=== PATIENT | male | born 1935 ===

== ENCOUNTER 2025-05-15 18:32 | Outpatient (CLI) | payer MEDICARE, BC, SELFPAY ==
--- OUTSIDE RECORDS SUMMARY | 2013-03-10 07:01 | XMS_ITS | Continuity of Care Document ---
Author Organization [facility] Kamilla Conradt h PA Address [address] [address] [place] [address] Phone Care Team Providers Care Coupon And Bond Collection Clerk Name Role Phone Alonzo Ramirez MD Unavailable Unavailable Procedures Procedure Date Colonoscopy Flex; W/bx 1/mx Colonoscopy Flex; W/remov Les- 13 Ugi Endo; Dx W/wo Collec Specm 07 Advance Directives Directive Yes / No Effective Date File Name No Information Encounters Encounter Description Practice Location Reason(s) For Visit Diagnoses Date Provider Providers Copied on Encounter [facility], [address] [address], [place], [place], [address], tel:[phone] [facility] [place] No Information James Rosado. [address] [place] [address], [address], [id number], [place]. tel:[phone] [facility], [address] [address], [place], [place], [address], [place] tel:[phone] [facility] No Information James Rosado. [address] [facility], [facility] [address], [place], [place], [address], [place]. tel:[phone] Referring Provider: Juve Lewis, [facility] [address] [place], [address]. tel:[phone] [facility], [address] [address], [place], [place], [address], tel:[phone] [facility] No Information James Rosado. [address] [facility], [address], [place], [place], [address], [place]. tel:[phone] Referring Provider: Juve Lewis, [address] [facility], [place], [address]. tel:[phone] Family History Family Member Type Diagnosis Age At Onset No Information Payers Payer name Insurance type Covered green party ID Authoriza tion(s) Medicare NGS MB [id number] [facility] [id number] Social History Type Description Quantity Date Captured [...]
--- OUTSIDE RECORDS SUMMARY | 2013-03-10 07:01 | XMS_ITS | Continuity of Care Document ---
Author Organization [facility] Kamilla Conradt h PA Address [address] [address] [place] [address] Phone Care Team Providers Care Certified Nurses' Aide Name Role Phone Alonzo Ramirez MD Unavailable Unavailable Procedures Procedure Date Colonoscopy Flex; W/bx 1/mx Colonoscopy Flex; W/remov Les- 13 Ugi Endo; Dx W/wo Collec Specm 07 Advance Directives Directive Yes / No Effective Date File Name No Information Encounters Encounter Description Practice Location Reason(s) For Visit Diagnoses Date Provider Providers Copied on Encounter [facility], [address] [address], [place], [place], [id number], tel:[phone] [place] No Information James Rosado. [address] [place] [address], [address], [id number], [place]. tel:[phone] [facility], [address] [address], [place], [place], [address], [place] tel:[phone] [facility] No Information James Rosado. [address] [facility], [facility] [address], [place], [place], [address], [place]. tel:[phone] Referring Provider: Juve Lewis, [facility] [address] [place], [address]. tel:[phone] [facility], [address] [address], [place], [place], [address], tel:[phone] [facility] No Information James Rosado. [address] [facility], [address], [place], [place], [address], [place]. tel:[phone] Referring Provider: Juve Lewis, [address] [facility], [place], [address]. tel:[phone] Family History Family Member Type Diagnosis Age At Onset No Information Payers Payer name Insurance type Covered alliance party ID Authoriza tion(s) Medicare NGS MB [id number] [facility] [id number] Social History Type Description Quantity Date Captured [...]
--- OUTSIDE RECORDS SUMMARY | 2025-05-09 14:02 | XMS_ITS | Encounter Summary ---
Author Organization [facility] Address [address] [place] [address] Care Team Providers Care Superintendent Container Terminal Name Role Phone Brionna Thapa APRN, C.N.P. Primary Care Provide r Encounter Details Date Type Department Care Team (Latest Contact Info) Description 05/09/2025 2:02 PM CDT - 05/09/2025 11:59 PM CDT Hospital Encounter Department of Laboratory Medicine in [place], [place] [address] [place] [phone] [address] M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 No 05/09/2025 Humiliation, Afraid, Rape, and Kick questionnair e Answer Date Recorded Within the last year, have y ou been afraid of your partner or ex-partner? No 06/30/2023 Within the last year, have y ou been humiliated or emotionally abused in other ways by your partner or ex-partner? No Within the last year, have y ou been kicked, hit, slapped, or otherwise physically hurt by your partner or ex-partner? No 06/30/2023 Within the last year, have y ou been raped or forced to have any kind of sexual activity by your partner or ex-partner? No 06/30/2023 Overall Financial Resource Strain (CARDIA) Answe r Date Recorded How hard is it for you to pa y for the very basics like food, housing, medical care, and heating? Not hard at all 06/30/2023 PHQ-2 Answer Date Recorded PHQ-2 Score 0 05/09/2025 Exercise Vital Sign Answer Date Recorde d On average, how many days pe r week do you engage in moderate to strenuous exercise (like a brisk walk)? 0 days 05/09/2025 On average, how many minutes do you engage in exercise at this level? 0 min 05/09/2025 Hunger Vital Sign Answer Date Recorded Within the past 12 months, y ou worried that your food would run out before you got the money to buy more. Never true 05/09/20 25 Within the past 12 months, t he food you bought just didn't last and you didn't have money to get more. Never true 05/09/2025 PRAPARE - Transportation Answer Date Re corded In the past 12 months, has l ack of transportation kept you from medical appointments or from getting medications? No 04/30 In the past 12 months, has l ack of transportation kept you from meetings, work, or from getting things needed for daily living? No 05/09/2025 Nutrition Answer Date Recorded On average, how many serving s of fruits and vegetables do you eat per day (serving size is equal to 1 cup or approximately the size of a tennis ball)? 3-5 05/09/2025 Dental Answer Date Recorded Dental: Regular Dentist Yes 06/30/20 Employment Answer Date Recorded Employment status Retired 05/09/2025 Housing Stability Answer Date Recorded What is your living situation today? 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 90 tablet 3 05/09/2025 apixaban (Eliquis) 2.5 mg tabletIndications: Atrial Fibrillation Paroxysmal (HCC) Take 1 tablet (2.5 mg total) by mouth 2 (two) times a day. 180 tablet 3 05/09/2025 blood sugar diagnostic strips (Contour Next Test Strips) TEST ONCE DAILY.(E11.22, KX) 100 each 3 02/05/2024 glipiZIDE (GlucotroL) 10 mg tabletIndications: Diabetes Mellitus Type 2 With Diabetic Chronic Kidney Disease (HCC) Take 1 tablet (10 mg total) by mouth 2 (two) times a day. 180 tablet 3 05/09/2025 insulin glargine (Lantus Solostar U-100 Insulin) 100 unit/mL (3 mL) penIndications:Estefany betes Mellitus Type 2 With Diabetic Chronic Kidney Disease (HCC) Inject 10 Units under the skin at bedtime. Pharmacy select brand per patient insurance/pref erence. 15 mL 11 05/09/2025 losartan (Cozaar) 25 mg tabletIndications: Chronic Kidney Disease (CKD), Stage 3a Glomerular Filtration Rate (GFR) 45 To 59 (HCC) Take 1 tablet (25 mg total) by mouth daily. 90 tablet 3 05/09/2025 metFORMIN (Glucophage) 1,000 mg tabletIndications: Diabetes Mellitus Type 2 With Diabetic Chronic Kidney Disease (HCC) Take 1 tablet (1,000 mg total) by mouth 2 (two) times a day with meals. 180 tablet 3 05/09/2025 pen needle, diabetic (Comfort EZ Pen [place]) 31 gauge x 1/4 needle 10 Units daily. 100 each 1 09/22/2022 rosuvastatin (Crestor) 20 mg tabletIndications: Hyperlipidemia Take 1 tablet (20 mg total) by mouth daily. 90 tablet 3 05/09/2025 Unifine Pentips 31 gauge x 3/16 needle USE WITH PENS 100 each 3 05/26/2024 documented as of this encounter Plan of Treatment Upcoming Encounters Date Type Department Care Team (Latest Contact Info) Description 05/23/2025 8:00 AM CDT Hospital Encounter Department of Radiology in [place], [place] [address] [facility] [place] [address] Brionna Thapa APRN, C.N.P. [address] [facility] [place] [phone] 05/23/2025 9:30 AM CDT Appointment Department of Cardiovascular Diseases in [place], [place] [address] [facility] [place] [address] Brionna Thapa APRN, C.N.P. [address] [place] [phone] 05/23/2025 10:00 AM CDT Appointment Department of Radiology in [place], [place] [address] [facility] [place] [address] Brionna Thapa APRN, C.N.P. 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 Or Unspecified Chronic Kidney Disease documented in this encounter Results * (ABNORMAL) CBC with Differential, Blood (05/09/2025 2:28 PM CDT) Hemoglobin 10.8(L) 13.2 - 16.6 g/dL 05/09/2025 7:30 PM CDT [facility] Hematocrit 33.0(L) 38.3 - 48.6 % 05/09/2025 7:30 PM CDT [facility] Erythrocytes 3.59(L) 4.35 - 5.65 x10(12)/L 05/09/2025 7:30 PM CDT [facility] MCV 91.9 78.2 - 97.9 fL 05/09/2025 7:30 PM CDT [facility] RBC Distrib Width 15.2(H) 11.8 - 14.5 % 05/09/2025 7:30 PM CDT [facility] Platelet Count 194 135 - 317 x10(9)/L 05/09/2025 7:30 PM CDT [facility] Leukocytes 4.9 3.4 - 9.6 x10(9)/L 05/09/2025 7:30 PM CDT [facility] Neutrophils 3.64 1.56 - 6.45 x10(9)/L 05/09/2025 7:30 PM CDT [facility] Lymphocytes 0.78(L) 0.95 - 3.07 x10(9)/L 05/09/2025 7:30 PM CDT [facility] Monocytes 0.32 0.26 - 0.81 x10(9)/L 05/09/2025 7:30 PM CDT [facility] Eosinophils 0.11 0.03 - 0.48 x10(9)/L 05/09/2025 7:30 PM CDT [facility] Basophils <0.04 0.01 - 0.08 x10(9)/L 05/09/2025 7:30 PM CDT [facility] Blood (Blood, Venous) 05/09/2025 2:28 PM CDT 05/09/2025 7:21 PM CDT us Juve Wade M.D. LAB BLOOD ADD-ON Final Re sult [facility] [address] [place] [address], [place] [facility] [place] [address] [place] [address] * (ABNORMAL) Basic Metabolic Panel (05/09/2025 2:28 PM CDT) Potassium, P 5.0 3.6 - 5.2 mmol/L 05/09/2025 7:39 PM CDT [facility] Sodium, P 141 135 - 145 mmol/L 05/09/2025 7:39 PM CDT [facility] Chloride, P 108(H) 98 - 107 mmol/L 05/09/2025 7:39 PM CDT [facility] Bicarbonate, P 22 22 - 29 mmol/L 05/09/2025 7:39 PM CDT [facility] Anion Gap, P 11 7 - 15 05/09/2025 7:39 PM CDT [facility] BUN (Blood Urea Nitrogen), P 20 8 - 24 mg/dL 05/09/2025 7:39 PM CDT [facility] Creatinine 1.27 0.74 - 1.35 mg/dL 05/09/2025 7:39 PM CDT [facility] Estimated GFR (eGFR) 55(L) >=60 mL/min/BSA 05/09/2025 7:39 PM CDT [facility] Comment: Estimated GFR calculated using the 2020 CKD_EPI creatinine equation. Calcium, Total, P 9.3 8.8 - 10.2 mg/dL 05/09/2025 7:39 PM CDT [facility] Glucose, P 147(H) 70 - 140 mg/dL 05/09/2025 7:39 PM CDT [facility] Blood (Blood, Venous) 05/09/2025 2:28 PM CDT 05/09/2025 7:21 PM CDT us Juve Wade M.D. LAB BLOOD ADD-ON Final Zora leiva [facility] [address] [place] [address], [place] [facility] [place] [address] [place] [address] * (ABNORMAL) Hemoglobin A1c (05/09/2025 2:28 PM CDT) Hemoglobin A1c, B 7.6(H) 4.2 - 5.6 % 05/09/2025 7:48 PM CDT [facility] Comment: Hemoglobin A1c values greater than or equal to 6.5 percent are diagnostic for diabetes mellitus. Diagnosis should be confirmed by repeat testing. In diabetic patients, HbA1c goals should be discussed with healthcare provider. Blood (Blood, Venous) 05/09/2025 2:28 PM CDT 05/09/2025 7:21 PM CDT Juve Wade M.D. 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 [address] [place] [address] PCP - General 04/28/25 documented as of this encounter
--- OUTSIDE RECORDS SUMMARY | 2025-05-09 14:02 | XMS_ITS | Encounter Summary ---
Author Organization [facility] Address [address] [place] [address] Care Team Providers Care Paste Worker Name Role Phone Brionna Thapa APRN, C.N.P. Primary Care Provide r Encounter Details Date Type Department Care Team (Latest Contact Info) Description 05/09/2025 2:02 PM CDT - 05/09/2025 11:59 PM CDT Hospital Encounter Department of Laboratory Medicine in [place], [place] [address] [place] [phone] [address] M[address] [place] [phone] Diabetes Mellitus Type 2 With Diabetic Chronic [...] drink = 0.6 oz pur e alcohol) [facility] Utilities Answer Date Recorded In the [...] your living situation today? 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 [address] [place] [phone] 05/23/2025 9:30 AM CDT Appointment Department of Cardiovascular Diseases in [place], [place] [address] [place] [address] Brionna Thapa APRN, C.N.P. [address] [place] [phone] 05/23/2025 10:00 AM CDT Appointment Department of Radiology in [place], [place] [address] [place] [address] Brionna Thapa APRN, C.N.P. [address] [place] [phone] documented as of this encounter Procedures Procedure [...] M.D. LAB BLOOD ADD-ON Final Re sult [facility] [address] [place] [address], [place] [facility] [address] [place] [address] * (ABNORMAL) Basic Metabolic Panel (05/09/2025 2:28 [...] M.D. LAB BLOOD ADD-ON Final Zora leiva [facility] [address] [place] [address], [place] [facility] [address] [place] [address] * (ABNORMAL) Hemoglobin A1c (05/09/2025 2:28 PM [...] M.D. 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 [address] [place] [address] PCP - General 04/28/25 documented as of this encounter
--- OUTSIDE RECORDS SUMMARY | 2025-05-09 14:30 | XMS_ITS | Encounter Summary ---
Author Organization [facility] Address [address] [place] [address] Care Team Providers Care Title Insurance Agent Name Role Phone Brionna Thapa APRN, C.N.P. Primary Care Provide r Reason for Referral * Occupational Therapy (Routine) - Authorized Specialty Diagnoses / Procedures Referred By Isaac t Referred To Contact Diagnoses Loss Memory Procedures OT Evaluate and treat Brionna Thapa APRN, C.N.P. [address] [place] [address] Phone: tel: fax: [facility] Region Referral ID Status Reason Start Date Expiration Date V isits Requested Visits Authorized [id number] Authorized 05/09/2025 08/09/2026 99 99 * Outpatient (Routine) - Authorized Specialty Diagnoses / Procedures Referred By Contac t Referred To Contact Diagnoses Inadequate Housing Utilities Procedures Community health worker (CHW) education program Brionna Thapa APRN, C.N.P. [address] [place] [address] Phone: tel: fax: [facility] Region Referral ID Status Reason Start Date Expiration Date V isits Requested Visits Authorized [id number] Authorized 05/09/2025 08/09/2026 20 20 * Outpatient (Routine) - Authorized Specialty Diagnoses / Procedures Referred By Contac t Referred To Contact Diagnoses Pain Chest Procedures NM Cardiac Perfusion Rest and Stress SPECT Brionna Thapa APRN, C.N.P. [address] [place] [address] Phone: tel: fax: [facility] Region Referral ID Status Reason Start Date Expiration Date V isits Requested Visits Authorized [id number] Authorized 05/09/2025 08/09/2026 4 4 * Outpatient (Routine) - Closed Specialty Diagnoses / Procedures Referred By Contac t Referred To Contact Diagnoses Pain Chest Procedures ECG 12 Lead [place] EKG 12 LEAD W I&R Brionna Thapa APRN, C.N.P. [address] [place] [address] Phone: tel: fax: [facility] Region Referral ID Status Reason Start Date Expiration Date Visits Re quested Visits Authorized [id number] Closed 05/09/2025 08/09/2026 1 1 Reason for Visit * Reason Comments Diabetes * Outpatient (Routine) - Closed Specialty Diagnoses / Procedures Referred By Contac t Referred To Contact Family Medicine Juve Wade M.D. [address] [place] [address] Phone: tel: fax: [facility] Region Referral ID Status Reason Start Date Expiration Date Visits Re quested Visits Authorized [id number] Closed 11/22/2024 05/24/2026 1 1 Encounter Details Date Type Department Care Team (Late st Contact Info) Description 05/09/2025 2:30 PM CDT Office Visit Department of Family Medicine in [place] [address] [place] [address] Brionna Thapa, JAKOB, C.N.P. [address] [place] [phone] Advanced Care Planning (Primary Dx); Pain Chest; [...] drink = 0.6 oz pur e alcohol) [facility] Utilities Answer Date Recorded In the past 12 months has [employer], [employer], or water [employer] threatened to shut off services in your [...] your living situation today? 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 - 05/09/2025 2:30 PM CDT SUBJECTIVE CHIEF COMPLAINT / REASON FOR VISIT Diabetes HISTORY OF PRESENT ILLNESS Jean Claude Zamora is a 89 y.o. male who presents [...] Glomerular Filtration Rate (GFR) 45 To 59 ([facility]) Blood pressure is mildly elevated today which [...] point we will arrange for a driving evaluation.If memory is worsening patient will need further evaluation. - OT Evaluate and treat; Future All of patient's questions were answered. Patient is agreeable with plan outlined above. Patient will return to clinic if symptoms do not improve as expected or become worse. documented in this encounter Plan of Treatment Upcoming Encounters Date Type Department Care Team (Latest Contact Info) Description 05/23/2025 8:00 AM CDT Hospital Encounter Department of Radiology in [place], [place] [address] [facility] [place] [phone] Brionna Thapa APRN, C.N.P. [address] [place] [facility] [place] [phone] 05/23/2025 9:30 AM CDT Appointment Department of Cardiovascular Diseases in [place], [place] [address] [facility] [place] [phone] Brionna Thapa APRN, C.N.P. [address] [place] [phone] 05/23/2025 10:00 AM CDT Appointment Department of Radiology in [place], [place] [address] [place] [phone] Brionna Thapa APRN, C.N.P. [address] [place] [phone] Scheduled Orders Name Type Priority Associated Diagnoses [...] MUSE QTC Interval 521 ms MUSE R [place] -85 degrees MUSE T Wave [place] 93 degrees MUSE 05/10/2025 10:2 7 AM [...] replaced Atrial tachycardia Reviewed by DALIA Chase us Brionna Thapa APRN, C.N.P. ECG ORDERABLES Edite [...] Memory Pain Chest documented in this encounter Care Teams Title Insurance Agent Relationship Specialty Start Date End Date Brionna Thapa APRN, [place] [phone] PCP - General 04/28/25 documented as of this encounter
--- OUTSIDE RECORDS SUMMARY | 2025-05-09 14:30 | XMS_ITS | Encounter Summary ---
Author Organization [facility] Address [address] [place] [address] Care Team Providers Care Dry Press Operator Name Role Phone Brionna Thapa APRN, C.N.P. Primary Care Provide r Reason for Referral * Occupational Therapy (Routine) - Authorized Specialty Diagnoses / Procedures Referred By Isaac t Referred To Contact Diagnoses Loss Memory Procedures OT Evaluate and treat Brionna Thapa APRN, C.N.P. [address] [place] [address] Phone: tel: fax: [facility] Region Referral ID Status Reason Start Date Expiration Date V isits Requested Visits Authorized [id number] Authorized 05/09/2025 08/09/2026 99 99 * Outpatient (Routine) - Authorized Specialty Diagnoses / Procedures Referred By Contac t Referred To Contact Diagnoses Inadequate Housing Utilities Procedures Community health worker (CHW) education program Brionna Thapa APRN, C.N.P. [address] [place] [address] Phone: tel: fax: [facility] Region Referral ID Status Reason Start Date Expiration Date V isits Requested Visits Authorized [id number] Authorized 05/09/2025 08/09/2026 20 20 * Outpatient (Routine) - Authorized Specialty Diagnoses / Procedures Referred By Contac t Referred To Contact Diagnoses Pain Chest Procedures NM Cardiac Perfusion Rest and Stress SPECT Brionna Thapa APRN, C.N.P. [address] [place] [address] Phone: tel: fax: [facility] Region Referral ID Status Reason Start Date Expiration Date V isits Requested Visits Authorized [id number] Authorized 05/09/2025 08/09/2026 4 4 * Outpatient (Routine) - Closed Specialty Diagnoses / Procedures Referred By Contac t Referred To Contact Diagnoses Pain Chest Procedures ECG [address] EKG 12 LEAD W I&R Brionna Thapa APRN, C.N.P. [address] [place] [address] Phone: tel: fax: [facility] Region Referral ID Status Reason Start Date Expiration Date Visits Re quested Visits Authorized [id number] Closed 05/09/2025 08/09/2026 1 1 Reason for Visit * Reason Comments Diabetes * Outpatient (Routine) - Closed Specialty Diagnoses / Procedures Referred By Contac t Referred To Contact Family Medicine Juve Wade M.D. [address] [place] [address] Phone: tel: fax: [facility] Region Referral ID Status Reason Start Date Expiration Date Visits Re quested Visits Authorized [id number] Closed 11/22/2024 05/24/2026 1 1 Encounter Details Date Type Department Care Team (Late st Contact Info) Description 05/09/2025 2:30 PM CDT Office Visit Department of Family Medicine in [place] [address] [place] [address] Brionna Thapa, JAKOB, C.N.P. [address] [place] [phone] Advanced Care Planning (Primary Dx); Pain Chest; [...] drink = 0.6 oz pur e alcohol) [facility] Utilities Answer Date Recorded In the past 12 months has [employer], [employer], or water [employer] threatened to shut off services in your [...] your living situation today? 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 - 05/09/2025 2:30 PM CDT SUBJECTIVE [...] Glomerular Filtration Rate (GFR) 45 To 59 ([facility]) Blood pressure is mildly elevated today which [...] CDT Hospital Encounter Department of Radiology in [place], [place] [address] [place] [phone] Brionna Thapa APRN, C.N.P. [address] [place] [facility] [place] [phone] 05/23/2025 9:30 AM CDT Appointment Department of Cardiovascular Diseases in [place], [place] [address] [place] [phone] Brionna Thapa APRN, C.N.P. [address] [place] [phone] 05/23/2025 10:00 AM CDT Appointment Department of Radiology in [place], [place] [address] [place] [phone] Brionna Thapa APRN, C.N.P. [address] [place] [phone] Scheduled Orders Name Type Priority Associated Diagnoses [...] MUSE QTC Interval 521 ms MUSE R [place] -85 degrees MUSE T Wave [place] 93 degrees MUSE 05/10/2025 10:2 7 AM [...] Chest documented in this encounter Care Teams Dry Press Operator Relationship Specialty Start Date End Date Brionna Thapa APRN[place] [phone] PCP - General 04/28/25 documented as of this encounter
--- OUTSIDE RECORDS SUMMARY | 2025-05-09 15:00 | XMS_ITS | Encounter Summary ---
Author Organization [facility] Address [address] [place] [address] Care Team Providers Care Sports Therapist Name Role Phone Brionna Thapa APRN, C.N.P. Primary Care Provide r Reason for Referral * Outpatient (Routine) - Authorized Specialty Diagnoses / Procedures Referred By Isaac murray Referred To Contact Family Medicine Brionna Thapa APRN, C.N.P. [address] [place] [address] Phone: tel: fax: [facility] Region Referral ID Status Reason Start Date Expiration Date V isits Requested Visits Authorized [id number] Authorized 05/09/2025 11/08/2026 1 1 Scheduling Instructions 12-Month Medicare Visit Reason for Visit * Reason Comments Medicare Annual Wellness Visit Subsequen t Encounter Details Date Type Department Care Team (Late st Contact Info) Description 05/09/2025 3:00 PM CDT Office Visit Department of Family Medicine in [place], [place] [address] [place] [phone] Zita Rooney, R.N. Annual Medicare Examination Return (Primary Dx) Social History Tobacco Use Types Packs/Day Years Used Date Smoking Tobacco: Never Smokeless Tobacco: Never Alcohol Use Standard Drinks/Week Comments Not Currently 0 (1 standard drink = 0.6 oz pur e alcohol) [facility] Utilities Answer Date Recorded In the past 12 months has th e electric, gas, oil, or water company [...] your living situation today? 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 - 05/09/2025 3:00 PM CDT HEALTH ASSESSMENT Reason For Visit Patient presents with Medicare Annual Wellness Visit Subsequent Face to Face The following portions of the patient's history were reviewed and updated as appropriate: allergies, medications, family history, social history, surgical history and care team/suppliers. VITALS Blood Pressure: 146/73 (05/09/2025 2:06 PM) Temperature: 36.6 ??C (05/09/2025 2:01 PM) Temp Source: Temporal (05/09/2025 2:01 PM) Pulse Rate: 81 (05/09/2025 2:01 PM) BMI (Calculated): 31 kg/m?? (05/09/2025 2:01 PM) SpO2: 94 % (05/09/2025 2:01 PM) Height: 172.4 cm (05/09/2025 2:01 PM) Weight: 92.1 kg (05/09/2025 2:01 PM) Health Risk Assessment and Social Drivers of Health Health Risk Assessment (HRA) completed and reviewed: Yes Social Drivers of Health (SDOH) questionnaires were reviewed during this visit. The following concerns were prioritized to be addressed: No concerns identified. Depression Screening PHQ-2 Score: 0 Cognitive Assessment Score is 2 or less, provider notified to complete more detailed cognitive evaluation. Education provided. Current Opioid Use None Education regarding non-opioid options for pain management not applicable at this time. FUNCTIONAL/HOME ENVIRONMENT History of falls: Have you fallen within the last year or do you fear you might fall?: No (05/09/2025 2:04 PM) Do you use an assisted device to walk? (Walker, cane, wheelchair, crutch): No (05/09/2025 2:04 PM) Today, do you feel any of the following? Weak, dizzy, shaky, or unsteady?: No (05/09/2025 2:04 PM) Have you taken any medication within the last 6 hours which may make you feel drowsy? Such as sleep, pain, or anxiety medication: No (05/09/2025 2:04 PM) Home Safety Patient's home contains the following: Throw Rugs No. Adequate lighting: Yes. Slippery bathtub and/or shower surfaces: No. Grab bars installed in the bathroom: No. Discussed that these may help to reduce the risk of falls and patient will consider installing them as appropriate. Handrails on steps/stairs: Yes. Functional smoke/carbon monoxide alarms: Yes. Patient is reminded to change the batteries every 6 months if device is not A/C powered or hard-wired into the home. Advance Directive Advance Directives: Not Received Advance directive information given. Preventive Services Schedule Health Maintenance Topic Date Due Zoster Vaccines (1 of 2) Never done Hepatitis B Vaccines (1 of 3 - Risk 3-dose series) Never done DTaP,Tdap,and Td Vaccines (2 - Td or Tdap) 10/11/2023 Diabetic Office Visit with Foot Exam 03/17/2024 Visit: Medicare Annual Wellness 2024 Creatinine Level (Kidney Function Test) 02/04/2025 Potassium Level 02/04/2025 Sodium Level 02/04/2025 Hemoglobin A1C 02/16/2025 Urine Albumin 08/08/2025 Visit: Chronic Disease, age 18+ 08/09/2025 COVID-19 Vaccine (2023- season) 2025 (Originally 03/11/2025) RSV vaccine - (32-36 weeks) or 60+ years (1 - 1-dose 75+ series) 05/10/2025 (Originally 2012) Influenza Vaccine (1) 05/10/2025 (Originally 08/30/2024) Dilated Eye Exam 01/11/2026 Depression Screening (Annual PHQ-2) Completed Fall Risk Screen (Annual) Completed Pneumococcal vaccine (50+ years) Completed IPV Vaccines Aged Out After Visit Summary (AVS) reviewed and patient provided with printed copy documented in this encounter Plan of Treatment Upcoming Encounters Date Type Department Care Team (Latest Contact Info) Description 05/23/2025 8:00 AM CDT Hospital Encounter Department of Radiology in [place] [address] [place] [address] Brionna Thapa APRN, C.N.P. [address] [place] [address] 05/23/2025 9:30 AM CDT Appointment Department of Cardiovascular Diseases in [place] [address] [place] [address] Brionna Thapa APRN, C.N.P. [address] [place] [address] 05/23/2025 10:00 AM CDT Appointment Department of Radiology in [place] [address] [place] [address] Brionna Thapa APRN, C.N.P. [address] [place] [address] Scheduled Referrals Name Type Priority Associated Diagnoses Orde r Schedule Family Medicine nurse visit (clinic) Outpatient Referral Routine Expected: 05/09/2026 (Approximate), Expires: 08/09/2026 documented as of this encounter Visit Diagnoses Diagnosis Annual Medicare Examination Return- Primary documented in this encounter Care Teams Sports Therapist Relationship Specialty Start Date End Date Brionna Thapa APRN, C.N.P. [address] [place] [address] PCP - General 04/28/25 documented as of this encounter
--- OUTSIDE RECORDS SUMMARY | 2025-05-09 15:00 | XMS_ITS | Encounter Summary ---
Author Organization [facility] Address [address] [place] [address] Care Team Providers Care [facility] Name Role Phone Brionna Thapa APRN, C.N.P. Primary Care Provide r Reason for Referral * Outpatient (Routine) - Authorized Specialty Diagnoses / Procedures Referred By Isaac murray Referred To Contact Family Medicine Brionna Thapa APRN, C.N.P. [address] [place] [address] Phone: tel: fax: [facility] Region Referral ID Status Reason Start Date Expiration Date V isits Requested Visits Authorized [id number] Authorized 05/09/2025 11/08/2026 1 1 Scheduling Instructions 12-Month Medicare Visit Reason for Visit * Reason Comments Medicare Annual Wellness Visit Subsequen t Encounter Details Date Type Department Care Team (Late st Contact Info) Description 05/09/2025 3:00 PM CDT Office Visit Department of Family Medicine in [place], [place] [address] [place] [phone] Zita Rooney, R.N. Annual Medicare Examination Return (Primary Dx) Social History Tobacco Use Types Packs/Day Years Used Date Smoking Tobacco: Never Smokeless Tobacco: Never Alcohol Use Standard Drinks/Week Comments Not Currently 0 (1 standard drink = 0.6 oz pur e alcohol) [facility] Utilities Answer Date Recorded In the past [...] your living situation today? 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 [address] [place] [address] 05/23/2025 9:30 AM CDT Appointment Department of Cardiovascular Diseases in [place] [address] [place] [address] Brionna Thapa APRN, C.N.P. [address] [place] [address] 05/23/2025 10:00 AM CDT Appointment Department of Radiology in [place] [address] [place] [address] Brionna Thapa APRN, C.N.P. [address] [place] [address] Scheduled Referrals Name Type Priority Associated Diagnoses Orde r Schedule Family Medicine nurse visit (clinic) Outpatient Referral Routine Expected: 05/09/2026 (Approximate), Expires: 08/09/2026 documented as of this encounter Visit Diagnoses Diagnosis Annual Medicare Examination Return- Primary documented in this encounter Care Teams [facility] Relationship Specialty Start Date End Date Brionna Thapa APRN, C.N.P. [address] [place] [address] PCP - General 04/28/25 documented as of this encounter
--- OUTSIDE RECORDS SUMMARY | 2025-05-10 10:14 | XMS_ITS | Encounter Summary ---
Author Organization [facility] Address [address] [place] [address] Care Team Providers Care Jet Mechanic Name Role Phone Brionna Thapa APRN, C.N.P. Primary Care Provide r Reason for Referral * Outpatient (Routine) - Closed Specialty Diagnoses / Procedures Referred By Contac t Referred To Contact Diagnoses Pain Chest Procedures ECG 12 Lead [place] EKG 12 LEAD W I&R Brionna Thapa APRN, C.N.P. [address] [place] [address] Phone: tel: fax: [facility] Region Referral ID Status Reason Start Date Expiration Date Visits Re quested Visits Authorized [id number] Closed 05/09/2025 08/09/2026 1 1 Reason for Visit * Outpatient (Routine) - Closed Specialty Diagnoses / Procedures Referred By Contac t Referred To Contact Diagnoses Pain Chest Procedures ECG 12 Lead UT EKG 12 LEAD W I&R Brionna Thapa APRN, C.N.P. [address] [place] [address] Phone: tel: fax: [facility] Region Referral ID Status Reason Start Date Expiration Date Visits Re quested Visits Authorized [id number] Closed 05/09/2025 08/09/2026 1 1 Encounter Details Date Type Department Care Team (Latest Contact Info) Description 05/10/2025 10:14 AM CDT - 05/10/2025 11:59 PM CDT Hospital Encounter Department of Laboratory Medicine in [place], [place] [address] [place] [address] Brionna Thapa, JAKOB, C.N.P. [address] [place] [address] Pain Chest Discharge Disposition: Home or Self Care Social History Tobacco Use Types Packs/Day Years Used Date Smoking Tobacco: Never Smokeless Tobacco: Never Alcohol Use Standard Drinks/Week Comments Not Currently 0 (1 standard drink = 0.6 oz pur e alcohol) [facility] Utilities Answer Date Recorded In the past 12 months has e [employer], gas, oil, or water [employer] threatened to shut off services in your [...] your living situation today? 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 [address] [place] [address] 05/23/2025 9:30 AM CDT Appointment Department of Cardiovascular Diseases in [place], [place] [address] [place] [address] Brionna Thapa APRN, C.N.P. [address] [place] [address] 05/23/2025 10:00 AM CDT Appointment Department of Radiology in [place], [place] [address] [facility] [place] [phone] Brionna Thapa APRN, C.N.P. [address] [place] [phone] documented as of this encounter Procedures Procedure Name Priority Date/Time Associated Diagnosis Comments ECG Routine 05/10/2025 10:27 AM CDT Pain Chest documented in this encounter Results * ECG 12 Lead (05/10/2025 10:27 AM CDT) Ventricular Rate ECG/Min 61 BPM MUSE QRSD Interval 194 ms MUSE QT Interval 518 ms MUSE QTC Interval 521 ms MUSE R [place] -85 degrees MUSE T Wave [place] 93 degrees MUSE 05/10/2025 10:2 7 AM [...] documented in this encounter Visit Diagnoses Diagnosis Pain Chest documented in this encounter Care Teams Jet Mechanic Relationship Specialty Start Date End Date Brionna Thapa APRN, C.N.P. [address] [place] [address] PCP - General 04/28/25 documented as of this encounter
--- OUTSIDE RECORDS SUMMARY | 2025-05-10 10:14 | XMS_ITS | Encounter Summary ---
Author Organization [facility] Address [address] [place] [address] Care Team Providers Care Check Writing Machine Operator Name Role Phone Brionna Thapa APRN, C.N.P. Primary Care Provide r Reason for Referral * Outpatient (Routine) - Closed Specialty Diagnoses / Procedures Referred By Contac t Referred To Contact Diagnoses Pain Chest Procedures ECG 12 Lead GA EKG 12 LEAD W I&R Brionna Thapa APRN, C.N.P. [address] [place] [address] Phone: tel: fax: [facility] Region Referral ID Status Reason Start Date Expiration Date Visits Re quested Visits Authorized [id number] Closed 05/09/2025 08/09/2026 1 1 Reason for Visit * Outpatient (Routine) - Closed Specialty Diagnoses / Procedures Referred By Contac t Referred To Contact Diagnoses Pain Chest Procedures ECG 12 Lead GA EKG 12 LEAD W I&R Brionna Thapa APRN, C.N.P. [address] [place] [address] Phone: tel: fax: [facility] Region Referral ID Status Reason Start Date Expiration Date Visits Re quested Visits Authorized [id number] Closed 05/09/2025 08/09/2026 1 1 Encounter Details Date Type Department Care Team (Latest Contact Info) Description 05/10/2025 10:14 AM CDT - 05/10/2025 11:59 PM CDT Hospital Encounter Department of Laboratory Medicine in [place], [place] [address] [place] [address] Brionna Thapa, JAKOB, C.N.P. [address] [place] [address] Pain Chest Discharge Disposition: Home or Self Care Social History Tobacco Use Types Packs/Day Years Used Date Smoking Tobacco: Never Smokeless Tobacco: Never Alcohol Use Standard Drinks/Week Comments Not Currently 0 (1 standard drink = 0.6 oz pur e alcohol) [facility] Utilities Answer Date Recorded In the past 12 months has e [employer], gas, oil, or water [employer] threatened to shut off services in your [...] your living situation today? I have a [facility] place to live 05/09/2025 Sex and Gender Information Value Date Recorded Sex Assigned at Male 08/20/2021 10:13 AM CDT Legal Sex Male 4:47 PM METAL MIN[employer] Gender Identity Not on file Sexual Orientation [...] 05/09/2025 pen needle, diabetic (Comfort EZ Pen Calmar) 31 gauge x 1/4 needle 10 Units [...] CDT Hospital Encounter Department of Radiology in [place], [place] [address] [place] [address] Brionna Thapa APRN, C.N.P. [address] [place] [address] 05/23/2025 9:30 AM CDT Appointment Department of Cardiovascular Diseases in [place], [place] [address] [place] [facility] [place] [address] Brionna Thapa APRN, C.N.P. [address] [place] [address] 05/23/2025 10:00 AM CDT Appointment Department of Radiology in [place], [place] [address] [facility] [place] [place] [phone] Brionna Thapa APRN, C.N.P. [address] [place] [phone] documented as of this encounter Procedures Procedure Name Priority Date/Time Associated Diagnosis Comments ECG Routine 05/10/2025 10:27 AM CDT Pain Chest documented in this encounter Results * ECG 12 Lead (05/10/2025 10:27 AM CDT) Ventricular Rate ECG/Min 61 BPM MUSE QRSD Interval 194 ms MUSE QT Interval 518 ms MUSE QTC Interval 521 ms MUSE R [place] -85 degrees MUSE T Wave [place] 93 degrees MUSE 05/10/2025 10:2 7 AM [...] Chest documented in this encounter Care Teams Check Writing Machine Operator Relationship Specialty Start Date End Date Brionna Thapa APRN, C.N.P. [address] [place] [address] PCP - General 04/28/25 documented as of this encounter
--- OUTSIDE RECORDS SUMMARY | 2025-05-18 18:10 | XMS_ITS | Encounter Summary ---
Author Organization [facility] Address [address] [place] [address] Care Team Providers Care Plant Tender Name Role Phone Brionna Thapa APRN, C.N.P. Primary Care Provide r Encounter Details Date Type Department Care Team (Late st Contact Info) Description 05/11/2025 Results Follow-Up Department of Family Medicine in [place], [place] [address] [place] [phone] Brionna Thapa APRN, C.N.P. [address] [place] [address] ECG 12 Lead Social History Tobacco Use Types Packs/Day Years Used Date Smoking Tobacco: Never Smokeless Tobacco: Never Alcohol Use Standard Drinks/Week Comments Not Currently 0 (1 standard drink = 0.6 oz pur e alcohol) [facility] Utilities Answer Date Recorded In the past 12 months has [facility] [employer], gas, oil, or water [employer] threatened to shut off services in your [...] your living situation today? 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 - 05/11/2025 7:31 AM CDT Please let Mr. Zamora know labs look OK. Plan to follow up with DM check in 6 months. His EKG is stable. Follow up with stress test as ordered. If symptoms worsen or do not go away with rest, he should go to the ER. Thanks, SF documented in this encounter Plan of Treatment Upcoming Encounters Date Type Department Care Team (Latest Contact Info) Description 05/23/2025 8:00 AM CDT Hospital Encounter Department of Radiology in [place] [address] [place] [address] Brionna Thapa APRN, C.N.P. [address] [place] [phone] 05/23/2025 9:30 AM CDT Appointment Department of Cardiovascular Diseases in [place] [address] [place] [address] Brionna Thapa APRN, C.N.P. [address] [place] [phone] 05/23/2025 10:00 AM CDT Appointment Department of Radiology in [place] [address] [place] [address] Brionna Thapa APRN, C.N.P. [address] [place] [phone] documented as of this encounter Visit Diagnoses Not on filedocumented in this encounter Care Teams Plant Tender Relationship Specialty Start Date End Date Brionna Thapa APRN, C.N.P. [address] [place] [phone] PCP - General 04/28/25 documented as of this encounter
--- OUTSIDE RECORDS SUMMARY | 2025-05-18 18:10 | XMS_ITS | Clinical Summary ---
Author Organization [facility] Address [address] [place] [address] Care Team Providers Care Supervisor Drying Name Role Phone Brionna Thapa APRN, C.N.P. Primary Care Provide r Source Comments Patient records contain information from all sites at [facility]. For routine questions regarding patient records, call [phone] during business hours, M-F 8:00 AM - 5:00 PM Central Time. Record requests for emergency care only can be directed to [phone] at any time.[facility] Allergies Active Allergy Reactions Criticality Noted Date Comments Daniel Inhibitors Edema (Reselect Reaction) 09/07/2018 Colchicine Other (see comments) Low 12/01/2018 Balance problems Sulfa (Sulfonamide Antibiotics) Rash 02/07/2013 Medications pen needle, diabetic (Comfort EZ Pen [place]) 31 gauge x 1/4 needle 10 Units daily. 100 each 1 09/22/20 22 Active blood sugar diagnostic strips (Contour Next Test Strips) TEST ONCE DAILY.(E11.22, KX) 100 each 3 02/05/20 24 Active Unifine Pentips 31 gauge x 3/16 needle USE WITH PENS 100 each 3 05/26/20 24 Active amLODIPine (Norvasc) 10 mg tabletIndicatio ns:Hypertensive Heart And Chronic Kidney Disease Without Heart Failure With Stage 1 To 4 Chronic Kidney Disease Or Unspecified Chronic Kidney Disease Take 1 tablet (10 mg total) by mouth daily. 90 tablet 3 05/09/20 25 Active apixaban (Eliquis) 2.5 mg tabletIndicatio ns:Atrial Fibrillation Paroxysmal (HCC) Take 1 tablet (2.5 mg total) by mouth 2 (two) times a day. 180 tablet 3 05/09/20 25 Active glipiZIDE (GlucotroL) 10 mg tabletIndicatio ns:Diabetes Mellitus Type 2 With Diabetic Chronic Kidney Disease (HCC) Take 1 tablet (10 mg total) by mouth 2 (two) times a day. 180 tablet 3 05/09/20 25 Active insulin glargine (Lantus Solostar U-100 Insulin) 100 unit/mL (3 mL) penIndications: Diabetes Mellitus Type 2 With Diabetic Chronic Kidney Disease (HCC) Inject 10 Units under the skin at bedtime. Pharmacy select brand per patient insurance/preferen ce. 15 mL 05/09/20 25 Active losartan (Cozaar) 25 mg tabletIndicatio ns:Chronic Kidney Disease (CKD), Stage 3a Glomerular Filtration Rate (GFR) 45 To 59 (HCC) Take 1 tablet (25 mg total) by mouth daily. 90 tablet 3 05/09/20 25 Active metFORMIN (Glucophage) 1,000 mg tabletIndicatio ns:Diabetes Mellitus Type 2 With Diabetic Chronic Kidney Disease (HCC) Take 1 tablet (1,000 mg total) by mouth 2 (two) times a day with meals. 180 tablet 3 05/09/20 25 Active rosuvastatin (Crestor) 20 mg tabletIndicatio ns:Hyperlipidem ia Take 1 tablet (20 mg total) by mouth daily. 90 tablet 3 05/09/20 25 Active Eliquis 2.5 mg tablet TAKE 1 TABLET BY MOUTH 2 TIMES A DAY. ANTICOAGULATION FOR AFIB 180 tablet 3 01/06/20 24 025 Discontin ued(Reord er) insulin glargine (Lantus Solostar U-100 Insulin) 100 unit/mL (3 mL) injection Inject 10 Units under the skin at bedtime. Pharmacy select brand per patient insurance/preferen ce. 15 mL 04/01/20 24 025 Discontin ued(Reord er) amLODIPine (Norvasc) 10 mg tablet take 1 tablet by mouth daily. 90 tablet 3 06/08/20 24 025 Discontin ued(Reord er) glipiZIDE (GlucotroL) 10 mg tablet take 1 tablet by mouth 2 times a day. 180 tablet 3 06/29/20 24 025 Discontin ued(Reord er) metFORMIN (Glucophage) 1,000 mg tablet TAKE 1 TABLET BY MOUTH 2 TIMES A DAY WITH MEALS. 180 tablet 2 01/26/20 25 025 Discontin ued(Reord er) losartan (Cozaar) 25 mg tablet Take 1 tablet (25 mg total) by mouth daily. Patient needs Labs for further refills. 90 tablet 03/24/20 25 025 Discontin ued(Reord er) rosuvastatin (Crestor) 20 mg tablet TAKE 1 TABLET BY MOUTH DAILY. 90 tablet 3 04/03/20 25 025 Discontin ued(Reord er) Active Problems Problem Noted Date Diagnosed Date Leukocytosis 03/19/2021 Herniorrhaphy Inguinal Status Post 03/18/2021 Diabetes Mellitus Type 2 Wit h Diabetic Chronic Kidney Disease 02/27/2021 Presence Cardioverter- Defibrillator (ICD And AI CD) 11/28/2019 Assessment & Plan (07/04/2020 8:54 AM CDT): status post ICD placement for secondary prevention of sudden cardiac after two episodes of fast ventricular tachycardia that resulted in syncope Following with Cardiology at [facility] Chronic Kidney Disease (CKD) , Stage 3a Glomerular Filtration Rate (GFR) 45 To 59 11/01/2019 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 Metoprolol was discontinued 1 week prior to his elective cardioversion. First attempt converted his atrial fibrillation is slow flutter with second attempt synchronized 150 J which put him back into sinus rhythm with significant first-degree AV block. Recommended results continued Xarelto for at least another month but does not need beta blockade due to his sinus node and AV node disease. [id number] score at least 3 (HTN, age-2) On Xarelto Overview: -12/30/2016 atrial fibrillation noted on Holter monitor revealed slow ventricular response ranging from 38-94 bpm with average ventricular response of 52. Metoprolol was discontinued 1 week prior to his elective cardioversion. First attempt converted his atrial fibrillation is slow flutter with second attempt synchronized 150 J which put him back into sinus rhythm with significant first-degree AV block. Recommended results continued Xarelto for at least another month but does not need beta blockade due to his sinus node and AV node disease. -03/01/2019 ECHO Normal left and right ventricular size and systolic performance, ejection fraction 65%. Moderate concentric left ventricular hypertrophy with probable moderate diastolic dysfunction. Moderate left and mild right atrial enlargement. Mild aortic, mitral, and tricuspid regurgitation. Moderately severe elevation in right ventricular systolic pressure estimate. Probable underlying sinus rhythm with first degree AV block, with initial ECG indicating probable atrial fibrillation with rapid ventricular response, heart rate 110-130 bpm, resolving during the remaining echo images. 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 Normal left ventricular size with moderate concentric left ventricular hypertrophy. Normal left ventricular systolic function, estimated ejection fraction 55-60%. Mitral annular calcification with mild mitral regurgitation. Aortic valve sclerosis. No significant stenosis. Mild aortic insufficiency. Moderate tricuspid regurgitation. RVSP 51 mmHg plus right atrial pressure. Probable trivial PFO. Resolved Problems Problem Noted Date Diagnosed Date Resolved Date Do Not Resuscitate Status 06/30/2023 Overview (06/30/2023): Discussed and patient confirms DNR/DNI desire at clinic visit 06/30/23. 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 ECG 12 Lead 05/10/2025 10:14 AM CDT - 05/10/2025 11:59 PM CDT Hospital Encounter Department of Laboratory Medicine in [place] [address] [place] [address] Brionna Thapa APRN, C.N.P. Pain Chest Discharge Disposition: Home or Self Care 05/09/2025 3:00 PM CDT Office Visit Department of Family Medicine in [address] [address] Zita Rooney R.N. Annual Medicare Examination Return (Primary Dx) 05/09/2025 2:30 PM CDT Office Visit Department of Family Medicine in [address] [address] Brionna Thapa APRN, C.N.P. 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 Diabetes Mellitus Type 2 With Diabetic Chronic Kidney Disease (HCC); Hypertensive Heart And Chronic Kidney Disease Without Heart Failure With Stage 1 To 4 Chronic Kidney Disease Or Unspecified Chronic Kidney Disease Discharge Disposition: Home or Self Care 03/31/2025 Refill Department of Family Medicine in [place], [place] [address] [place] [address] Juve Wade M.D. Med Refill 03/21/2025 Refill Department of Family Medicine in [place] [address] [place] [address] Juve Wade M.D. Med Refill from Last 3 Months Immunizations Immunization Administration Dates Next Due HepB Adult 02/03/2022(Deferred: Patient Ref used) HepB, Unspecified 02/03/2022(Deferred: Other) Influenza TIV (IM) 08/31/2019 Influenza high dose QV(65 ye ars or older) (PF) 08/25/2023,08/26/2022,08/26/2021,2019 Influenza, Seasonal, Injectable 10/11/2010 Influenza, Unspecified 09/07/2017,10/11/2013,11/2011 PCV13 07/11/2015 PPSV23 02/16/2007 RZV (SHINGRIX) 02/03/2022(Deferred: Patient Ref used) SARS-COV-2 (COVID-19) - MODE RNA (12 YEARS AND OLDER) Fall Seasonal 10/07/2023 SARS-COV-2 (COVID-19) - PFIZ ER (Discontinued)(12 years or older) 02/28/2021,02/07/2021 SARS-COV-2 (COVID-19) - PFIZ ER BIVALENT TS(Discontinued)(12 YEARS OR OLDER) 10/06/2022 SARS-COV-2 (COVID-19) - PFIZ ER Fall Seasonal (12 YEARS OR OLDER) 09/10/2024 SARS-COV-2 (COVID-19),NON-US,Unspecified(HISTORI STEFFANIE) 10/07/2023 Tdap 10/11/2013 Tetanus Toxoid, Adsorbed (discontinued) 08/15/2003 Zoster, Unspecified 02/03/2022(Deferred: Other) influenza trivalent high dos e (HD)(PF) 08/18/2018 Family History Medical History Relation Name Comments Stroke Brother Neal Stroke Father Maldonado Heart failure Mother Sunshine Relation Name Status Comments Brother Neal Father Maldonado Mother Sunshine Social History Tobacco Use Types Packs/Day Years Used Date Smoking Tobacco: Never Smokeless Tobacco: Never Tobacco Cessation:Counseling Given: No Alcohol Use Standard Drinks/Week Comments Not Currently 0 (1 standard drink = 0.6 oz pur e alcohol) [facility] Utilities Answer Date Recorded In the past 12 months has e [employer], gas, oil, or water [employer] threatened to shut off services in your [...] AM CDT 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 Gender Identity Not on file Sexual Orientation Not on file Last Filed Vital Signs Vital Sign Reading Time Taken Comments Blood Pressure 146/73 05/09/2025 2:06 PM CDT Pulse 81 05/09/2025 2:01 PM CDT Temperature 36.6 C (97.9 F) 05/09/2025 2:01 PM CDT Respiratory Rate 20 09/16/2024 10:13 AM CDT Oxygen Saturation 94% 05/09/2025 2:01 PM CDT Inhaled Oxygen Concentration - - Weight 92.1 kg (203 lb) 05/09/2025 2:01 PM CDT Height 172.4 cm (5' 7.87) 05/09/2025 2:01 PM CD T Body Mass Index 30.98 05/09/2025 2:01 PM CDT Plan of Treatment Upcoming Encounters Date Type Department Care Team (Latest Contact Info) Description 05/23/2025 8:00 AM CDT Hospital Encounter Department of Radiology in [place], [place] [address] [place] [address] Brionna Thapa APRN, C.N.P. [address] [place] [address] 05/23/2025 9:30 AM CDT Appointment Department of Cardiovascular Diseases in [place], [place] [address] [place] [address] Brionna Thapa, JAKOB, C.N.P. [address] [place] [address] 05/23/2025 10:00 AM CDT Appointment Department of Radiology in [place], [place] [address] [place] [address] Brionna Thapa, JAKOB, C.N.P. [address] [place] [address] Health Maintenance Due Date Last Done Comments Zoster Vaccines (1 of 2) 1987 Hepatitis B Vaccines (1 of 3 - Risk 3-dose series) 1997 RSV vaccine - (32-36 weeks) or 60+ years (1 - 1-dose 75+ series) 2012 DTaP,Tdap,and Td Vaccines (2 - Td or Tdap) 10/11/2023 10/11/2013 Diabetic Office Visit with Foot Exam 03/17/2024 03/17/2023, 06/17/2021, 05/10/2020, Additional history exists Influenza Vaccine (#1) 2024 , 08/26/2022, 08/26/2021, Additional history exists COVID-19 Vaccine ( season) 2025 09/10/2024, 10/07/2023, 10/07/2023, Additional history exists Urine Albumin 08/08/2025 08/08/2024, 08/30, 11/18/2021, Additional history exists Hemoglobin A1C 11/15/2025 05/16/2025, 04/30, 11/18/2024, Additional history exists Dilated Eye Exam 01/11/2026 01/11/2025 (Per formed elsewhere), 08/20/2022 (Performed elsewhere), 08/21/2020 (Performed elsewhere), Additional history exists Visit: Chronic Disease, age 18+ 05/09/2026 05/09/2025, 05/09/2025 Visit: Medicare Annual Wellness 05/10/2026 05/09/2025 Creatinine Level (Kidney Function Test) 05/17/2026 05/17/2025, 05/16/2025, 05/09/2025, Additional history exists Potassium Level 05/17/2026 05/17/2025, 04/30, 05/09/2025, Additional history exists Sodium Level 05/17/2026 05/17/2025, 04/30, 05/09/2025, Additional history exists Pneumococcal vaccine (50+ years) Completed 07/11/2015, 02/16/2007 Depression Screening (Annual PHQ-2) Completed 05/09/2025, 05/09/2025 Fall Risk Screen (Annual) Completed 05/09/2025 IPV Vaccines Aged Out No longer eligi ble based on patient's age to complete this topic Medical Devices Implanted Type Area Phd Internship Device Identifier Shelf Expiration Date Model / Serial / Lot Hip Implant Hip Implant Hip Description:left hip Mesh Or Patch Mesh or Patch Groin Msh Prt Una Lt 12x8 - [id number] Implanted:Qty : 1 on 03/18/2021 by Solis Mike M.D. at [facility] Mesh or Patch Left: Abdomen Medtronic 02/28/2024 [id number] / / [id number] Msh Prt Una Rt 12x8 - [id number] Implanted:Qty : 1 on 03/18/2021 by Solis Mike M.D. 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 To 4 Chronic Kidney Disease Or Unspecified Chronic Kidney Disease BASIC METABOLIC PANEL, S/P Routine 05/09/2025 2:28 PM CDT Diabetes Mellitus Type 2 With Diabetic Chronic Kidney Disease (HCC) Hypertensive Heart And Chronic Kidney Disease Without Heart Failure With Stage 1 To 4 Chronic Kidney Disease Or Unspecified Chronic Kidney Disease HEMOGLOBIN A1C, B Routine 05/09/2025 2:2 8 PM CDT Diabetes Mellitus Type 2 With Diabetic Chronic Kidney Disease (HCC) ALBUMIN, RANDOM, U Routine 08/08/2024 9: 14 AM CDT Diabetes Mellitus Type 2 With Other Circulatory Complication (HCC) from Last 3 Months or Most Recently Relevant to Health Maintenance Results * ECG 12 Lead (05/10/2025 10:27 AM CDT) Ventricular Rate ECG/Min 61 BPM MUSE QRSD Interval 194 ms MUSE QT Interval 518 ms MUSE QTC Interval 521 ms MUSE R [place] -85 degrees MUSE T Wave [place] 93 degrees MUSE 05/10/2025 10:2 7 AM [...] Edite d Result - Final MUSE NA * (ABNORMAL) CBC with Differential, Blood (05/09/2025 [...] M.D. LAB BLOOD ADD-ON Final Re sult Performing Organization Address [facility] Co de Phone Number [facility] [address] [place] [address], [facility] NPRG [place] [address] [place] [address] * (ABNORMAL) Hemoglobin A1c (05/09/2025 2:28 PM [...] M.D. LAB BLOOD ADD-ON Final Re sult Performing Organization Address [facility] Co de Phone Number [facility] [address] [place] [address], [facility] NPRG [place] [address] [place] [address] * (ABNORMAL) Basic Metabolic Panel (05/09/2025 2:28 [...] M.D. LAB BLOOD ADD-ON Final Re sult [facility] [address] [place] [address], [place] NPRG [facility] [address] [place] [address] * (ABNORMAL) Albumin, Random, Urine (08/08/2024 9:14 AM CDT) Microalbumin 45.0 mg/L 08/08/2024 12:26 PM CDT NPRG Creatinine 119 mg/dL 08/08/2024 12:26 PM CDT NPRG Albumin/Creatinin e Ratio 38(H) <17 mg/g 08/08/2024 12:26 PM CDT NPRG Urine (Urine, Midstream) 08/08/2024 9:14 AM CDT 08/08/2024 11:39 AM CDT us Juve Wade M.D. LAB URINE ORDERABLES Kailey l Result [facility] [address] [place] [address], [place] NPR[facility] [address] [place] [address] from Last 3 Months or Most Recently Relevant to Health Maintenance Insurance MEDICARE [facility] [place] [address] Advance Directives For more information, please contact: [phone] * Full Code (Latest Code Status on File) Date Activated Date Inactivated Comments 03/18/2021 10:54 AM 03/19/2021 3:48 PM Question Answer Comments Full Code: Discussed * Full Code Date Activated Date Inactivated Comments 10/26/2019 12:10 AM 10/26/2019 4:06 PM Question Answer Comments Full Code: Discussed Care Teams Supervisor Drying Relationship Specialty Start Date End Date Brionna Thapa APRN, C.N.P. [address] [place] [phone] PCP - General 04/28/25
--- OUTSIDE RECORDS SUMMARY | 2025-05-18 18:10 | XMS_ITS | Encounter Summary ---
Author Organization [facility] Address [address] [place] [address] Care Team Providers Care Skull Grinder Name Role Phone Juve Wade M.D. Primary Care Provider [phone] Reason for Visit * Reason Comments Med Refill Encounter Details Date Type Department Care Team (Late st Contact Info) Description 03/31/2025 Refill Department of Family Medicine in [place], [place] [address] [place] [address] Juve Wade M.D. [address] [place] [address] Med Refill Social History Tobacco Use Types Packs/Day Years Used Date Smoking Tobacco: Never Smokeless Tobacco: Never Alcohol Use Standard Drinks/Week Comments No 0 (1 standard drink = 0.6 oz pur e alcohol) Humiliation, Afraid, Rape, and Kick questionnair e [...] PHQ-2 Answer Date Recorded PHQ-2 Score 0 02/05/2024 Exercise Vital Sign Answer Date Recorde d On average, how many days pe r week do you engage in moderate to strenuous exercise (like a brisk walk)? 0 days 06/30/2023 On average, how many minutes do you engage in exercise at this level? 10 min 06/30/2023 Hunger Vital Sign Answer Date Recorded Within the past 12 months, y ou worried that your food would run out before you got the money to buy more. Never true 06/30/20 Within the past 12 months, t he food you bought just didn't last and you didn't have money to get more. Never true 06/30/2023 PRAPARE - Transportation Answer Date Re corded In the past 12 months, has l ack of transportation kept you from medical appointments or from getting medications? No 11/2022 In the past 12 months, has l ack of transportation kept you from meetings, work, or from getting things needed for daily living? No 06/30/2023 Nutrition Answer Date Recorded On average, how many serving s of fruits and vegetables do you eat per day (serving size is equal to 1 cup or approximately the size of a tennis ball)? 3-5 06/30/2023 Dental Answer Date Recorded Dental: Regular Dentist Yes 06/30/20 Employment Answer Date Recorded Employment status Retired 06/30/2023 Housing Stability Answer Date Recorded What is your living situation today? 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 [address] [place] [address], [place] [address] 05/23/2025 9:30 AM CDT Appointment Department of Cardiovascular Diseases in [place], [place] [address] [place] [address] Brionna Thapa APRN, C.N.P. [address] [place] [address], [place] [address] 05/23/2025 10:00 AM CDT Appointment Department of Radiology in [place] [address] [place] [address] Brionna Thapa APRN, C.N.P. [address] [place] [phone] documented as of this encounter Visit Diagnoses Not on filedocumented in this encounter Care Teams Skull Grinder Relationship Specialty Start Date End Date Juve Wade M.D. [address] [place] [phone] PCP - General 05/29/17 04/27/25 documented as of this encounter
--- OUTSIDE RECORDS SUMMARY | 2025-05-19 00:31 | XMS_ITS | Encounter Summary ---
Author Organization [facility] Address [address] [place] [address] Care Team Providers Care Professor Of Rhetoric Name Role Phone Brionna Thapa APRN, C.N.P. Primary Care Provide r Encounter Details Date Type Department Care Team (Late st Contact Info) Description 05/11/2025 Results Follow-Up Department of Family Medicine in [place], [place] [address] [place] [phone] Brionna Thapa APRN, C.N.P. [address] [place] [address] ECG 12 Lead Social History Tobacco Use Types Packs/Day Years Used Date Smoking Tobacco: Never Smokeless Tobacco: Never Alcohol Use Standard Drinks/Week Comments Not Currently 0 (1 standard drink = 0.6 oz pur e alcohol) [facility] Utilities Answer Date Recorded In the past 12 months has [facility] [employer], gas, oil, or water [employer] threatened to shut off services in your [...] your living situation today? 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 [address] [place] [phone] 05/23/2025 9:30 AM CDT Appointment Department of Cardiovascular Diseases in [place] [address] [place] [address] Brionna Thapa APRN, C.N.P. [address] [place] [phone] 05/23/2025 10:00 AM CDT Appointment Department of Radiology in [place] [address] [place] [address] Brionna Thapa APRN, C.N.P. [address] [place] [phone] documented as of this encounter Visit Diagnoses Not on filedocumented in this encounter Care Teams Professor Of Rhetoric Relationship Specialty Start Date End Date Brionna Thapa APRN, C.N.P. [address] [place] [phone] PCP - General 04/28/25 documented as of this encounter
--- OUTSIDE RECORDS SUMMARY | 2025-05-19 00:31 | XMS_ITS | Clinical Summary ---
Author Organization [facility] Address [address] [place] [address] Care Team Providers Care [employer] Consultant Name Role Phone Brionna Thapa APRN, C.N.P. Primary Care Provide r Source Comments Patient records contain information from all sites at [facility]. For routine questions regarding patient records, call [phone] during business hours, M-F 8:00 AM - 5:00 PM Central Time. 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 [id number] score at least 3 (HTN, age-2) On [...] bpm, resolving during the remaining echo images. [id number] score at least 3 (HTN, age-2) On [...] resulted in syncope Following with Cardiology at [facility] Gout 12/01/2018 02/27/2021 Age Related Nuclear Cataract Bilateral 07/29/2016 02/27/2021 Encounters Date Type Department Care Team Description 05/11/2025 Results Follow-Up Department of Family Medicine in [address] [phone] Brionna Thapa APRN, C.N.P. ECG 12 Lead 05/10/2025 10:14 AM CDT - 05/10/2025 11:59 PM CDT Hospital Encounter Department of Laboratory Medicine in [place] [address] [place] [address] Brionna Thapa APRN, C.N.P. Pain Chest Discharge Disposition: Home or Self Care 05/09/2025 3:00 PM CDT Office Visit Department of Family Medicine in [address] [phone] Zita Rooney R.N. Annual Medicare Examination Return (Primary Dx) 05/09/2025 2:30 PM CDT Office Visit Department of Family Medicine in [address] [phone] Brionna Thapa APRN, C.N.P. Advanced Care Planning [...] Hospital Encounter Department of Laboratory Medicine in [place] [address] [place] [address] Juve Wade M.D. 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 Med Refill 03/21/2025 Refill Department of Family Medicine in [place] [address] [place] [address] Juve Wade M.D. Med Refill from Last [...] drink = 0.6 oz pur e alcohol) [facility] Utilities Answer Date Recorded In the past 12 months has [employer], gas, oil, or water [employer] threatened to shut off services in your [...] your living situation today? 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 [address] [facility] [place] [address] 05/23/2025 9:30 AM CDT Appointment Department of Cardiovascular Diseases in [place], [place] [address] [place] [address] Brionna Thapa, JAKOB, C.N.P. [address] [facility] [place] [address] 05/23/2025 10:00 AM CDT Appointment Department of Radiology in [place], [place] [address] [place] [address] Brionna Thapa, JAKOB, C.N.P. 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 at [facility] Mesh or Patch Left: Abdomen Medtronic 02/28/2024 [id number] / / [id number] Msh Prt Una Rt 12x8 - [id number] Implanted:Qty : 1 on 03/18/2021 by Solis Mike M.D. at [facility] Mesh or Patch Left: Abdomen Medtronic 02/27/2025 [id number] / / [id number] Pacemaker Pacemaker Chest Wall Procedures Procedure Name [...] MUSE QTC Interval 521 ms MUSE R [place] -85 degrees MUSE T Wave [place] 93 degrees MUSE 05/10/2025 10:2 7 AM [...] ADD-ON Final Re sult Performing Organization Address [facility] Co de Phone Number [facility] [address] [place] [address], [facility] NPRG [place] [address] [place] [address] * (ABNORMAL) Hemoglobin A1c (05/09/2025 2:28 PM [...] ADD-ON Final Re sult Performing Organization Address [facility] Co de Phone Number [facility] [address] [place] [address], [facility] NPRG [place] [address] [place] [address] * (ABNORMAL) Basic Metabolic Panel (05/09/2025 2:28 [...] M.D. LAB BLOOD ADD-ON Final Re sult [facility] [address] [place] [address], [place] NPRG [facility] [address] [place] [address] * (ABNORMAL) Albumin, Random, Urine (08/08/2024 9:14 AM CDT) Microalbumin 45.0 mg/L 08/08/2024 12:26 PM CDT NPRG Creatinine 119 mg/dL 08/08/2024 12:26 PM CDT NPRG Albumin/Creatinin e Ratio 38(H) <17 mg/g 08/08/2024 12:26 PM CDT NPRG Urine (Urine, Midstream) 08/08/2024 9:14 AM CDT 08/08/2024 11:39 AM CDT us Juve Wade M.D. LAB URINE ORDERABLES Kailey l Result [facility] [address] [place] [address], [place] NPR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 [address] [place] [phone] PCP - General 04/28/25
--- OUTSIDE RECORDS SUMMARY | 2025-05-19 00:32 | XMS_ITS | Clinical Summary ---
Author Organization [facility] Address [facility] [place] [address] Care Team Providers Care Object Oriented Programmer Name Role Phone Juve Wade MD Primary Care Provider [phone] Allergies Active Allergy Reactions Criticality Noted Date Comments Daniel Inhibitors Edema 09/07/2018 Colchicine Dizziness Low 12/01/2018 Balance problems Sulfa (Sulfonamide Antibiotics) Rash 11/30 Medications glipiZIDE (GLUCOTROL) 10 mg tablet Take 1 tablet by mouth 2 times daily before meals. 0 12/16/19 17 Suspended sitaGLIPtin (JANUVIA) 50 mg tablet Take 1 tablet by mouth once daily. 0 12/16/19 17 025 Discontinued (Medication therapy change per hospital protocol (E-cancel not sent)) metFORMIN 1,000 mg tablet Take 1,000 mg by mouth two times daily with meals. Suspended rosuvastatin (CRESTOR) 20 mg tabletIndicatio ns:Diabetes mellitus type II, non insulin dependent (HC) Take 1 tablet by mouth at bedtime. 30 Each 9 10:57 AM SWEATBAND SEPARATOR 11/21/20 19 Suspended losartan (COZAAR) 25 mg tabletIndicatio ns:Essential hypertension Take 1 tablet by mouth once daily. 90 Each 9 10:57 AM SWEATBAND SEPARATOR 11/22/20 19 Suspended ELIQUIS 2.5 mg tabletIndicatio ns:Symptomatic bradycardia TAKE 1 TABLET TWICE A DAY FOR TREATMENT TO PREVENT BLOOD CLOTS IN CHRONIC ATRIAL FIBRILLATION 180 tablet 10/10/20 20 025 Discontinued (Medication therapy change per hospital protocol (E-cancel not sent)) dulaglutide (TRULICITY) 0.75 mg/0.5 mL injection Inject 0.75 mg subcutaneous. 08/13/20 20 025 Discontinued (Medication therapy change per hospital protocol (E-cancel not sent)) amLODIPine (NORVASC) 10 mg tabletIndicatio ns:Essential hypertension Take 1 Tablet (10 mg) by mouth once daily. 90 Tablet 3 03/05/20 21 Suspended furosemide (LASIX) 40 mg tabletIndicatio ns:Essential hypertension TAKE 1 TABLET EVERY MORNING 90 Tablet 2 05/29/20 21 Suspended apixaban 2.5 mg tablet Take 2.5 mg by mouth two times daily. 025 Discontinued (*Patient states no longer taking) Lantus Solostar U-100 Insulin 100 unit/mL (3 mL) pen Inject 10 units subcutaneous before bedtime. Suspended Active Problems Patient Care Coordination No te Formatting of this note migh t be different from the original. HF/Structural Research Eligibility Review Date: 12/28/19 The patient did not qualify for any currently enrolling studies at the time of this review. No recent hosp/BNP Problem Noted Date Diagnosed Date Cerebrovascular accident (CVA) 05/16/2025 Acute ischemic left MCA stroke 05/15/2025 Syncope 11/15/2019 Ventricular tachycardia 11/15/2019 CKD (chronic kidney disease) stage 3, GFR 30-59 ml/min 11/15/2019 Intermittent complete heart block 06/03/2019 Chronic bilateral leg edema 06/03/2019 VLAD on CKD3 06/03/2019 PAF/flutter 06/03/2019 Diabetes mellitus type II, non insulin dependent 02/17/2019 Chest discomfort 02/11/2019 Overview (02/16/2019): -07/24/2015 Stress ECHO Baseline ECG shows sinus rhythm with significant first degree AV block with AK interval of approximately 440 ms with right bundle branch block and left axis deviation. I have no previous ECG to compare. Resting heart rate was 55, so would be bradycardic. Resting blood pressure 160/70. Patient was started in Stage 1 of the Oswaldo protocol and exercised a total duration of 2 minutes and 55 seconds, reaching a maximum heart rate of 107 with it being 75% of maximum predicted heart rate of 142 and a maximum systolic blood pressure of 210 with a heart rate blood pressure product of 18,900. Exercise was stopped secondary to dyspnea. He did not have chest discomfort during exercise or recovery phase. The baseline echocardiography study demonstrates normal left ventricular size and systolic function. Visually estimated ejection fraction is 60%. Additional findings include moderate to severe concentric left ventricular hypertrophy, trace aortic regurgitation, trace mitral regurgitation and mitral annular calcification. This stress echocardiogram is negative for inducible ischemia. However, this is a suboptimal examination given that the patient did not achieve 85% of the target heart rate. Comment: Consider an alternative modality for assessment of ischemia if felt to be clinically indicated. Atrial fibrillation with slow ventricular respon se 02/11/2019 Overview (03/07/2019): -12/30/2016 atrial fibrillation noted on Holter monitor [...] bpm, resolving during the remaining echo images. [id number] score at least 3 (HTN, age-2) On Xarelto Essential hypertension 02/11/2019 Overview (02/11/2019): -01/18/2018 ECHO Sinus bradycardia; heart rate 50-55 bpm. Normal left ventricular size with moderate concentric left ventricular hypertrophy. Normal left ventricular systolic function, estimated ejection fraction 55-60%. Mitral annular calcification with mild mitral regurgitation. Aortic valve sclerosis. No significant stenosis. Mild aortic insufficiency. Moderate tricuspid regurgitation. RVSP 51 mmHg plus right atrial pressure. Probable trivial PFO. VLAD (acute kidney injury) Resolved Problems Problem Noted Date Diagnosed Date Resolved Date PAF (paroxysmal atrial fibrillation) 06/03/2019 06/03/2019 Leg swelling 02/17/2019 06/03/2019 Encounters Date Type Department Care Team Description 05/19/2025 Hospital Encounter [facility] [address] [place] [address] 05/16/2025 Telephone [employer] [facility] [address] [place] [phone] Carline Cardenas RN Device Check (MRI Checklist ) 05/15/2025 9:14 PM CDT - Present Hospital Encounter [facility] [address] [place] [address] Mello Casanova MD [facility], [facility] 05/15/2025 Office Visit [address] [address] Zoie Faye MD from Last 3 Months Family History Medical History Relation Name Comments Heart attack Father age 72 Relation Name Status Comments Father Social History Tobacco Use Types Packs/Day Years Used Date Smoking Tobacco: Former Smokeless Tobacco: Former Quit: 1960 Alcohol Use Standard Drinks/Week Comments Not Currently 0 (1 standard drink = 0.6 oz pur e alcohol) PHQ-2 Answer Date Recorded PHQ-2 Score 0 11/15/2019 Social Connections Answer Date Recorded Frequency of Communication with Friends and Fami ly Not on file 11/30/2021 Financial Resource Strain Answer Date R ecorded Difficulty of Paying Living Expenses Not on file 11/30/2021 Difficulty of Paying Living Expenses Not on file 11/30/2021 Sex and Gender Information Value Date Recorded Sex Assigned at Not on file Legal Sex Male 7:53 AM SWEATBAND SEPARATOR Gender Identity Not on file Sexual Orientation Not on file Obstetrics History Last Filed Vital Signs Vital Sign Reading Time Taken Comments Blood Pressure 165/66 05/19/2025 12:03 AM CDT Pulse 60 05/19/2025 12:03 AM CDT Temperature 36.8 C (98.3 F) 05/19/2025 12:03 AM CDT Respiratory Rate 16 05/19/2025 12:03 AM CDT Oxygen Saturation 95% 05/19/2025 12:03 AM CDT Inhaled Oxygen Concentration - - Weight 90.3 kg (199 lb 1.2 oz) 05/17/2025 12:00 AM CDT Height 177.8 cm (5' 10) 05/16/2025 1:00 AM CDT Body Mass Index 28.56 05/16/2025 1:00 AM CDT Plan of Treatment Upcoming Encounters Date Type Department Care Team (Late st Contact Info) Description 10/11/2025 11:30 AM SWEATBAND SEPARATOR Cardiac Device Check [facility] at [address] [address] Health Maintenance Due Date Last Done Comments Tdap 1948 Pneumococcal series for age 50+ (1 of 2 - PCV) 1956 Tetanus booster 1957 Zoster (shingles) series for age 50+ (1 of 2) 1987 Medicare Wellness for age 65+ 2002 RSV vaccine for adults or (1 - 1-dose 75+ series) 2012 Depression screening for age 12+ 11/19/2020 11/19/2019, 11/17/2019, 11/16/2019, Additional history exists BMI (ht and wt on same day) for age 18+ 10/10/2021 10/10/2020, 12/29/2019, 11/24/2019, Additional history exists COVID-19 vaccine series ( season) 2025 09/10/2024, 10/07/2023, 10/06/2022, Additional history exists Influenza Vaccine (Season Ended) 2025 Hepatitis B series for 19+ Aged Out N o longer eligible based on patient's age to complete this topic Medical Devices Implanted Type Area [place] Device Identifier Shelf Expiration Date Model / Serial / Lot Dual Chamber Mri 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 by Ming Hammond MD (Quantity not on file) Standard Pacemaker [employer] PERFECTO XT DR MCCULLOUGH [id number] / [id number] / Procedures * The patient is currently admitted. The information in this section might not be complete until the patient is discharged. Procedure Name Priority Date/Time Associated Diagnosis Comments GLUCOSE METER Timed 05/18/2025 9:51 PM CDT GLUCOSE METER Timed 05/18/2025 5:20 PM CDT GLUCOSE METER Timed 05/18/2025 12:00 PM CDT SCAN CORRESP-EKG RESULTS 05/18/2025 11:59 AM CDT PRO-BNP Today 05/18/2025 8:39 AM CDT BASIC METABOLIC PANEL Timed 05/18/2025 8:39 AM CDT WHITE BLOOD COUNT Today 05/18/2025 8:3 9 AM CDT MAGNESIUM Early AM 05/18/2025 8:39 AM CDT XR CHEST 1 VIEW PORTABLE Routine 05/18/2025 8:38 AM CDT GLUCOSE METER Timed 05/18/2025 7:23 AM CDT GLUCOSE METER Timed 05/18/2025 2:06 AM CDT SCAN-CARDIAC STRIP 05/18/2025 1: 26 AM CDT GLUCOSE METER Timed 05/17/2025 9:40 PM CDT GLUCOSE METER Timed 05/17/2025 9:36 PM CDT GLUCOSE METER Timed 05/17/2025 4:55 PM CDT SCAN-CARDIAC STRIP 05/17/2025 2: 13 PM CDT GLUCOSE METER Timed 05/17/2025 1:10 PM CDT GLUCOSE METER Timed 05/17/2025 7:58 AM CDT GLUCOSE METER Timed 05/17/2025 4:09 AM CDT HEMOGLOBIN Early AM 05/17/2025 3:42 AM CDT BASIC METABOLIC PANEL Early AM 05/17/2025 3:42 AM CDT MAGNESIUM Timed 05/17/2025 3:42 AM CDT SCAN-CARDIAC STRIP 05/17/2025 3: 35 AM CDT SCAN-CARDIAC STRIP 05/17/2025 12 :00 AM CDT GLUCOSE METER Timed 05/16/2025 10:30 PM CDT GLUCOSE METER Timed 05/16/2025 6:12 PM CDT MR HEAD BRAIN STROKE WWO MR ANGIO HEAD WO NECK WWO Routine 05/16/2025 4:32 PM CDT ECHO TTE COMPLETE W CONTRAST STAT 05/16/2025 3:08 PM CDT XR SHOULDER 2 VIEWS RIGHT PORTABLE Routine 05/16/2025 11:01 AM CDT XR HUMERUS MIN 2 VIEWS RIGHT PORTABLE Routine 05/16/2025 11:01 AM CDT GLUCOSE METER Timed 05/16/2025 10:06 AM CDT CBC WITH AUTO DIFFERENTIAL Early AM 05/16/2025 7:42 AM CDT BASIC METABOLIC PANEL Early AM 05/16/2025 7:42 AM CDT MAGNESIUM Early AM 05/16/2025 7:42 AM CDT HEMOGLOBIN A1C Early AM 05/16/2025 7:42 AM CDT CBC WITH AUTO DIFFERENTIAL Early AM 05/16/2025 7:42 AM CDT LIPID PANEL Early AM 05/16/2025 7:42 AM CDT PROTIME-INR Early AM 05/16/2025 7:42 AM CDT APTT Early AM 05/16/2025 7:42 AM CDT GLUCOSE METER Timed 05/15/2025 11:11 PM CDT IR ANGIO NEURO-INTERVENTIONAL STAT 05/15/2025 9:55 PM CDT from Last 3 Months Results * (ABNORMAL) GLUCOSE METER (05/18/2025 9:51 PM CDT) Only the most recent of15 resultswithin the time period is included. GLUCOSE METER 293(H) 65 - 100 mg/dL 05/18/2025 9:53 PM CDT [facility] Blood BLOOD SPECIMEN / Unknown 05/18/2025 9:51 PM CDT 05/18/2025 9:53 PM CDT Mello Casanova MD CHEMISTRY Final Result [facility] [address] [place] [address], * SCAN CORRESP-EKG RESULTS (05/18/2025 11:59 AM CDT) Narrative 05/18/2025 11:59 AM CDT Ordered by an unspecified provider. Other Clinical Staff OTHER Final Resul t * (ABNORMAL) WBC TODAY (05/18/2025 8:39 AM CDT) WHITE BLOOD COUNT 12.1(H) 4.5 - 11.0 thou/cu mm 05/18/2025 9:12 AM CDT [facility] NRBC 0.0 % 05/18/2025 9:12 AM CDT [facility] ABS NRBC 0.0 thou /cu mm 05/18/2025 9:12 AM CDT [facility] Blood BLOOD SPECIMEN / Unknown Butterfly / Unknown 05/18/2025 8:39 AM CDT 05/18/2025 8:56 AM CDT us Mello Casanova MD HEMATOLOGY Final Result Performing Organization Address [facility]/ZIP Co de Phone Number [facility] [address] [place] [address], [place] * (ABNORMAL) PRO-BNP (05/18/2025 8:39 AM CDT) [facility] PRO-BNP 7,429(H) <450 pg/mL 05/18/2025 9:39 AM CDT [facility] Blood BLOOD SPECIMEN / Unknown Butterfly / Unknown 05/18/2025 8:39 AM CDT 05/18/2025 8:56 AM CDT Narrative [facility] - 05/18/2025 9:39 AM CDT The following cut-points have been suggested for the use of proBNP for the diagnostic evaluation of heart failure (HF) in patient with acute dyspnea. Patients with eGFR >= 60 Diagnosis (rule in CHF) <50 Years Old 450 pg/mL 50 - 75 Years Old 900 pg/mL >75 Years Old 1800 pg/mL Exclusion (rule out CHF) Age Independent 300 pg/mL A cutoff of 1200 pg/mL for patients with an eGFR <60 yields a diagnostic sensitivity of 89% and specificity of 72% for acute congestive heart failure. us Mello Casanova MD SEND OUTS Final Result Performing Organization Address [facility] Co de Phone Number [facility] [address] [place] [address], [place] * MAGNESIUM (05/18/2025 8:39 AM CDT) Only the most recent of3 resultswithin the time period is included. MAGNESIUM 2.1 1.6 - 2.4 mg/dL 05/18/2025 9:39 AM CDT [facility] Blood BLOOD SPECIMEN / Unknown Butterfly / Unknown 05/18/2025 8:39 AM CDT 05/18/2025 8:56 AM CDT us Clarita Pino MD CHEMISTRY F inal Result [facility] [address] [place] [address], * (ABNORMAL) Basic metabolic panel TODAY (05/18/2025 8:39 AM CDT) Only the most recent of3 resultswithin the time period is included. SODIUM 137 136 - 145 mmol/L 05/18/2025 9:33 AM CDT [facility] POTASSIUM 4.8 3.5 - 5.1 mmol/L 05/18/2025 9:33 AM T [facility] CHLORIDE 104 98 - 107 mmol/L 05/18/2025 9:33 AM T [facility] CO2,TOTAL 19(L) 22 - 29 mmol/L 05/18/2025 9:33 AM T [facility] ANION GAP 14 5 - 18 05/18/2025 9:33 AM T [facility] GLUCOSE 296(H) 70 - 99 mg/dL 05/18/2025 9:33 AM T [facility] CALCIUM 8.6(L) 8.8 - 10.4 mg/dL 05/18/2025 9:33 AM T [facility] Comment: Reference ranges for this test were updated on 10/04/2024 to reflect our healthy population more accurately. Reference range changes are not retroactively applied to results, but previous results using the same methodology can be interpreted in the context of the new reference range. BUN 32(H) 8 - 23 mg/dL 05/18/2025 9:33 AM CDT [facility] CREATININE 1.27(H) 0.70 - 1.20 mg/dL 05/18/2025 9:33 AM CDT [facility] BUN/CREAT RATIO 25(H) 10 - 20 9:33 AM CDT [facility] eGFR 55(L) >90 mL/min/1. 73m2 05/18/2025 9:33 AM CDT [facility] Comment:As of 2022, eG FR is calculated by the CKD-EPI creatinine equation without race adjustment. eGFR can be influenced by muscle mass, exercise, and diet. The reported eGFR is an estimation only and is only applicable if the renal function is stable. Blood BLOOD SPECIMEN / Unknown Butterfly / Unknown 05/18/2025 8:39 AM CDT 05/18/2025 8:56 AM CDT us Mello Casanova MD CHEMISTRY Final Result [facility] [address] [place] [address], [place] * XR Chest 1 view portable (05/18/2025 8:38 AM CDT) Anatomical Region Laterality Modality HEART, THORAX, CHEST Digital Rad iography 05/18/2025 9:11 AM CDT Impressions 05/18/2025 9:11 AM CDT 1. Low lung volumes. 2. Dense left retrocardiac opacity is nonspecific. Infection and atelectasis can both be considered. 3. Likely volume overload/edema. Dictated by Samantha Greenberg MD @ Richard 2024 9:11AM (Electronically Signed) [email or web address] Narrative 05/18/2025 9:11 AM CDT For Patients: As a result of the Century Cures Act, medical imaging exams and procedure reports are released immediately into your electronic medical record. You may view this report before your referring provider. If you have questions, please contact your health care provider. INDICATION: Short of breath COMPARISON: 11/20/2019 TECHNIQUE: 1 view chest radiograph. FINDINGS: Devices: Left subclavian transvenous pacer/AICD with right atrial and right ventricular leads. Lung volumes are low. Dense left retrocardiac opacity. Central predominant bronchial wall thickening and interstitial markings. Indistinct vascular markings. Small left pleural effusion. No pneumothorax. No pneumomediastinum. Heart size is very large, probably accentuated by lung volumes and techniques. Bones: No acute findings. Procedure Note Samantha Greenberg MD - 05/18/2025 For Patients: As a result of the Cures Act, medical imagingexams and procedure reports are released immediately into your electronicmedical record. You may view this report before your referring provider.If you have questions, please contact your health care provider. INDICATION: Short of breath COMPARISON: 11/20/2019 TECHNIQUE: 1 view chest radiograph. FINDINGS: Devices: Left subclavian transvenous pacer/AICD with right atrial andright ventricular leads. Lung volumes are low. Dense left retrocardiac opacity. Central predominantbronchial wall thickening and interstitial markings. Indistinct vascularmarkings. Small left pleural effusion. No pneumothorax. Nopneumomediastinum. Heart size is very large, probably accentuated by lung volumes andtechniques. Bones: No acute findings. IMPRESSION: 1. Low lung volumes. 2. Dense left retrocardiac opacity is nonspecific. Infection andatelectasis can both be considered. 3. Likely volume overload/edema. Dictated by Samantha Greenberg MD @ May 18 2025 9:11AM (Electronically Signed) [email or web address] us Mello Casanova MD GENERAL IMAGING Final Result * SCAN-CARDIAC STRIP (05/18/2025 1:26 AM CDT) us Scanner OTHER Final Result * SCAN-CARDIAC STRIP (05/17/2025 2:13 PM CDT) us Scanner OTHER Final Result * (ABNORMAL) HEMOGLOBIN (05/17/2025 3:42 AM CDT) HEMOGLOBIN 9.4(L) 13.5 - 17.5 g/dL 05/17/2025 3:56 AM CDT [facility] MCV 92 80 - 100 fL 05/17/2025 3:56 AM CDT [facility] Blood BLOOD SPECIMEN / Unknown Venipuncture / Unknown 05/17/2025 3:42 AM CDT 05/17/2025 3:51 AM CDT us Roseanne Parson RACK WORKER HEMATOLOGY Final Res ult [facility] [address] [place] [address], [place] * SCAN-CARDIAC STRIP (05/17/2025 3:35 AM CDT) us Scanner OTHER Final Result * SCAN-CARDIAC STRIP (05/17/2025 12:00 AM CDT) us Scanner OTHER Final Result * MR MRA HEAD AND NECK STROKE INC BRAIN W/WO (05/16/2025 4:32 PM CDT) Anatomical Region Laterality Modality NECK, CAROTID, HEAD Magnetic Res onance 05/16/2025 5:26 PM CDT Addenda Addendum by Leobardo Tracey MD on 05/16/2025 5:27 PM CDT For Patients: As a result of the Century Cures Act, medical imaging exams and procedure reports are released immediately into your electronic medical record. You may view this report before your referring provider. If you have questions, please contact your health care provider. Indication: Evaluate cerebrovascular disease or ischemia. Technique: MRI brain: Multiplanar multisequence MR imaging of the brain prior to and following intravenous administration of 20 mL Clariscan. MRA head: Ziwi-wc-jovvzc imaging. MRA neck: Mtgc-jg-kggdkm and postcontrast imaging following intravenous administration of 20 mL Clariscan. Comparison: None. Findings: MRI brain: Moderate area of diffusion restriction and FLAIR hyperintensity within the left middle cerebral artery territory with involvement of the left basal ganglia, lateral left frontal lobe, as well as the left insula/subinsular region, compatible with acute to early subacute infarction. There is mild local mass effect. Minimal susceptibility infarct bed may represent petechial hemorrhage. Additional punctate recent infarctions within the left precentral and postcentral gyri and left occipital lobe. Hpmz-pv-ufdfevnt diffuse cerebral volume loss. No midline shift. Patchy FLAIR hyperintensities in the supratentorial white matter, typical for pnfe-vl-ngoamizq chronic microvascular ischemic changes. 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 No pathologic intracranial enhancement. The major arterial flow voids of the skull base are preserved. Thinning of the ocular lenses. Mild left maxillary sinus mucosal thickening. Mastoid air cells are clear. MRA head: The internal carotid, middle cerebral, and anterior cerebral arteries are patent. Pbvo-bf-rtfoaoao right and mild left cavernous internal carotid artery stenosis. Mild narrowing of the vertebral artery V4 segments. The basilar artery is widely patent. Moderate stenosis of the posterior cerebral artery proximal P2 segments. No intracranial aneurysm or high-flow vascular malformation. MRA neck: The innominate and subclavian arteries are patent. The common carotid arteries are widely patent. Atherosclerotic irregularity of the proximal cervical internal carotid arteries without hemodynamically significant luminal narrowing. The left vertebral artery is dominant. The vertebral artery origins and V1 segments are suboptimally evaluated. The vertebral arteries are otherwise widely patent. Impression: MRI brain: 1. 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 2. 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 3. Pexk-wg-qwzozwrw diffuse cerebral volume loss and chronic microvascular ischemic changes. MRA head/neck: 1. Intracranial atherosclerotic disease, including mbnz-zg-erdyfviq right and mild left cavernous internal carotid artery stenosis as well as moderate stenosis of the posterior cerebral artery P2 segments. 2. Atherosclerotic irregularity of the proximal cervical internal carotid arteries without hemodynamically significant luminal narrowing. Dictated by Leobardo Tracey MD @ 05/16/2025 5:27:39 PM (Electronically Signed) Addendum by Leobardo Tracey MD on 05/16/2025 5:27 PM CDT For Patients: As a result of the Century Cures Act, medical imaging exams and procedure reports are released immediately into your electronic medical record. You may view this report before your referring provider. If you have questions, please contact your health care provider. Indication: Evaluate cerebrovascular disease or ischemia. Technique: MRI brain: Multiplanar multisequence MR imaging of the brain prior to and following intravenous administration of 20 mL Clariscan. MRA head: Clpx-kk-airszx imaging. MRA neck: Irnw-zy-edosgz and postcontrast imaging following intravenous administration of 20 mL Clariscan. Comparison: None. Findings: MRI brain: Moderate area of diffusion restriction and FLAIR hyperintensity within the left middle cerebral artery territory with involvement of the left basal ganglia, lateral left frontal lobe, as well as the left insula/subinsular region, compatible with acute to early subacute infarction. There is mild local mass effect. Minimal susceptibility infarct bed may represent petechial hemorrhage. Additional punctate recent infarctions within the left precentral and postcentral gyri and left occipital lobe. Rowq-ff-ugedsbap diffuse cerebral volume loss. No midline shift. Patchy FLAIR hyperintensities in the supratentorial white matter, typical for rgzq-vy-hehaakpz chronic microvascular ischemic changes. 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 No pathologic intracranial enhancement. The major arterial flow voids of the skull base are preserved. Thinning of the ocular lenses. Mild left maxillary sinus mucosal thickening. Mastoid air cells are clear. MRA head: The internal carotid, middle cerebral, and anterior cerebral arteries are patent. Thla-rn-azbbiojn right and mild left cavernous internal carotid artery stenosis. Mild narrowing of the vertebral artery V4 segments. The basilar artery is widely patent. Moderate stenosis of the posterior cerebral artery proximal P2 segments. No intracranial aneurysm or high-flow vascular malformation. MRA neck: The innominate and subclavian arteries are patent. The common carotid arteries are widely patent. Atherosclerotic irregularity of the proximal cervical internal carotid arteries without hemodynamically significant luminal narrowing. The left vertebral artery is dominant. The vertebral artery origins and V1 segments are suboptimally evaluated. The vertebral arteries are otherwise widely patent. Impression: MRI brain: 1. 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 2. 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 3. Avke-bh-gxkbcety diffuse cerebral volume loss and chronic microvascular ischemic changes. MRA head/neck: 1. Intracranial atherosclerotic disease, including kexx-jq-udgoumdb right and mild left cavernous internal carotid artery stenosis as well as moderate stenosis of the posterior cerebral artery P2 segments. 2. Atherosclerotic irregularity of the proximal cervical internal carotid arteries without hemodynamically significant luminal narrowing. Dictated by Leobardo Tracey MD @ 05/16/2025 5:27:15 PM (Electronically Signed) Narrative 05/16/2025 5:26 PM CDT For Patients: As a result of the Cures Act, medical imaging exams and procedure reports are released immediately into your electronic medical record. You may view this report before your referring provider. If you have questions, please contact your health care provider. Indication: Evaluate cerebrovascular disease or ischemia. Technique: MRI brain: Multiplanar multisequence MR imaging of the brain prior to and following intravenous administration of 20 mL Clariscan. MRA head: Uwha-jg-fhmhie imaging. MRA neck: Yhlq-nb-buzbkl and postcontrast imaging following intravenous administration of 20 mL Clariscan. Comparison: None. Findings: MRI brain: Moderate area of diffusion restriction and FLAIR hyperintensity within the left middle cerebral artery territory with involvement of the left basal ganglia, lateral left frontal lobe, as well as the left insula/subinsular region, compatible with acute to early subacute infarction. There is mild local mass effect. Minimal susceptibility infarct bed may represent petechial hemorrhage. Additional punctate recent infarctions within the left precentral and postcentral gyri and left occipital lobe. Yogg-py-evwfovfg diffuse cerebral volume loss. No midline shift. Patchy FLAIR hyperintensities in the supratentorial white matter, typical for lgzj-ur-buqjfrsr chronic microvascular ischemic changes. 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 No pathologic intracranial enhancement. The major arterial flow voids of the skull base are preserved. Thinning of the ocular lenses. Mild left maxillary sinus mucosal thickening. Mastoid air cells are clear. MRA head: The internal carotid, middle cerebral, and anterior cerebral arteries are patent. Bqdk-ff-nvzzmeow right and mild left cavernous internal carotid artery stenosis. Mild narrowing of the vertebral artery V4 segments. The basilar artery is widely patent. Moderate stenosis of the posterior cerebral artery proximal P2 segments. No intracranial aneurysm or high-flow vascular malformation. MRA neck: The innominate and subclavian arteries are patent. The common carotid arteries are widely patent. Atherosclerotic irregularity of the proximal cervical internal carotid arteries without hemodynamically significant luminal narrowing. The left vertebral artery is dominant. The vertebral artery origins and V1 segments are suboptimally evaluated. The vertebral arteries are otherwise widely patent. Impression: MRI brain: 1. 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 2. 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 3. Voer-fx-xiaekqbq diffuse cerebral volume loss and chronic microvascular ischemic changes. MRA head/neck: 1. Intracranial atherosclerotic disease, including nzzl-ar-exfanfsb right and mild left cavernous internal carotid artery stenosis as well as moderate stenosis of the posterior cerebral artery P2 segments. 2. Atherosclerotic irregularity of the proximal cervical internal carotid arteries without hemodynamically significant luminal narrowing. Dictated by Leobardo Tracey MD @ 05/16/2025 5:26:50 PM (Electronically Signed) Procedure Note Leobardo Tracey MD - 05/16/2025 For Patients: As a result of the Cures Act, medical imagingexams and procedure reports are released immediately into your electronicmedical record. You may view this report before your referring provider.If you have questions, please contact your health care provider. Indication: Evaluate cerebrovascular disease or ischemia. Technique: MRI brain: Multiplanar multisequence MR imaging of the brain prior to andfollowing intravenous administration of 20 mL Clariscan. MRA head: Rqak-yw-sroqhy imaging. MRA neck: Zxgv-os-jjtugn and postcontrast imaging following intravenousadministration of 20 mL Clariscan. Comparison: None. Findings: MRI brain: Moderate area of diffusion restriction and FLAIR hyperintensity within theleft middle cerebral artery territory with involvement of the left basalganglia, lateral left frontal lobe, as well as the left insula/subinsularregion, compatible with acute to early subacute infarction. There is mildlocal mass effect. Minimal susceptibility infarct bed may representpetechial hemorrhage. Additional punctate recent infarctions within theleft precentral and postcentral gyri and left occipital lobe. Pnmm-zs-yjfxxalj diffuse cerebral volume loss. No midline shift. PatchyFLAIR hyperintensities in the supratentorial white matter, typical enelmiw-nv-bdtcuaae chronic microvascular ischemic changes. Chronicinfarctions in the right basal ganglia and cerebellar hemispheres. No pathologic intracranial enhancement. The major arterial flow voids of the skull base are preserved. Thinning ofthe ocular lenses. Mild left maxillary sinus mucosal thickening. Mastoidair cells are clear. MRA head: The internal carotid, middle cerebral, and anterior cerebral arteries arepatent. Atum-ek-dsupzjsk right and mild left cavernous internal carotidartery stenosis. Mild narrowing of the vertebral artery V4 segments. The basilar artery iswidely patent. Moderate stenosis of the posterior cerebral artery proximalP2 segments. No intracranial aneurysm or high-flow vascular malformation. MRA neck: The innominate and subclavian arteries are patent. The common carotid arteries are widely patent. Atherosclerotic irregularity of the proximal cervical internal carotidarteries without hemodynamically significant luminal narrowing. The left vertebral artery is dominant. The vertebral artery origins and O4faegipqo are suboptimally evaluated. The vertebral arteries are otherwisewidely patent. Impression: MRI brain: 1. Moderate acute to early subacute left middle cerebral artery territoryinfarction. 2. 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 3. Mrij-tb-czjqzhuk diffuse cerebral volume loss and chronic microvascularischemic changes. MRA head/neck: 1. Intracranial atherosclerotic disease, including qqmt-za-dahliewz rightand mild left cavernous internal carotid artery stenosis as well asmoderate stenosis of the posterior cerebral artery P2 segments. 2. Atherosclerotic irregularity of the proximal cervical internal carotidarteries without hemodynamically significant luminal narrowing. Dictated by Leobardo Tracey MD @ 05/16/2025 5:26:50 PM (Electronically Signed) us Clarita Pino MD MR Rosetta pichardo Result - Final * ECHO TTE COMPLETE W CONTRAST (05/16/2025 3:08 PM CDT) AORTIC VALVE MEAN PG 4 mmHg EJECTION FRACTION 69 % LVEDD 5.1 cm EJECTION FRACTION 65 - 70% PEAK TR VELOCITY 2.8 m/s Anatomical Region Laterality Modality Ultrasound 05/16/2025 2:24 PM CDT Narrative 05/16/2025 3:36 PM CDT ECHOCARDIOGRAM BECCA Ng [facility] : 1935 89 years Study Date: 05/16/2025 2:24:46 PM Gender: M BP: 136/63 mmHg Height: 177.00 cm BSA: 2.07 m Weight: 90.00 kg Tech: ROSA Allison MD: CLARITA PINO Site: [facility] Reading Location: [facility] Patient Location: Inpatient. Procedure: 2D w/ Contrast, Color Doppler and Spectral Doppler. Indication for study: Cerebral thrombosis, embolism, and artery occlusion Cardiac Rhythm: Regular and ventricular paced.Study quality: Fair. Final Impressions: 1. Normal left ventricular size, mildly increased wall thickness, normal global systolic function, calculated EF of 69 %. No LV thrombus. 2. Severely enlarged left atrium. 3. Right ventricular cavity size is normal, global systolic RV function is normal. Pacing leads noted. 4. The aortic valve is sclerotic, trileaflet and calcified, no stenosis and trivial regurgitation. 5. The inferior vena cava is dilated, respiratory size variation less than 50%. 6. Severe MAC present. 7. Echo contrast was administered to enhance visualization of all left ventricular segments. Chamber Sizes and Function Normal left ventricular size, mildly increased wall thickness, normal global systolic function, calculated EF of 69 %. No resting regional wall motion abnormality visualized. Left atrial size is severely enlarged. Right ventricular cavity size is normal, global systolic RV function is normal. Pacing wire/catheter visualized in the right ventricle and pacing wire/catheter visualized in the right atrium. The right atrium is moderately enlarged. Right atrial volume index is 39 ml/m . Right atrial area is 27 cm . The pulmonary artery is not well visualized. The sinus of Valsalva is normal sized. The ascending aorta is normal sized. Valves, RV Pressures and Diastolic Function The aortic valve is sclerotic, trileaflet and calcified, no stenosis and trivial regurgitation. The mitral valve is sclerotic, mild mitral regurgitation. Severe mitral annular calcification is present. Indeterminate pattern of LV diastolic filling. The tricuspid valve is normal in structure, mild tricuspid regurgitation. The tricuspid regurgitant velocity is 2.8 m/s, the estimated right ventricular systolic pressure is 31 mmHg plus right atrial pressure. There is borderline increased estimated pulmonary pressure by tricuspid regurgitation velocity and right atrial pressure. The pulmonic valve is not well visualized. Trace pulmonary regurgitation. Masses, Effusion, Shunts There is no pericardial effusion. The inferior vena cava is dilated, respiratory size variation less than 50%. No left to right shunting was detected by limited color flow Doppler interrogation of the interatrial septum. MEASUREMENTS AND CALCULATIONS 2-D Measurements and LV Function: LVID (d) 5.1 cm Planimetered EF 69 % LVID (s) 3.2 cm LV FS% (2D) 37 % IVS (d) 1.3 cm LVOT diameter 2.1 cm LVPW (d) 0.8 cm HR 60 bpm Ao Sinus 3.5 cm LA Vol index 51 ml/m2 Ao Sinus ULN 4.2 cm * RA Vol index 39 ml/m2 Asc Ao 3.7 cm RA area 27 cm Asc Ao ULN 4.4 cm * RV Basal Diam 3.9 cm * Input age outside of range, reported values RV Mid Diam 2.4 cm correspond to Age = 82 Diastology: Mitral E Peak 1.2 m/s DT 230 msec Aortic Valve: Vmax 1.4 m/s MARIA T (V) 2.48 cm VTI 0.31 m MARIA T (I) 2.28 cm LVOT V max 1.0 m/s Max PG 8 mmHg LVOT VTI 0.20 m Mean PG 4 mmHg SV 71 ml Dim Index 0.66 SV index 34 ml/m CO 4.2 l/min CI 2.0 l/min/m Mitral Valve: MVA 3.3 cm MV P 1/2 67 msec MV Mean G 2 mmHg Tricuspid Valve and estimated PA pressures: TR Vmax 2.8 m/s TAPSE 1.6 cm TR maxG 31 mmHg Contrast documentation: 2 ml diluted Definity, lot #[id number], [facility] [place]# [id number] was administered peripherally to enhance visualization of all left ventricular segments. . This study was interpreted by an [facility] accredited facility. Final Procedure Note Brooke Joshua MD - 05/16/2025 ECHOCARDIOGRAM BECCA Ng [facility] : 1935 89 years Study Date: 05/16/2025 2:24:46 PM Gender: M BP: 136/63 mmHg Height: 177.00 cm BSA: 2.07 m Weight: 90.00 kg Tech: ROSA Referring MD: CLARITA PINO Site: [facility] Reading Location: [facility] Patient Location: Inpatient. Procedure: 2D w/ Contrast, Color Doppler and Spectral Doppler. Indication for study: Cerebral thrombosis, embolism, and arteryocclusion Cardiac Rhythm: Regular and ventricular paced.Study quality: Fair. Final Impressions: 1. Normal left ventricular size, mildly increased wall thickness, normalglobal systolic function, calculated EF of 69 %. No LV thrombus. 2. Severely enlarged left atrium. 3. Right ventricular cavity size is normal, global systolic RV functionis normal. Pacing leads noted. 4. The aortic valve is sclerotic, trileaflet and calcified, no stenosisand trivial regurgitation. 5. The inferior vena cava is dilated, respiratory size variation lessthan 50%. 6. Severe MAC present. 7. Echo contrast was administered to enhance visualization of all leftventricular segments. Chamber Sizes and Function Normal left ventricular size, mildly increased wall thickness, normalglobal systolic function, calculated EF of 69 %. No resting regional wallmotion abnormality visualized. Left atrial size is severely enlarged.Right ventricular cavity size is normal, global systolic RV function isnormal. Pacing wire/catheter visualized in the right ventricle and pacingwire/catheter visualized in the right atrium. The right atrium ismoderately enlarged. Right atrial volume index is 39 ml/m . Right atrialarea is 27 cm . The pulmonary artery is not well visualized. The sinus ofValsalva is normal sized. The ascending aorta is normal sized. Valves, RV Pressures and Diastolic Function The aortic valve is sclerotic, trileaflet and calcified, no stenosis andtrivial regurgitation. The mitral valve is sclerotic, mild mitralregurgitation. Severe mitral annular calcification is present.Indeterminate pattern of LV diastolic filling. The tricuspid valve isnormal in structure, mild tricuspid regurgitation. The tricuspidregurgitant velocity is 2.8 m/s, the estimated right ventricular systolicpressure is 31 mmHg plus right atrial pressure. There is borderlineincreased estimated pulmonary pressure by tricuspid regurgitation velocityand right atrial pressure. The pulmonic valve is not well visualized.Trace pulmonary regurgitation. Masses, Effusion, Shunts There is no pericardial effusion. The inferior vena cava is dilated,respiratory size variation less than 50%. No left to right shunting wasdetected by limited color flow Doppler interrogation of the interatrialseptum. MEASUREMENTS AND CALCULATIONS 2-D Measurements and LV Function: LVID (d) 5.1 cm Planimetered EF 69% LVID (s) 3.2 cm LV FS% (2D) 37% IVS (d) 1.3 cm LVOT diameter2.1 cm LVPW (d) 0.8 cm HR 60bpm Ao Sinus 3.5 cm LA Vol index 51ml/m2 Ao Sinus ULN 4.2 cm * RA Vol index 39ml/m2 Asc Ao 3.7 cm RA area 27cm Asc Ao ULN 4.4 cm * RV Basal Diam3.9 cm * Input age outside of range, reported values RV Mid Diam2.4 cm correspond to Age = 82 Diastology: Mitral E Peak 1.2 m/s DT 230 msec Aortic Valve: Vmax 1.4 m/s MARIA T (V) 2.48 cm VTI 0.31 m MARIA T (I) 2.28 cm LVOT V max 1.0 m/s Max PG 8 mmHg LVOT VTI 0.20 m Mean PG 4 mmHg SV 71 ml Dim Index 0.66 SV index 34 ml/m CO 4.2 l/min CI 2.0 l/min/m Mitral Valve: MVA 3.3 cm MV P 1/2 67 msec MV Mean G 2 mmHg Tricuspid Valve and estimated PA pressures: TR Vmax 2.8 m/s TAPSE 1.6 cm TR maxG 31 mmHg Contrast documentation: 2 ml diluted Definity, lot #[id number], [facility] [place]#[id number] was administered peripherally to enhance visualization of allleft ventricular segments. . This study was interpreted by an [facility] accredited facility. Final us Clarita Pino MD ECHO ORD F inal Result * XR SHOULDER 2 VIEWS RIGHT PORTABLE (05/16/2025 11:01 AM CDT) Anatomical Region Laterality Modality SHOULDERS, SHOULDER R Digital Ra diography 05/16/2025 1:57 PM CDT Impressions 05/16/2025 1:57 PM CDT 1. Soft tissue swelling. 2. No acute bony abnormality. 3. Moderate glenohumeral joint osteoarthritis. Dictated by Nash Brunner MD @ May 16 2025 1:57PM (Electronically Signed) [email or web address] Narrative 05/16/2025 1:57 PM CDT For Patients: As a result of the s Act, medical imaging exams and procedure reports are released immediately into your electronic medical record. You may view this report before your referring provider. If you have questions, please contact your health care provider. INDICATION: Right shoulder injury. Swelling. TECHNIQUE: Two views of the right shoulder. COMPARISON: Today`s right humerus x-rays FINDINGS: Soft tissue swelling. No fracture or dislocation. Moderate glenohumeral joint osteoarthritis. Procedure Note Nash Brunner MD - 05/16/2025 For Patients: As a result of the s , medical imagingexams and procedure reports are released immediately into your electronicmedical record. You may view this report before your referring provider.If you have questions, please contact your health care provider. INDICATION: Right shoulder injury. Swelling. TECHNIQUE: Two views of the right shoulder. COMPARISON: Today`s right humerus x-rays FINDINGS: Soft tissue swelling. No fracture or dislocation. Moderate glenohumeraljoint osteoarthritis. IMPRESSION: 1. Soft tissue swelling. 2. No acute bony abnormality. 3. Moderate glenohumeral joint osteoarthritis. Dictated by Nash Brunner MD @ May 16 2025 1:57PM (Electronically Signed) [email or web address] Roseanne Rosio Parson [employer] Final Res ult * XR HUMERUS MIN 2 VIEWS RIGHT PORTABLE (05/16/2025 11:01 AM CDT) Anatomical Region Laterality Modality HUMERI, HUMERUS R Digital Radiog ángela 05/16/2025 1:55 PM CDT Impressions 05/16/2025 1:55 PM CDT 1. Soft tissue swelling. 2. Negative right humerus. Dictated by Nash Brunner MD @ May 16 2025 1:55PM (Electronically Signed) [email or web address] Narrative 05/16/2025 1:55 PM CDT For Patients: As a result of the s Act, medical imaging exams and procedure reports are released immediately into your electronic medical record. You may view this report before your referring provider. If you have questions, please contact your health care provider. INDICATION: Right arm injury. Pain and swelling. TECHNIQUE: AP and lateral views of the right humerus, 3 images COMPARISON: None FINDINGS: Soft tissue swelling. No fracture or other abnormality. Procedure Note Nash Brunner MD - 05/16/2025 For Patients: As a result of the Cures Act, medical imagingexams and procedure reports are released immediately into your electronicmedical record. You may view this report before your referring provider.If you have questions, please contact your health care provider. INDICATION: Right arm injury. Pain and swelling. TECHNIQUE: AP and lateral views of the right humerus, 3 images COMPARISON: None FINDINGS: Soft tissue swelling. No fracture or other abnormality. IMPRESSION: 1. Soft tissue swelling. 2. Negative right humerus. Dictated by Nash Brunner MD @ May 16 2025 1:55PM (Electronically Signed) [email or web address] Roseanne Parson [employer] Final Res ult * (ABNORMAL) CBC WITH AUTO DIFFERENTIAL (05/16/2025 7:42 AM CDT) WHITE BLOOD COUNT 7.7 4.5 - 11.0 thou/cu mm 05/16/2025 8:10 AM CDT [facility] RED BLOOD COUNT 2.93(L) 4.30 - 5.90 mil/cu mm 05/16/2025 8:10 AM CDT [facility] HEMOGLOBIN 8.8(L) 13.5 - 17.5 g/dL 05/16/2025 8:10 AM CDT [facility] HEMATOCRIT 26.8(L) 37.0 - 53.0 % 05/16/2025 8:10 AM CDT [facility] MCV 92 80 - 100 fL 05/16/2025 8:10 AM CDT [facility] MCH 30.0 26.0 - 34.0 pg 05/16/2025 8:10 AM [facility] MCHC 32.8 32.0 - 36.0 g/dL 05/16/2025 8:10 AM [facility] RDW 15.3 11.5 - 15.5 % 05/16/2025 8:10 AM [facility] PLATELET COUNT 169 140 - 440 thou/cu mm 05/16/2025 8:10 AM [facility] MPV 10.8 6.5 - 11.0 fL 05/16/2025 8:10 AM [facility] NRBC 0.0 % 05/16/2025 8:10 AM [facility] ABS NRBC 0.0 thou /cu mm 05/16/2025 8:10 AM [facility] % NEUT 90.1 % 05/16/2025 8:10 AM [facility] % LYMPH 3.5 % 05/16/2025 8:10 AM [facility] % MONO 5.4 % 05/16/2025 8:10 AM [facility] % EOS 0.0 % 05/16/2025 8:10 AM [facility] % BASO 0.5 % 05/16/2025 8:10 AM [facility] % IMMATURE GRAN (METAS,MYELOS,AK OS) 0.5 % 05/16/2025 8:10 AM [facility] ABSOLUTE NEUTROPHILS 6.9 1.7 - 7.0 thou/cu mm 05/16/2025 8:10 AM [facility] ABSOLUTE LYMPHOCYTES 0.3(L) 0.9 - 2.9 thou/cu mm 05/16/2025 8:10 AM [facility] ABSOLUTE MONOCYTES 0.4 <0.9 thou/cu mm 05/16/2025 8:10 AM [facility] ABSOLUTE EOSINOPHILS 0.0 <0.5 thou/cu mm 05/16/2025 8:10 AM CDT [facility] ABSOLUTE BASOPHILS 0.0 <0.3 thou/cu mm 05/16/2025 8:10 AM CDT [facility] ABSOLUTE IMMATURE GRANULOCYTES(MET ,MYELOS,PROS) 0.0 <0.3 thou/cu mm 05/16/2025 8:10 AM CDT [facility] Blood BLOOD SPECIMEN / Unknown Non-Lab Venipuncture / Unknown 05/16/2025 7:42 AM CDT 05/16/2025 7:49 AM CDT Clarita Pino MD HEMATOLOGY F inal Result Performing Organization Address [facility] Co de Phone Number [facility] [address] [place] [phone], [place] * (ABNORMAL) Hemoglobin A1C Screening (05/16/2025 7:42 AM CDT) [facility] HEMOGLOBIN A1C SCREENING 7.5(H) <=6.4 % 05/16/2025 4:09 PM CDT [facility] Blood BLOOD SPECIMEN / Unknown Non-Lab Venipuncture / Unknown 05/16/2025 7:42 AM CDT 05/16/2025 7:49 AM CDT Narrative [facility] - 05/16/2025 4:09 PM CDT (<5.7%) Normal (5.7% to 6.4%) Indicates prediabetes (>=6.5%) Confirms diabetes Falsely low levels may be seen with: Recent Transfusion, Recent Significant Blood Loss, Hemolytic Diseases, or Falsely elevated levels may be seen with: Untreated Anemias, Splenectomy us Clarita Pino MD CHEMISTRY F inal Result Performing Organization Address [facility] Co de Phone Number [facility] [address] [place] [phone], [place] * aPTT (05/16/2025 7:42 AM CDT) APTT 28 25 - 36 sec 05/16/2025 8:08 AM CDT [facility] Blood BLOOD SPECIMEN / Unknown Non-Lab Venipuncture / Unknown 05/16/2025 7:42 AM CDT 05/16/2025 7:49 AM CDT Narrative [facility] - 05/16/2025 8:08 AM CDT Therapeutic Range: 59-89 seconds Clarita Pino MD HEMATOLOGY F inal Result Performing Organization Address [facility] Co de Phone Number [facility] [address] [address], * (ABNORMAL) Protime - INR (05/16/2025 7:42 AM CDT) INR 1.1 <1.3 05/16/2025 8:08 AM CDT [facility] PROTIME 13.0(H) 10.6 - 12.4 sec 05/16/2025 8:08 AM CDT [facility] Blood BLOOD SPECIMEN / Unknown Non-Lab Venipuncture / Unknown 05/16/2025 7:42 AM CDT 05/16/2025 7:49 AM CDT Narrative [facility] - 05/16/2025 8:08 AM CDT Therapeutic Range 2.0-3.0 for most anticoagulated patients 2.5-3.5 or 4.0 for high risk patients The INR is only used for patients on stable oral anticoagulant therapy. It makes no significant contribution to the diagnosis or treatment of patients whose Protime is prolonged for other reasons. INR results are increased when heparin levels exceed 1.0 U/mL, which corresponds to an aPTT >125 seconds if the patient is on UFH. us Clarita Pino MD HEMATOLOGY F inal Result Performing Organization Address City/[facility] Co de Phone Number [facility] [address] [place] [address], [place] * Lipid Panel (05/16/2025 7:42 AM CDT) CHOLESTEROL,TOTAL 104 100 - 199 mg/dL 05/16/2025 8:36 AM CDT [facility] Comment: Cholesterol, Total Reference Ranges Desirable <200 mg/dL Borderline 200-239 mg/dL High >=240 mg/dL TRIGLYCERIDES 49 <150 mg/dL 05/16/2025 8:36 AM CDT [facility] HDL CHOLESTEROL 51 >40 mg/dL 8:36 AM CDT [facility] NON-HDL CHOLESTEROL 53 <145 mg/dl 05/16/2025 8:36 AM CDT [facility] CHOL/HDL RATIO 2.04 <4.50 05/16/2025 8:36 AM CDT [facility] LDL CHOLESTEROL 43 <=130 mg/dL 05/16/2025 8:36 AM CDT [facility] VLDL CHOLESTEROL 10 <=30 mg/dL 05/16/2025 8:36 AM CDT [facility] PROVIDER ORDERED STATUS RANDOM 05/16/2025 8:36 AM CDT [facility] Blood BLOOD SPECIMEN / Unknown Non-Lab Venipuncture / Unknown 05/16/2025 7:42 AM CDT 05/16/2025 7:49 AM CDT us Clarita Pino MD CHEMISTRY F inal Result [facility] [address] [place] [address], [place] * IR ANGIO NEURO-INTERVENTIONAL (05/15/2025 9:55 PM CDT) Anatomical Region Laterality Modality X-Ray Angiograph y Narrative 05/15/2025 10:05 PM CDT Neurointerventional Procedure Report Patient: Becca Ng brooke (1935), Date: 05/15/2025 Physician(s): Juan Larose MD Procedure(s): Cerebral angiography: Selective catheter placement, left internal carotid artery, with angiography of the intracranial carotid circulation (CPT 64359) Ultrasound guidance for vascular access: right common femoral artery access (CPT +19556) Pre-operative diagnosis (indication): Acute left M1 occlusion Post-operative diagnosis: Same, see Impression Anesthesia: Lidocaine 1% local Consent: Emergency consent; family unavailable Time-out: Performed according to [place] Protocol. Description: The patient was placed in the supine position on the angiography table. The arterial access site was sterilely prepped and draped. Lidocaine 1% was used for local anesthesia. Ultrasound evaluation of potential access site was performed. After successfully identifying a patent vessel, ultrasound guidance was used to puncture the right common femoral artery with a micropuncture set, and an 8F sheath was inserted. A permanent recording was created for the patient record. A 90 cm Neuron Max catheter was advanced over an 035 glidewire into the following vessels: Selective catheter placement, left internal carotid artery, with angiography of the intracranial carotid circulation The catheter and sheath were removed. Hemostasis was achieved using an 8F AngioSeal device. Complications: None Findings: Left internal carotid artery selective injection: There is normal opacification of the intracranial left carotid circulation. 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 Specimens: None Estimated blood loss: 5 mL Medications: Visipaque-320 40 mL IA Fluoroscopy time: 9:20, 231 mGy Impression: Left M1 thromboembolus lysed with TNK; no thrombectomy needed Juan Larose MD Neurointerventional Radiology Juan Larose MD IR Final Result from Last 3 Months Insurance MEDICARE PART A HB ONLY MEDICARE PART B HB ONLY BLUE CROSS [employer] BLUE MR PB ONLY BLUE CROSS [employer] BLUE HB ONLY Advance Directives * Full Code (Latest Code Status on File) Date Activated Date Inactivated Comments 05/15/2025 10:42 PM Question Answer Comments Code Status Discussion: Reviewed Preferences * Full Code Date Activated Date Inactivated Comments 11/15/2019 5:58 PM 11/21/2019 1:25 PM Question Answer Comments Code Status Discussion: Not Discussed * Full Code Date Activated Date Inactivated Comments 06/03/2019 3:33 PM 06/04/2019 7:18 PM Question Answer Comments Code Status Discussion: Not Discussed Care Teams Object Oriented Programmer Relationship Specialty Start Date End Date Juve Wade MD [address] [place] [phone] [facility] - General 04/03/10
== END 2025-05-15 18:33 | disposition home or self-care (01) ==
PROVIDERS: Visit Provider Family Medicine
DX: R41.82 Altered mental status, unspecified (principal); R29.810 Facial weakness; R53.1 Weakness
CPT/HCPCS: A0425; A0427

== ENCOUNTER 2025-05-15 18:59 | Emergency (ER) | payer MEDICARE, BC, SELFPAY ==
--- OUTSIDE RECORDS SUMMARY | 2013-03-10 07:01 | XMS_ITS | Continuity of Care Document ---
Author Organization [facility] Kamilla Conradt h PA Address [address] [address] [place] [address] Phone Care Team Providers Care Regional Rehabilitation Director Name Role Phone Alonzo Ramirez MD Unavailable Unavailable Procedures Procedure Date Colonoscopy Flex; W/bx 1/mx Colonoscopy Flex; W/remov Les- 13 Ugi Endo; Dx W/wo Collec Specm 07 Advance Directives Directive Yes / No Effective Date File Name No Information Encounters Encounter Description Practice Location Reason(s) For Visit Diagnoses Date Provider Providers Copied on Encounter [facility], [address] [address], [place], [place], [address], tel:[phone] [facility] [place] No Information James Rosado. [address] [place] [address], [address], [id number], [place]. tel:[phone] [facility], [address] [address], [place], [place], [address], [place] tel:[phone] [facility] No Information James Rosado. [address] [facility], [facility] [address], [place], [place], [id number], [place]. tel:[phone] Referring Provider: Juve Lewis, [facility] [address] [place], [address]. tel:[phone] [facility], [address] [address], [place], [place], [address], tel:[phone] [facility] No Information James Rosado. [address] [facility], [address], [place], [place], [id number], [place]. tel:[phone] Referring Provider: Juve Lewis, [address] [facility], [place], [address]. tel:[phone] Family History Family Member Type Diagnosis Age At Onset No Information Payers Payer name Insurance type Covered constitution party ID Authoriza tion(s) Medicare NGS MB [id number] [facility] [id number] Social History Type Description Quantity Date Captured [...]
--- NOTE | 2025-05-15 | CRLHL7_ITS ---
For Patients: As a result of the Century Cures Act, medical imaging exams and procedure reports are released immediately into your electronic medical record. You may view this report before your referring provider. If you have questions, please contact your health care provider. INDICATION: Acute neurological deficit. COMPARISON: None available. TECHNIQUE: CTA neck with contrast bolus tracking, 3D angiographic rendering using maximum intensity projection (MIP) and images permanently archived. FINDINGS: The origins of the great vessels are patent. There is carotid atherosclerosis bilaterally. There is atherosclerotic plaque in the proximal right ICA resulting in a moderate (approximately 50-60%) stenosis by NASCET criteria. There is atherosclerotic plaque in the proximal left ICA resulting in a mild (<50%) stenosis by NASCET criteria. The vertebral arteries are patent throughout. Moderate size left-sided pleural effusion. IMPRESSION: 1. Moderate (approximately 50-60%) stenosis of the proximal right ICA by NASCET criteria. 2. Mild (<50%) stenosis of the proximal left ICA by NASCET criteria. Please note that all CT scans at this facility use dose modulation, iterative reconstruction, and/or weight-based dosing when appropriate to reduce radiation dose to as low as reasonably achievable. Dictated by Tello Reddy MD @ 05/16/2025 12:09:51 PM (Electronically Signed)
--- NOTE | 2025-05-15 18:59 | CRLHL7_ITS ---
For Patients: As a result of the Century Cures Act, medical imaging exams and procedure reports are released immediately into your electronic medical record. You may view this report before your referring provider. If you have questions, please contact your health care provider. INDICATION: Right sided numbness. Stroke code. TECHNIQUE: CT of the head without contrast. Coronal and sagittal reformats. Bone and soft tissue algorithms. COMPARISON: No prior studies available for comparison at this institution. FINDINGS: No acute intracranial hemorrhage or extra-axial collection. There is a wedge shaped 1.9 cm region of hypoattenuation in the right superior cerebellum suggestive of chronic infarct. Small chronic infarcts in the left cerebellum. Chronic lacunar infarct in the left basal ganglia. No mass effect or midline shift. Mild to moderate generalized parenchymal volume loss. Multiple regions of decreased attenuation within the periventricular and subcortical white matter of both cerebral hemispheres most likely reflect chronic microvascular ischemic disease and age related change in this patient. Vascular calcifications within the carotid siphons. Orbital contents are normal. No calvarial fractures. No lytic or sclerotic osseous lesions within the calvarium or skull base. Scalp and other imaged soft tissue structures are normal. Mastoid air cells are clear. Mild mucosal thickening in the left maxillary sinus. Findings discussed with stroke neurologist by phone at 7:21 p.m. 05/15/2025 IMPRESSION: 1. No acute intracranial abnormality. 2. 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 Chronic lacunar infarct in the left basal ganglia. 3. Mild to moderate parenchymal volume loss and chronic small-vessel ischemic changes. Please note that all CT scans at this facility use dose modulation, iterative reconstruction, and/or weight-based dosing when appropriate to reduce radiation dose to as low as reasonably achievable. Dictated by lAonzo Cox MD @ 05/15/2025 7:22:17 PM (Electronically Signed)
[2025-05-15 19:00] VITALS: BP 123/70; PULSE 91; RESP 17; TEMP 36.6; O2SAT 98; BMI 33.1
--- NOTE | 2025-05-15 19:02 | ED.NEUROSD ---
HPI - Neuro Symptoms/Deficit General Chief Complaint: Neuro Symptoms/Altered Deficit Stated Complaint: Stroke Time Seen by Provider: 05/15/25 18:59 History of Present Illness HPI Narrative: This 89-year-old male comes in by ambulance and a stroke code was initiated prior to arrival because of onset of right-sided weakness and altered speech. These symptoms began about an hour prior to arrival. I met him in the hallway any went directly to CT scan. Initially I noted that he did have drooping right side of his face. His speech was understandable but a bit altered with the right sided facial weakness. Ambulance personnel stated that he does have a pacemaker. They were uncertain of what medicines he is on. Apparently he was prescribed Eliquis but discontinued taking this medicine because of its cost. Related Data Home Medications ?Medication ?Instructions ?Recorded ?Confirmed amlodipine 10 mg PO DAILY 05/15/25 05/15/25 glipizide 10 mg PO DAILY 05/15/25 05/15/25 insulin glargine subcut 05/15/25 losartan 25 mg tablet (Cozaar) 25 mg PO DAILY 05/15/25 05/15/25 metformin 1,000 mg PO BID 05/15/25 05/15/25 rosuvastatin 20 mg tablet (Crestor) 20 mg PO DAILY 05/15/25 05/15/25 Allergies Allergy/AdvReac Type Severity Reaction Status Date / Time No Known Drug Allergies Allergy Verified 05/15/25 19:15 Review of Systems Status of ROS: Reports: 10 or more systems reviewed and unremarkable except as noted in History and below Narrative: Constitutional: No fevers, no weight gain or loss. He does not report a headache. Eyes: No discharge. No vision changes. HENT: No congestion, no sore throat, no ear pain. Cardiovascular: No chest pain, no palpitations. Respiratory: No shortness of breath, no wheezes, no cough. Gastrointestinal: No abdominal pain, no vomiting, no diarrhea. Genitourinary: No dysuria, no hematuria. Musculoskeletal: Normal range of motion. Skin: No rashes, no pruritis. Neurological: Right-sided hemiparesis with some altered speech. Endo/Heme/Allergies: No bruising or bleeding. No polydipsia. Pysch: no suicidality, no anxiety, no insomnia. All other systems reviewed and are negative. PFSH PFSH Social History Smoking Status: Unknown if ever smoked Exam Narrative: Exam Narrative: Constitutional: Well-developed, well-nourished, no acute distress. HEENT: Normocephalic, atraumatic. Neck: Normal range of motion. Nontender. Supple. Heart: Regular. No murmurs. Normal rate. Intact distal pulses. Lungs: Clear to auscultation. No chest discomfort. No wheezes, rhonchi, or rales. Abdomen: Normal bowel sounds. Nontender. No rebound tenderness. Genitalia: Deferred. Back: No midline tenderness. Normal range of motion. Extremities: Normal range of motion. No injury. Skin: Intact. No rash. Warm. No erythema or pallor. Neurologic: Right facial droop. Right upper and lower extremity hemiparesis. Nursing notes and vitals signs are reviewed. Const: Vital Signs, click to edit/add: Vital Signs - 24 hr 05/15/25 19:00 05/15/25 19:20 Temperature 97.8 F Pulse Rate [Pulse Oximeter] 91 Respiratory Rate 17 Blood Pressure [Le ft Upper Arm] 123/70 Pulse Oximetry 98 98 Oxygen Delivery Me thod Nasal Cannula Oxygen Flow Rate 4 Course Vital Signs Vital signs: Initial Vital Signs Temperature 97.8 F 05/15/25 19:00 Temperature Source Temporal Artery Scan 05/15/25 19:00 Pulse Rate 91 05/15/25 19:00 Respiratory Rate 17 05/15/25 19:00 Blood Pressure 123/70 05/15/25 19:00 Blood Pressure Mean 87 05/15/25 19:00 Blood Pressure Position Supine 05/15/25 19:00 Pulse Oximetry 98 05/15/25 19:00 Oxygen Delivery Method Nasal Cannula 05/15/25 19:00 Oxygen Flow Rate 4 05/15/25 19:00 Vital Signs Temperature 97.8 F 05/15/25 19:00 Pulse Rate 91 05/15/25 19:00 Respiratory Rate 17 05/15/25 19:00 Blood Pressure 123/70 05/15/25 19:00 Pulse Oximetry 98 05/15/25 19:00 Oxygen Delivery Method Nasal Cannula 05/15/25 19:00 Oxygen Flow Rate 4 05/15/25 19:00 Temperature 97.8 F 05/15/25 19:00 Pulse Rate 91 05/15/25 19:00 Respiratory Rate 17 05/15/25 19:00 Blood Pressure 123/70 05/15/25 19:00 Pulse Oximetry 98 05/15/25 19:20 Oxygen Delivery Method Nasal Cannula 05/15/25 19:00 Oxygen Flow Rate 4 05/15/25 19:00 Medications Administered Medications: Generic Name Dose Route Start Last Admin Trade Name Benny PRN Reason Stop Dose Admin Tenecteplase 25 mg 05/15/25 19:41 05/15/25 19:45 Tenecteplase 5 Mg/Ml Inj 0.25 mg/kg (25 mg) 05/15/25 19:42 25 mg IVP Administration ONCE ONE MDM - Neuro Symptoms/Deficit MDM Narrative Medical decision making narrative: This patient comes in with obvious signs of a cerebrovascular accident with right-sided facial droop and weakness in the right upper and lower extremity. He went directly to CT scan and a stroke code was initiated with discussion we the neurologist on-call, Dr. Faye, who interviewed the patient by tele stroke. 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 He will need to be transferred for Interventional Radiology. After informed consent was acquired the patient did received an active plays and arrangements are made for transfer to the emergency department at [facility]. Dr. Faye is the accepting physician. Lab Data Labs: Lab Results 05/15/25 05/15/25 Range/Units 19:00 19:08 WBC 6.13 (4.50-11.00) K/uL RBC 3.64 L (4.30-5.90) m/uL Hgb 10.9 L (13.5-17.5) gm/dL Hct 33.5 L (37.0-53.0) % MCV 92 (80-100) fL MCH 30 (26-34) pg MCHC 33 (32-36) gm/dL RDW Coeff of Margo 15.3 (11.5-15.5) % Plt Count 199 (140-440) K/uL Neut % (Auto) 79.7 H (42.0-72.0) % Lymph % (Auto) 10.3 L (20-44) % Hartley % (Auto) 7.3 (0.0-11.0) % Eos % (Auto) 2.0 (0.0-7.0) % Baso % (Auto) 0.5 (0.0-3.0) % Neut # (Auto) 4.90 (1.7-7.0) K/uL Lymph # (Auto) 0.60 L (0.90-2.90) K/uL Hartley # (Auto) 0.40 (0.00-0.90) K/UL Eos # (Auto) 0.12 (0.00-0.50) K/uL Baso # (Auto) 0.03 (0.00-0.30) K/uL Abs Immat Gran (auto) 0.01 (0.00-0.30) K/uL Imm/Tot Granulo (auto) 0.2 % Sodium 140 (135-149) mmol/L Potassium 4.6 (3.6-5.1) mmol/L Chloride 104 (96-114) mmol/L Carbon Dioxide 26 (20-32) mmol/L Anion Gap 10 (7-15) mEq/L BUN 27 (7-30) mg/dL Creatinine 1.3 (0.5-1.5) mg/dL Estimated Creat Clear 38.73 Estimated GFR 53 ml/min Glucose 142 H (60-115) mg/dL Calcium 9.6 (8.4-10.6) mg/dL POC Troponin I 0.03 (0.01-0.04) ng/ml Imaging Data CT scan - head: Radiologist's impression: FINDINGS: No acute intracranial hemorrhage or extra-axial collection. There is a wedge shaped 1.9 cm region of hypoattenuation in the right superior cerebellum suggestive of chronic infarct. Small chronic infarcts in the left cerebellum. Chronic lacunar infarct in the left basal ganglia. No mass effect or midline shift. Mild to moderate generalized parenchymal volume loss. Multiple regions of decreased attenuation within the periventricular and subcortical white matter of both cerebral hemispheres most likely reflect chronic microvascular ischemic disease and age related change in this patient. Vascular calcifications within the carotid siphons. Orbital contents are normal. No calvarial fractures. No lytic or sclerotic osseous lesions within the calvarium or skull base. Scalp and other imaged soft tissue structures are normal. Mastoid air cells are clear. Mild mucosal thickening in the left maxillary sinus. Findings discussed with stroke neurologist by phone at 7:21 p.m. 05/15/2025 IMPRESSION: 1. No acute intracranial abnormality. 2. 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 Chronic lacunar infarct in the left basal ganglia. 3. Mild to moderate parenchymal volume loss and chronic small-vessel ischemic changes. ECG Data Attestation: I personally reviewed and interpreted this ECG as follows: Interpretation: Ventricular paced rhythm. Rate is 65 beats per minute. There are no specific ST or T-wave abnormalities. Discharge Plan Discharge Clinical Impression: Cerebrovascular accident Patient Disposition: [facility] Condition: Unchanged Prescriptions: No Action glipizide 10 mg PO DAILY metformin 1,000 mg PO BID amlodipine 10 mg PO DAILY insulin glargine subcut rosuvastatin [Crestor] 20 mg tablet 20 mg PO DAILY losartan [Cozaar] 25 mg tablet 25 mg PO DAILY Stand Alone Forms: [employer] Info Instructions
[2025-05-15 19:05] VITALS: BP 150/84; PULSE 73; RESP 16; O2SAT 96
--- NOTE | 2025-05-15 19:06 | CRLHL7_ITS ---
For Patients: As a result of the Century Cures Act, medical imaging exams and procedure reports are released immediately into your electronic medical record. You may view this report before your referring provider. If you have questions, please contact your health care provider. CLINICAL HISTORY: Acute neurological deficit. TECHNIQUE: Standard helical CT image acquisition through the head following the administration of intravenous contrast was performed. 3D and MIP reconstructions were performed at a separate workstation and permanently archived. COMPARISON: None available. 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 No evidence of cerebral aneurysm. No findings to suggest an arterial-venous shunting lesion. IMPRESSION: 1. 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 2. Intracranial atherosclerotic disease, as above. Please note that all CT scans at this facility use dose modulation, iterative reconstruction, and/or weight-based dosing when appropriate to reduce radiation dose to as low as reasonably achievable. Dictated by Tello Reddy MD @ 05/16/2025 12:30:35 PM (Electronically Signed)
[2025-05-15 19:17] LABS: Basophils Absolute Auto 0.03 K/uL (0.00-0.30); Basophils Percent Auto 0.5 % (0.0-3.0); Eosinophils Absolute Auto 0.12 K/uL (0.00-0.50); Hematocrit 33.5 % (37.0-53.0); Hemoglobin* 10.9 gm/dL (13.5-17.5); Immature Granulocytes Abs Auto 0.01 K/uL (0.00-0.30); Immature Granulocytes Pct Auto 0.2 %; Lymphocytes Percent Auto 10.3 % (20-44); Mean Corpuscular HGB Conc 33 gm/dL (32-36); Mean Corpuscular Hemoglobin 30 pg (26-34); Mean Corpuscular Volume 92 fL (80-100); Monocytes Percent Auto 7.3 % (0.0-11.0); Neutrophils Percent Auto 79.7 % (42.0-72.0); Platelet Count* 199 K/uL (140-440); RDW Coefficient of Variation % 15.3 % (11.5-15.5); Red Blood Count 3.64 m/uL (4.30-5.90); White Blood Count* 6.13 K/uL (4.50-11.00)
[2025-05-15 19:20] VITALS: BP 165/74; PULSE 64; RESP 16; O2SAT 91; O2SAT 98
[2025-05-15 19:23] LABS: Troponin, Point-of-Care* 0.03 ng/ml (0.01-0.04)
[2025-05-15 19:26] LABS: Slide Review Reflex No
[2025-05-15 19:43] LABS: Chloride* 104 mmol/L (96-114)
[2025-05-15 19:44] LABS: Potassium* 4.6 mmol/L (3.6-5.1); Sodium* 140 mmol/L (135-149)
[2025-05-15] MEDS: TENECTEPLASE 5 MG/ML inj 25 MG IVP (19:45)
[2025-05-15 19:47] VITALS: BP 151/66; PULSE 75; RESP 17; O2SAT 96
[2025-05-15 19:47] LABS: Anion Gap 10 mEq/L (7-15); Blood Urea Nitrogen* 27 mg/dL (7-30); Calcium* 9.6 mg/dL (8.4-10.6); Carbon Dioxide* 26 mmol/L (20-32); Creatinine* 1.3 mg/dL (0.5-1.5); Est. Creatinine Clearance* 38.73; Estimated Glomerular Filt Rate 53 ml/min; Glucose* 142 mg/dL (60-115)
[2025-05-15 20:02] VITALS: BP 146/67; PULSE 61; RESP 22; O2SAT 91
[2025-05-15 20:40] VITALS: BP 123/70; PULSE 91; RESP 22; TEMP 36.6
== END 2025-05-15 20:41 | disposition short-term general hospital (02) ==
PROVIDERS: Emergency Provider Emergency Medicine Emergency Medical Services
DX: I63.9 Cerebral infarction, unspecified (principal)
CPT/HCPCS: 36415; 70450; 70496; 70498; 80048; 84484; 85025; 93005; 94761; 96374; 99285; 99291; J3101; Q9967

== ENCOUNTER 2025-05-15 20:20 | Outpatient (CLI) | payer MEDICARE, BC, SELFPAY | END 2025-05-15 20:21 | disposition home or self-care (01) | LOC: AMB 05-17 09:56 | PROVIDERS: Visit Provider Emergency Medicine Emergency Medical Services | DX: I63.9 Cerebral infarction, unspecified (principal) | CPT/HCPCS: A0425; A0427 ==

== ENCOUNTER 2025-06-09 19:31 | Outpatient (CLI) | payer MEDICARE, BC, SELFPAY | END 2025-06-09 19:32 | disposition home or self-care (01) | PROVIDERS: Visit Provider Family Medicine | DX: R41.82 Altered mental status, unspecified (principal); R53.1 Weakness | CPT/HCPCS: A0425; A0427 ==

== ENCOUNTER 2025-06-09 19:58 | Inpatient (IN) | payer MEDICARE, BC, SELFPAY ==
--- OUTSIDE RECORDS SUMMARY | 2013-03-10 07:01 | XMS_ITS | Continuity of Care Document ---
Author Organization [facility] Kamilla Conradt h PA Address [address] [address] [place] [address] Phone Care Team Providers Care Aoc Aadc Operations Staff Officer Name Role Phone Alonzo Ramirez MD Unavailable Unavailable Procedures Procedure Date Colonoscopy Flex; W/bx 1/mx Colonoscopy Flex; W/remov Les- 13 Ugi Endo; Dx W/wo Collec Specm 07 Advance Directives Directive Yes / No Effective Date File Name No Information Encounters Encounter Description Practice Location Reason(s) For Visit Diagnoses Date Provider Providers Copied on Encounter [facility], [address] [address], [place], [place], [id number], tel:[phone] [facility] [place] No Information James Rosado. [address] [facility], [place] [address], [place], [place], [id number], [place]. tel:[phone] [facility], [address] [address], [place], [place], [address], [place] tel:[phone] [facility] No Information James Rosado. [address] [facility], [facility] [address], [place], [place], [address], [place]. tel:[phone] Referring Provider: Juve Lewis, [facility] [address] [place], [address]. tel:[phone] [facility], [address] [address], [place], [place], [address], tel:[phone] [facility] No Information James Rosado. [address] [facility], [place], [place], [address], [place]. tel:[phone] Referring Provider: Juve Lewis, [address], [place], [address]. tel:[phone] Family History Family Member Type Diagnosis Age At Onset No Information Payers Payer name Insurance type Covered constitution party ID Authoriza tion(s) Medicare NGS MB [id number] [facility] [id number] Social History Type Description Quantity Date Captured Comments Sex Male Smoking Status No Information Chief Complaint And Reason For Visit No Information Reason For Referral Reason For Referral No Information History Of Present Illness Encounter Date Complaint History Of Prese nt Illness No Information Functional Status Date Functional Assessmen t No Information Instructions Date Instruction Additional Infor mation No Information Assessments Type Assessment Date No Information Patient Care Teams Name Effective Dates (start - stop) Status Members No Information
--- OUTSIDE RECORDS SUMMARY | 2013-03-10 07:01 | XMS_ITS | Continuity of Care Document ---
Author Organization [facility] Kamilla Conradt h PA Address [address] [address] [place] [address] Phone Care Team Providers Care Oncology Radiation Physician Name Role Phone Alonzo Ramirez MD Unavailable Unavailable Procedures Procedure Date Colonoscopy Flex; W/bx 1/mx Colonoscopy Flex; W/remov Les- 13 Ugi Endo; Dx W/wo Collec Specm 07 Advance Directives Directive Yes / No Effective Date File Name No Information Encounters Encounter Description Practice Location Reason(s) For Visit Diagnoses Date Provider Providers Copied on Encounter [facility], [address] [address], [place], [place], [address], tel:[phone] [facility] [place] No Information James Rosado. [address] [facility], [address] [address], [place], [place], [address], [place]. tel:[phone] [facility], [address] [address], [place], [place], [address], [place] tel:[phone] [facility] No Information James Rosado. [address] [facility], [facility] [address], [place], [place], [address], [place]. tel:[phone] Referring Provider: Juve Lewis, [facility] [address] [place], [address]. tel:[phone] [facility], [address] [address], [place], [place], [address], tel:[phone] [facility] No Information James Rosado. [address] [facility], [address], [place], [place], [id number], [place]. tel:[phone] Referring Provider: Juve Lewis, [address] [facility], [place], [address]. tel:[phone] Family History Family Member Type Diagnosis Age At Onset No Information Payers Payer name Insurance type Covered republican ID Authoriza tion(s) Medicare NGS MB [id number] [facility] [id number] Social History Type Description Quantity Date Captured [...]
--- OUTSIDE RECORDS SUMMARY | 2025-05-09 14:02 | XMS_ITS | Encounter Summary ---
Author Organization [facility] Address [address] [place] [address] Care Team Providers Care Miscellaneous Machine Operator Name Role Phone Brionna Thapa APRN, C.N.P. Primary Care Provide r Encounter Details Date Type Department Care Team (Latest Contact Info) Description 05/09/2025 2:02 PM CDT - 05/09/2025 11:59 PM CDT Hospital Encounter Department of Laboratory Medicine in [place], [place] [address] [place] [phone] [address] M[address] [place] [phone] Diabetes Mellitus Type 2 With Diabetic Chronic [...] drink = 0.6 oz pur e alcohol) [facility] Utilities Answer Date Recorded In the [...] by your partner or ex-partner? No 06/30/2023 Hunger Vital Sign Answer Date Recorded Within [...] things needed for daily living? No 05/09/2025 Housing Stability Answer Date Recorded What is your living situation today? 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 100 each 1 09/22/2022 rosuvastatin (Crestor) 20 mg tabletIndications: Hyperlipidemia Take 1 tablet (20 mg total) by mouth daily. 90 tablet 3 05/09/2025 Unifine Pentips 31 gauge x 3/16 needle USE WITH PENS 100 each 3 05/26/2024 documented as of this encounter Plan of Treatment Not on file documented as of this encounter Procedures Procedure [...] M.D. LAB BLOOD ADD-ON Final Re sult [facility] [address] [place] [address], [place] [facility] [place] [address] [place] [address] * (ABNORMAL) Basic Metabolic Panel (05/09/2025 2:28 [...] M.D. LAB BLOOD ADD-ON Final Re sult [facility] [address] [facility] [place] [address], [place] [facility] [address] [place] [address] * (ABNORMAL) Hemoglobin A1c (05/09/2025 2:28 PM [...] M.D. LAB BLOOD ADD-ON Final Re sult [facility] [address] [place] [address], 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 [address] [place] [address] PCP - General 04/28/25 documented as of this encounter
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
--- OUTSIDE RECORDS SUMMARY | 2025-05-09 15:00 | XMS_ITS | Encounter Summary ---
Author Organization [facility] Address [address] [place] [address] Care Team Providers Care Lift Driver Name Role Phone Brionna Thapa APRN, C.N.P. Primary Care Provide r Reason for Referral * Outpatient (Routine) - Authorized Specialty Diagnoses / Procedures Referred By Isaac murray Referred To Contact Family Medicine Brionna Thapa APRN, C.N.P. [address] [place] [address] Phone: tel: fax: [facility] Region Referral ID Status Reason Start Date Expiration Date V isits Requested Visits Authorized [id number] Authorized 05/09/2025 11/08/2026 1 1 Scheduling Instructions 12-Month Medicare Visit Reason for Visit * Reason Comments Medicare Annual Wellness Visit Subsequen t Encounter Details Date Type Department Care Team (Late st Contact Info) Description 05/09/2025 3:00 PM CDT Office Visit Department of Family Medicine in [place], [place] [address] [place] [phone] Ziat Rooney, R.N. Annual Medicare Examination Return (Primary Dx) Social History Tobacco Use Types Packs/Day Years Used Date Smoking Tobacco: Never Smokeless Tobacco: Never Alcohol Use Standard Drinks/Week Comments Not Currently 0 (1 standard drink = 0.6 oz pur e alcohol) [facility] Utilities Answer Date Recorded In the [...] your living situation today? 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 - 05/09/2025 3:00 PM CDT HEALTH [...] in this encounter Plan of Treatment Scheduled Referrals Name Type Priority Associated Diagnoses Orde r Schedule Family Medicine nurse visit (clinic) Outpatient Referral Routine Expected: 05/09/2026 (Approximate), Expires: 08/09/2026 documented as of this encounter Visit Diagnoses Diagnosis Annual Medicare Examination Return- Primary documented in this encounter Additional Health Concerns Assessment Noted Time A fall risk assessment has been complete d for the patient 12/11/2020 10:57 AM REMOTE BROADCAST ENGINEER documented as of this encounter Care Teams Lift Driver Relationship Specialty Start Date End Date Brionna Thapa APRN, C.N.P. [address] [place] [phone] PCP - General 04/28/25 documented as of this encounter
--- OUTSIDE RECORDS SUMMARY | 2025-05-10 10:14 | XMS_ITS | Encounter Summary ---
Author Organization [facility] Address [address] [place] [address] Care Team Providers Care Regional Dedicated Truck Driver Name Role Phone Brionna Thapa APRN, C.N.P. Primary Care Provide r Reason for Referral * Outpatient (Routine) - Closed Specialty Diagnoses / Procedures Referred By Contac t Referred To Contact Diagnoses Pain Chest Procedures ECG 12 Lead [place] EKG 12 LEAD W I&R Brionna Thapa APRN, C.N.P. [address] [place] [address] Phone: tel: fax: [facility] Region Referral ID Status Reason Start Date Expiration Date Visits Re quested Visits Authorized [id number] Closed 05/09/2025 08/09/2026 1 1 Reason for Visit * Outpatient (Routine) - Closed Specialty Diagnoses / Procedures Referred By Contac t Referred To Contact Diagnoses Pain Chest Procedures ECG 12 Lead [place] EKG 12 LEAD W I&R Brionna Thapa APRN, C.N.P. [address] [place] [address] Phone: tel: fax: [facility] Region Referral ID Status Reason Start Date Expiration Date Visits Re quested Visits Authorized [id number] Closed 05/09/2025 08/09/2026 1 1 Encounter Details Date Type Department Care Team (Latest Contact Info) Description 05/10/2025 10:14 AM CDT - 05/10/2025 11:59 PM CDT Hospital Encounter Department of Laboratory Medicine in [place], [place] [address] [place] [address] Brionna Thapa, JAKOB, C.N.P. [address] [place] [phone] Pain Chest Discharge Disposition: Home or Self Care Social History Tobacco Use Types Packs/Day Years Used Date Smoking Tobacco: Never Smokeless Tobacco: Never Alcohol Use Standard Drinks/Week Comments Not Currently 0 (1 standard drink = 0.6 oz pur e alcohol) [facility] Utilities Answer Date Recorded In the past 12 months has th e [employer], gas, oil, or water [employer] threatened to shut off services in your [...] your living situation today? 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 Gender Identity Not on file Sexual Orientation [...] 05/09/2025 pen needle, diabetic (Comfort EZ Pen [place]) 31 gauge x 1/4 needle 10 Units [...] MUSE QTC Interval 521 ms MUSE R [place] -85 degrees MUSE T Wave [place] 93 degrees MUSE 05/10/2025 10:2 7 AM [...] Diagnosis Pain Chest documented in this encounter Additional Health Concerns Assessment Noted Time A fall risk assessment has been complete d for the patient 12/11/2020 10:57 AM KITCHEN WORKER documented as of this encounter Care Teams Regional Dedicated Truck Driver Relationship Specialty Start Date End Date Brionna Thapa APRN, C.N.P. [address] [place] [phone] PCP - General 04/28/25 documented as of this encounter
[2025-06-09] VITALS (10 sets, daily range): BP systolic 132–152; BP diastolic 64–112; PULSE 60–74; RESP 20–24; TEMP 36.6–37.3; O2SAT 87–93
--- OUTSIDE RECORDS SUMMARY | 2025-06-09 20:00 | XMS_ITS | Encounter Summary ---
Author Organization [facility] Address [address] [place] [address] Care Team Providers Care Living Manager Name Role Phone Brionna Thapa APRN, C.N.P. Primary Care Provide r Encounter Details Date Type Department Care Team (Late st Contact Info) Description 05/30/2025 Orders Only [facility] P[facility] MNT Brionna Thapa APRN, C.N.P. [address] [place] [phone] Diabetes Mellitus Type 2 With Diabetic Chronic Kidney Disease (HCC) Social History Tobacco Use Types Packs/Day Years Used Date Smoking Tobacco: Never Smokeless Tobacco: Never Alcohol Use Standard Drinks/Week Comments Not Currently 0 (1 standard drink = 0.6 oz pur e alcohol) [facility] Utilities Answer Date Recorded In the past 12 months has e [employer], gas, oil, or water [employer] threatened to shut off services in your [...] your living situation today? 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 Gender Identity Not on file Sexual Orientation Not on file documented as of this encounter Plan of Treatment Scheduled Orders Name Type Priority Associated Diagnoses Orde r Schedule Albumin, Random, Urine Lab Routine Diabetes Mellitus Type 2 With Diabetic Chronic Kidney Disease (HCC) Expected: 06/13/2025, Expires: 11/16/2025 documented as of this encounter Visit Diagnoses Diagnosis Diabetes Mellitus Type 2 With Diabetic Chronic Kidney Disease (HCC) documented in this encounter Additional Health Concerns Assessment Noted Time A fall risk assessment has been complete d for the patient 12/11/2020 10:57 AM STATISTICS TEACHER documented as of this encounter Care Teams Living Manager Relationship Specialty Start Date End Date Brionna Thapa APRN, C.N.P. [address] [place] [phone] PCP - General 04/28/25 documented as of this encounter
--- OUTSIDE RECORDS SUMMARY | 2025-06-09 20:00 | XMS_ITS | Clinical Summary ---
Author Organization [facility] Address [address] [place] [address] Care Team Providers Care Wire Brush Operator Name Role Phone Brionna Thapa APRN, C.N.P. Primary Care Provide r Source Comments Patient records contain information from all sites at [facility]. For routine questions regarding patient records, call [phone] during business hours, M-F 8:00 AM - 5:00 PM Central Time. Record requests for emergency care only can be directed to [phone] at any time.[facility] Allergies Active Allergy Reactions Criticality Noted Date Comments Daniel Inhibitors Edema (Reselect Reaction) 09/07/2018 Colchicine Other (see comments) Low 12/01/2018 Balance problems Sulfa (Sulfonamide Antibiotics) Rash 02/07/2013 Medications pen needle, diabetic (Comfort EZ Pen Leola) 31 gauge x 1/4 needle 10 Units daily. 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 90 tablet 3 5 Active apixaban (Eliquis) 2.5 mg tabletIndications :Atrial Fibrillation Paroxysmal (HCC) Take 1 tablet (2.5 mg total) by mouth 2 (two) times a day. 180 tablet 3 5 Active glipiZIDE (GlucotroL) 10 mg tabletIndications :Diabetes Mellitus Type 2 With Diabetic Chronic Kidney Disease (HCC) Take 1 tablet (10 mg total) by mouth 2 (two) times a day. 180 tablet 3 5 Active insulin glargine (Lantus Solostar U-100 Insulin) 100 unit/mL (3 mL) penIndications:Di abetes Mellitus Type 2 With Diabetic Chronic Kidney Disease (HCC) Inject 10 Units under the skin at bedtime. Pharmacy select brand per patient insurance/pre ference. 15 mL 11 5 Active losartan (Cozaar) 25 mg tabletIndications :Chronic Kidney Disease (CKD), Stage 3a Glomerular Filtration Rate (GFR) 45 To 59 (HCC) Take 1 tablet (25 mg total) by mouth daily. 90 tablet 3 5 Active metFORMIN (Glucophage) 1,000 mg tabletIndications :Diabetes Mellitus Type 2 With Diabetic Chronic Kidney Disease (HCC) Take 1 tablet (1,000 mg total) by mouth 2 (two) times a day with meals. 180 tablet 3 5 Active rosuvastatin (Crestor) 20 mg tabletIndications :Hyperlipidemia Take 1 tablet (20 mg total) by mouth daily. 90 tablet 3 5 Active Active Problems Problem Noted Date Diagnosed Date [...] resulted in syncope Following with Cardiology at [facility] Chronic Kidney Disease (CKD) , Stage 3a Glomerular Filtration Rate (GFR) 45 To 59 11/01/2019 Financial Analysis Advisor (Current) Anticoagulant Treatment 10/01 Diabetes Mellitus Type [...] his sinus node and AV node disease. [id number] score at least 3 (HTN, age-2) On [...] bpm, resolving during the remaining echo images. 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 Diabetes Mellitus Type 2 With Diabetic Chronic Kidney Disease (HCC) 05/11/2025 Results Follow-Up Department of Family Medicine in [place], [place] [address] [place] [address] Brionna Thapa APRN, C.N.P. ECG 12 Lead 05/10/2025 10:14 AM CDT - 05/10/2025 11:59 PM CDT Hospital Encounter Department of Laboratory Medicine in [place], [place] [address] [place] [address] Brionna Thapa APRN, C.N.P. Pain Chest Discharge Disposition: Home or Self Care 05/09/2025 3:00 PM CDT Office Visit Department of Family Medicine in [address] [phone] Zita Rooney R.N. Annual Medicare Examination Return (Primary Dx) 05/09/2025 2:30 PM CDT Office Visit Department of Family Medicine in [address] [phone] Brionna Thapa APRN, C.N.PBerry Advanced Care Planning (Primary Dx); Pain Chest; [...] Hospital Encounter Department of Laboratory Medicine in [address] [phone] Juve Wade M.D. 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 Med Refill 03/21/2025 Refill Department of Family Medicine in [address] [phone] Juve Wade M.D. Med Refill from Last [...] e alcohol) [facility] Utilities Answer Date Recorded In the past 12 months has e [employer], gas, oil, or water [employer] threatened to shut off services in your [...] your living situation today? 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 Gender Identity Not on file Sexual Orientation [...] 05/09/2025 2:01 PM CDT Plan of Treatment Health Maintenance Due Date Last Done Comments Zoster Vaccines (1 of 2) 1987 Hepatitis B Vaccines (1 of 3 - Risk 3-dose series) 1997 RSV vaccine - (32-36 weeks) or 60+ years (1 - 1-dose 75+ series) 2012 DTaP,Tdap,and Td Vaccines (2 - Td or Tdap) 10/11/2023 10/11/2013 Diabetic Office Visit with Foot Exam 03/17/2024 03/17/2023, 06/17/2021, 05/10/2020, Additional history exists COVID-19 Vaccine ( season) 2025 09/10/2024, 10/07/2023, 10/07/2023, Additional history exists Urine Albumin 08/08/2025 08/08/2024, 08/30, 11/18/2021, Additional history exists Influenza Vaccine (#1) 2025 , 08/26/2022, 08/26/2021, Additional history exists Hemoglobin A1C 11/15/2025 05/16/2025, 04/30, 11/18/2024, Additional history exists Dilated Eye Exam 01/11/2026 01/11/2025 (Per formed elsewhere), 08/20/2022 (Performed elsewhere), 08/21/2020 (Performed elsewhere), Additional history exists Visit: Chronic Disease, age 18+ 05/09/2026 05/09/2025, 05/09/2025 Visit: Medicare Annual Wellness 05/10/2026 05/09/2025 Creatinine Level (Kidney Function Test) 05/20/2026 05/20/2025, 05/18/2025, 05/17/2025, Additional history exists Potassium Level 05/20/2026 05/20/2025, 04/30, 05/17/2025, Additional history exists Sodium Level 05/20/2026 05/20/2025, 04/30, 05/17/2025, Additional history exists Pneumococcal vaccine (50+ years) Completed 07/11/2015, 02/16/2007 Depression Screening (Annual PHQ-2) Completed 05/09/2025, 05/09/2025 Fall Risk Screen (Annual) Completed 05/09/2025 IPV Vaccines Aged Out No longer eligi ble based on patient's age to complete this topic Medical Devices Implanted Type Area Compilation Clerk Device Identifier Shelf Expiration Date Model / Serial / Lot Hip Implant Hip Implant Hip Description:left hip Mesh Or Patch Mesh or Patch Groin Msh Prt Una Lt 12x8 - [id number] Implanted:Qty : 1 on 03/18/2021 by Solis Mike M.D. at [facility] Mesh or Patch Left: Abdomen Medtronic 02/28/2024 [id number] / / [id number] Msh Prt Una Rt 12x8 - [id number] Implanted:Qty : 1 on 03/18/2021 by Solis Mike M.D. at [facility] Mesh or Patch Left: Abdomen Medtronic 02/27/2025 [id number] / / [id number] Pacemaker Pacemaker Chest Wall Procedures Procedure Name [...] MUSE QTC Interval 521 ms MUSE R Limon -85 degrees MUSE T Wave [place] 93 degrees MUSE 05/10/2025 10:2 7 AM [...] ADD-ON Final Re sult Performing Organization Address [facility]/ZIP Co de Phone Number [facility] [address] [place] [address], [facility] NPRG [place] [address] [address] [place] [address] * (ABNORMAL) Hemoglobin A1c (05/09/2025 2:28 PM CDT) [facility] Hemoglobin A1c, B 7.6(H) 4.2 - 5.6 [...] ADD-ON Final Re sult Performing Organization Address City/[facility]/ZIP Co de Phone Number [facility] [address] [place] [address], [place] NPR[place] [address] [place] [address] * (ABNORMAL) Basic Metabolic Panel (05/09/2025 2:28 [...] M.D. LAB BLOOD ADD-ON Final Re sult [facility] [address] [place] [address], [place] [address] [address] [place] [address] * (ABNORMAL) Albumin, Random, Urine (08/08/2024 9:14 AM CDT) Microalbumin 45.0 mg/L 08/08/2024 12:26 PM CDT NPRG Creatinine 119 mg/dL 08/08/2024 12:26 PM CDT NPRG Albumin/Creatinin e Ratio 38(H) <17 mg/g 08/08/2024 12:26 PM CDT NPRG Urine (Urine, Midstream) 08/08/2024 9:14 AM CDT 08/08/2024 11:39 AM CDT Juve Wade M.D. LAB URINE ORDERABLES Kailey urbina Result [facility] [address] [place] [address], [place] NPR[place] [facility] [address] [place] [address] from Last 3 Months or Most Recently Relevant to Health Maintenance Insurance MEDICARE [facility] Advance Directives For more information, please contact: [phone] * Full Code (Latest Code Status on File) Date Activated Date Inactivated Comments 03/18/2021 10:54 AM 03/19/2021 3:48 PM Question Answer Comments Full Code: Discussed * Full Code Date Activated Date Inactivated Comments 10/26/2019 12:10 AM 10/26/2019 4:06 PM Question Answer Comments Full Code: Discussed Care Teams Wire Brush Operator Relationship Specialty Start Date End Date Brionna Thapa APRN, C.N.P. [address] [place] [phone] PCP - General 04/28/25
--- OUTSIDE RECORDS SUMMARY | 2025-06-09 20:00 | XMS_ITS | Encounter Summary ---
Author Organization [facility] Address [address] [place] [address] Care Team Providers Care Binding End Stitcher Name Role Phone Brionna Thapa APRN, C.N.P. Primary Care Provide r Encounter Details Date Type Department Care Team (Late st Contact Info) Description 05/11/2025 Results Follow-Up Department of Family Medicine in [place], [place] [address] [place] [phone] Brionna Thapa APRN, C.N.P. [address] [place] [phone] ECG 12 Lead Social History Tobacco Use Types Packs/Day Years Used Date Smoking Tobacco: Never Smokeless Tobacco: Never Alcohol Use Standard Drinks/Week Comments Not Currently 0 (1 standard drink = 0.6 oz pur e alcohol) [facility] Utilities Answer Date Recorded In the past 12 months has [facility] Pro Breath MD, gas, oil, or water [employer] threatened to shut off services in your [...] your living situation today? 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 [address] [place] [phone] PCP - General 04/28/25 documented as of this encounter
--- OUTSIDE RECORDS SUMMARY | 2025-06-09 20:01 | XMS_ITS | Clinical Summary ---
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 Active acetaminophen 325 mg tabletIndications :Pain Take 2 Tablets (650 mg) by mouth every 4 hours if needed for Pain. Max acetaminophen dose: 4000mg in 24 hrs. 60 Tablet 025 Active amLODIPine 10 mg tabletIndications :Essential hypertension Take 1 Tablet (10 mg) by mouth once daily. 30 Tablet 1 025 Active apixaban 5 mg tabletIndications :prevent thromboembolism in chronic atrial fibrillation Take 1 Tablet (5 mg) by mouth two times daily. 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 Give subcutaneous 3 times a day with meals per blood glucose (mg/dL). Don't give corrective dose for PRN, post-prandial or nocturnal glucose checks unless ordered. <70............ .See Hypoglycemia Protocol;70-149 ........No insulin, give prandial insulin, if ordered;150-199 ......2 units;200-249.. ....4 units;250-299.. ....6 units;300-349.. ....8 units;350-399.. 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 6 mL 1 025 Active losartan 25 mg tabletIndications :Essential hypertension Take 1 Tablet (25 mg) by mouth once daily. 30 Tablet 1 025 Active metoprolol tartrate 25 mg tabletIndications :PAF (paroxysmal atrial fibrillation) (HC) Take 0.5 Tablets (12.5 mg) by mouth two times daily. Hold if sbp < 100 or hr < 55 30 Tablet 025 Active polyethylene glycol 17 g per packet packetIndications :Other constipation Mix 17 g in liquid then take by mouth once daily if needed for Constipation. 30 Packet 025 Active rosuvastatin 20 mg tabletIndications :Diabetes mellitus type II, non insulin dependent (HC) Take 1 Tablet (20 mg) by mouth at bedtime. 30 Tablet 025 Active Sennosides 17.2 mg tabIndications:Ot her constipation Take 17.2 mg by mouth 2 times daily if needed (constipation). 60 Tablet 025 Active glipiZIDE (GLUCOTROL) 10 mg tablet Take 1 tablet by mouth 2 times daily before meals. 0 01/17/2 017 2024 Discontinued(* IP Discontinued) sitaGLIPtin (JANUVIA) 50 mg tablet Take 1 tablet by mouth once daily. 0 017 2024 Discontinued(M edication therapy change per hospital protocol (E-cancel not sent)) rosuvastatin (CRESTOR) 20 mg tabletIndications :Diabetes mellitus type II, non insulin dependent (HC) Take 1 tablet by mouth at bedtime. 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 90 Each 11/21/20 19 10:57 AM [employer]IDENT [employer] DEVELOPMENT 019 2024 Discontinued(R eorder (E-cancel not sent)) ELIQUIS 2.5 mg tabletIndications :Symptomatic bradycardia TAKE 1 TABLET TWICE A DAY FOR TREATMENT TO PREVENT BLOOD CLOTS IN CHRONIC ATRIAL FIBRILLATION 180 tablet 020 2024 Discontinued(M edication therapy change per hospital protocol (E-cancel not sent)) dulaglutide (TRULICITY) 0.75 mg/0.5 mL injection Inject 0.75 mg subcutaneous. 020 2024 Discontinued(M edication therapy change per hospital protocol (E-cancel not sent)) amLODIPine (NORVASC) 10 mg tabletIndications :Essential hypertension Take 1 Tablet (10 mg) by mouth once daily. 90 Tablet 3 021 2024 Discontinued(R eorder (E-cancel not sent)) furosemide (LASIX) 40 mg tabletIndications :Essential hypertension TAKE 1 TABLET EVERY MORNING 90 Tablet 2 021 2024 Discontinued(* IP Discontinued) apixaban 2.5 mg tablet Take 2.5 mg by mouth two times daily. 2024 Discontinued(* Patient states no longer taking) Lantus Solostar U-100 Insulin 100 unit/mL (3 mL) pen Inject 10 units subcutaneous before bedtime. 2024 Discontinued aspirin enteric coated 81 mg tabletIndications :Cerebrovascular accident (CVA), unspecified mechanism (HC) Take 1 Tablet (81 mg) by mouth once daily with a meal. Do not crush or chew. 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 Give subcutaneous 3 times a day with meals per blood glucose (mg/dL). Don't give corrective dose for PRN, post-prandial or nocturnal glucose checks unless ordered. Blood Glucose.....Dos e <70............ 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 025 2024 Discontinued(R eorder (E-cancel not sent)) acetaminophen 325 mg tabletIndications :Pain Take 2 Tablets (650 mg) by mouth every 4 hours if needed for Pain. Max acetaminophen dose: 4000mg in 24 hrs. 025 2024 Discontinued(R eorder (E-cancel not sent)) apixaban 5 mg tabletIndications :prevent thromboembolism in chronic atrial fibrillation Take 1 Tablet (5 mg) by mouth two times daily. 025 2024 Discontinued(R eorder (E-cancel not sent)) metoprolol tartrate 25 mg tabletIndications :PAF (paroxysmal atrial fibrillation) (HC) Take 0.5 Tablets (12.5 mg) by mouth two times daily. Hold if sbp < 100 or hr < 55 025 2024 Discontinued(R eorder (E-cancel not sent)) polyethylene glycol 17 g per packet packetIndications :Other constipation Mix 17 g in liquid then take by mouth once daily if needed for Constipation. 2024 Discontinued(R eorder (E-cancel not sent)) sennosides 17.2 mg tabIndications:Ot her constipation Take 17.2 mg by mouth 2 times daily if needed for Constipation. 2024 Discontinued(R eorder (E-cancel not sent)) acetaminophen 325 mg tabletIndications :Pain Take 2 Tablets (650 mg) by mouth every 4 hours if needed for Pain. Max acetaminophen dose: 4000mg in 24 hrs. 60 Tablet 2024 Discontinued(R eorder (E-cancel not sent)) amLODIPine 10 mg tabletIndications :Essential hypertension Take 1 Tablet (10 mg) by mouth once daily. 30 Tablet 1 2024 Discontinued(R eorder (E-cancel not sent)) apixaban 5 mg tabletIndications :prevent thromboembolism in chronic atrial fibrillation Take 1 Tablet (5 mg) by mouth two times daily. 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 Give subcutaneous 3 times a day with meals per blood glucose (mg/dL). Don't give corrective dose for PRN, post-prandial or nocturnal glucose checks unless ordered. Blood Glucose.....Dos e <70............ 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 6 mL 1 2024 Discontinued(R eorder (E-cancel not sent)) losartan 25 mg tabletIndications :Essential hypertension Take 1 Tablet (25 mg) by mouth once daily. 30 Tablet 1 2024 Discontinued(R eorder (E-cancel not sent)) metoprolol tartrate 25 mg tabletIndications :PAF (paroxysmal atrial fibrillation) (HC) Take 0.5 Tablets (12.5 mg) by mouth two times daily. Hold if sbp < 100 or hr < 55 30 Tablet 2024 Discontinued(R eorder (E-cancel not sent)) polyethylene glycol 17 g per packet packetIndications :Other constipation Mix 17 g in liquid then take by mouth once daily if needed for Constipation. 30 Packet 025 2024 Discontinued(R eorder (E-cancel not sent)) rosuvastatin 20 mg tabletIndications :Diabetes mellitus type II, non insulin dependent (HC) Take 1 Tablet (20 mg) by mouth at bedtime. 30 Tablet 025 2024 Discontinued(R eorder (E-cancel not sent)) Sennosides 17.2 mg tabIndications:Ot her constipation Take 17.2 mg by mouth 2 times daily if needed (constipation). 60 Tablet 025 2024 Discontinued(R eorder (E-cancel not sent)) Active Problems Patient Care Coordination No te [...] with significant first degree AV block with NE interval of approximately 440 ms with right [...] bpm, resolving during the remaining echo images. [id number] score at least 3 (HTN, age-2) On [...] Encounters Date Type Department Care Team Description 06/01/2025 Lab Requisition [facility] [phone] John Russ MD 06/01/2025 Orders Only [facility] [address] [place] [address] Toño Luna MD <No scans attached> 05/29/2025 Travel 05/19/2025 5:23 PM CDT - 06/01/2025 10:00 AM CDT Hospital Encounter [facility] [address] [place] [address] Toño Luna MD Type 2 diabetes mellitus with stage 3 chronic kidney disease, with long-term current use of insulin, unspecified whether stage 3a or 3b CKD (HC) (Primary Dx); Acute ischemic left MCA stroke (HC); Other urinary incontinence; Pain; PAF/flutter ; Other constipation; Essential hypertension; Diabetes mellitus type II, non insulin dependent (HC) Discharge Disposition: Fdc Facility 05/16/2025 [place] [facility] [address] [facility] [address] [place] [id number] Carline Cardenas RN Device Check (MRI Checklist ) 05/15/2025 9:14 PM CDT - 05/19/2025 5:00 PM CDT Hospital Encounter [facility] [address] [place] [address] Mello Casanova MD [facility], [facility]ists Of Cerebrovascular accident (CVA), unspecified mechanism (HC) (Primary Dx); Other problems related to housing and economic circumstances; Transportation insecurity Discharge Disposition: Rehab Facility or Unit 05/15/2025 Office Visit [address] [address] Zoie Faye MD from Last 3 Months [...] 0 11/15/2019 Social Connections Answer Date Recorded Do you often feel lonely or isolated from those around you? 0 05/29/2025 Financial Resource Strain Answer Date R ecorded Difficulty of Paying Living Expenses 3 05/29/2025 Difficulty of Paying Living Expenses Not on file 05/29/2025 Food Insecurity Answer Date Recorded Do you worry your food will run out before you are able to buy more? 1 05/29/2025 Transportation Needs Answer Date Record ed Does lack of transportation keep you from medica l appointments? 2 05/29/2025 Does lack of transportation keep you from work, meetings or getting things that you need? 2 05/29/2025 Housing Stability Answer Date Recorded What is your housing situation today? 1 05/29/2025 Interpersonal Safety Answer Date Record ed Are you being hit, kicked, p ushed or yelled at (see row info)? No 05/26/2025 Interpersonal Safety Abuse 12 - 18 Not on file 05/26/2025 Interpersonal Safety Ambulatory Vulnerability No t on file 05/26/2025 Utilities Answer Date Recorded Do you have trouble paying f or utilities (for example, heat, electricity, water, phone)? 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 Gender Identity Not on file Sexual Orientation Not on file Obstetrics History Last Filed Vital Signs Vital Sign Reading Time Taken Comments Blood Pressure 149/68 06/01/2025 9:33 AM CDT Pulse 59 06/01/2025 9:33 AM CDT Temperature 36.7 C (98 F) 06/01/2025 9:33 AM CDT Respiratory Rate 16 06/01/2025 9:33 AM CDT Oxygen Saturation 96% 06/01/2025 9:33 AM CDT Inhaled Oxygen Concentration - - Weight 89.1 kg (196 lb 6.9 oz) 06/01/2025 6:00 A M CDT Height 177.8 cm (5' 10) 05/19/2025 5:46 PM CDT Body Mass Index 28.18 05/19/2025 5:46 PM CDT Plan of Treatment Upcoming Encounters Date Type Department Care Team (Late st Contact Info) Description 07/18/2025 2:15 PM CDT Office Visit [facility] [address] [place] [id number] [place] [address] Thomas An, [address] [facility] [address] [place] [address] 10/11/2025 11:30 AM VICE PRESIDENT [employer] DEVELOPMENT Cardiac Device Check [facility] at [address] [address] Health Maintenance Due Date Last Done Comments Tetanus booster 1948 Pneumococcal series for age 50+ (1 of 2 - PCV) 1956 Zoster (shingles) series for age 50+ (1 [...] 10/07/2023, 10/06/2022, Additional history exists Influenza Vaccine (#1) 2025 Hepatitis B series for 19+ Aged Out N o longer eligible based on patient's age to complete this topic Medical Devices Implanted Type Area Smoke Jumper Device Identifier Shelf Expiration Date Model / Serial / Lot Dual Chamber Mri 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 by Ming Hammond MD (Quantity not on file) Standard Pacemaker [employer] PERFECTO XT DR MRI [id number] / [id number] / Procedures Procedure Name Priority Date/Time Associated Diagnosis Comments CBC WITH AUTO DIFFERENTIAL Routine 06/06/2025 7:19 AM CDT Other specified postprocedural states BASIC METABOLIC PANEL Routine 06/06/2025 7:19 AM CDT Other specified postprocedural states CBC WITH AUTO DIFFERENTIAL Routine 06/06/2025 7:19 AM CDT Other specified postprocedural states GLUCOSE METER Timed 06/01/2025 8:15 AM CDT GLUCOSE METER Timed 06/01/2025 7:09 AM CDT BASIC METABOLIC PANEL Early AM 06/01/2025 5:29 AM CDT GLUCOSE METER Timed 05/31/2025 9:23 PM CDT GLUCOSE METER Timed 05/31/2025 4:51 PM CDT GLUCOSE METER Timed 05/31/2025 12:01 PM CDT CREATININE Early AM 05/31/2025 8:17 AM CDT POTASSIUM Early AM 05/31/2025 8:17 AM CDT SODIUM Early AM 05/31/2025 8:17 AM CDT GLUCOSE METER Timed 05/31/2025 7:55 AM CDT GLUCOSE METER Timed 05/30/2025 9:35 PM CDT UA W/ SEDIMENT EXAM REFLEXED PER CRITERIA Today 05/30/2025 6:26 PM CDT POTASSIUM Today 05/30/2025 5:48 PM CDT GLUCOSE METER Timed 05/30/2025 4:50 PM CDT PROCALCITONIN Today 05/30/2025 1:00 PM CDT COMP METABOLIC PANEL Early AM 05/30/2025 1:00 PM CDT GLUCOSE METER Timed 05/30/2025 12:00 PM CDT GLUCOSE METER Timed 05/30/2025 11:21 AM CDT GLUCOSE METER Timed 05/30/2025 7:50 AM CDT XR CHEST 1 VIEW PORTABLE STAT 05/30/2025 3:17 AM CDT GLUCOSE METER Timed 05/30/2025 2:47 AM CDT GLUCOSE METER Timed 05/29/2025 9:30 PM CDT GLUCOSE METER Timed 05/29/2025 4:30 PM CDT GLUCOSE METER Timed 05/29/2025 12:03 PM CDT GLUCOSE METER Timed 05/29/2025 7:53 AM CDT GLUCOSE METER Timed 05/28/2025 9:37 PM CDT GLUCOSE METER Timed 05/28/2025 4:25 PM CDT GLUCOSE METER Timed 05/28/2025 12:00 PM CDT GLUCOSE METER Timed 05/28/2025 11:42 AM CDT GLUCOSE METER Timed 05/28/2025 7:48 AM CDT GLUCOSE METER Timed 05/27/2025 9:39 PM CDT GLUCOSE METER Timed 05/27/2025 4:38 PM CDT GLUCOSE METER Timed 05/27/2025 4:22 PM CDT GLUCOSE METER Timed 05/27/2025 11:22 AM CDT GLUCOSE METER Timed 05/27/2025 7:34 AM CDT GLUCOSE METER Timed 05/26/2025 9:37 PM CDT GLUCOSE METER Timed 05/26/2025 4:31 PM CDT GLUCOSE METER Timed 05/26/2025 11:55 AM CDT GLUCOSE METER Timed 05/26/2025 8:03 AM CDT GLUCOSE METER Timed 05/25/2025 9:20 PM CDT GLUCOSE METER Timed 05/25/2025 4:51 PM CDT GLUCOSE METER Timed 05/25/2025 11:43 AM CDT GLUCOSE METER Timed 05/25/2025 7:56 AM CDT GLUCOSE METER Timed 05/24/2025 8:53 PM CDT GLUCOSE METER Timed 05/24/2025 4:35 PM CDT GLUCOSE METER Timed 05/24/2025 12:13 PM CDT GLUCOSE METER Timed 05/24/2025 8:03 AM CDT GLUCOSE METER Timed 05/23/2025 9:57 PM CDT GLUCOSE METER Timed 05/23/2025 4:52 PM CDT GLUCOSE METER Timed 05/23/2025 11:48 AM CDT GLUCOSE METER Timed 05/23/2025 7:45 AM CDT GLUCOSE METER Timed 05/22/2025 9:17 PM CDT GLUCOSE METER Timed 05/22/2025 4:57 PM CDT GLUCOSE METER Timed 05/22/2025 12:05 PM CDT GLUCOSE METER Timed 05/22/2025 7:53 AM CDT GLUCOSE METER Timed 05/21/2025 9:21 PM CDT GLUCOSE METER Timed 05/21/2025 4:34 PM CDT GLUCOSE METER Timed 05/21/2025 11:40 AM CDT GLUCOSE METER Timed 05/21/2025 8:01 AM CDT GLUCOSE METER Timed 05/20/2025 9:10 PM CDT GLUCOSE METER Timed 05/20/2025 4:56 PM CDT GLUCOSE METER Timed 05/20/2025 11:38 AM CDT GLUCOSE METER Timed 05/20/2025 8:29 AM CDT CBC W PLT NO DIFF Early AM 05/20/2025 7:1 5 AM CDT BASIC METABOLIC PANEL Early AM 05/20/2025 7:15 AM CDT GLUCOSE METER Timed 05/20/2025 12:10 AM CDT GLUCOSE METER Timed 05/19/2025 12:05 PM CDT MAGNESIUM Timed 05/19/2025 7:35 AM CDT GLUCOSE METER Timed 05/19/2025 6:33 AM CDT SCAN-CARDIAC STRIP 05/19/2025 3: 18 AM CDT GLUCOSE METER Timed 05/19/2025 2:02 AM CDT GLUCOSE METER Timed 05/18/2025 9:51 PM CDT [...] from Last 3 Months Results * (ABNORMAL) CBC WITH AUTO DIFFERENTIAL (06/06/2025 7:19 AM CDT) Only the most recent of2 resultswithin the time period is included. WHITE BLOOD COUNT 6.6 4.5 - 11.0 thou/cu mm 06/06/2025 8:48 AM CDT [facility] RED BLOOD COUNT 2.58(L) 4.30 - 5.90 mil/cu mm 06/06/2025 8:48 AM [facility] HEMOGLOBIN 7.7(L) 13.5 - 17.5 g/dL 06/06/2025 8:48 AM [facility] HEMATOCRIT 24.7(L) 37.0 - 53.0 % 06/06/2025 8:48 AM [facility] MCV 96 80 - 100 fL 06/06/2025 8:48 AM [facility] MCH 29.8 26.0 - 34.0 pg 06/06/2025 8:48 AM [facility] MCHC 31.2(L) 32.0 - 36.0 g/dL 06/06/2025 8:48 AM [facility] RDW 16.1(H) 11.5 - 15.5 % 06/06/2025 8:48 AM [facility] PLATELET COUNT 399 140 - 440 thou/cu mm 06/06/2025 8:48 AM [facility] MPV 10.0 6.5 - 11.0 fL 06/06/2025 8:48 AM [facility] % NEUT 81.5 % 06/06/2025 8:48 AM [facility] % LYMPH 9.7 % 06/06/2025 8:48 AM [facility] % MONO 6.6 % 06/06/2025 8:48 AM [facility] % EOS 2.0 % 06/06/2025 8:48 AM [facility] % BASO 0.2 % 06/06/2025 8:48 AM [facility] ABSOLUTE NEUTROPHILS 5.4 1.7 - 7.0 thou/cu mm 06/06/2025 8:48 AM [facility] ABSOLUTE LYMPHOCYTES 0.6(L) 0.9 - 2.9 thou/cu mm 06/06/2025 8:48 AM [facility] ABSOLUTE MONOCYTES 0.4 <0.9 thou/cu mm 06/06/2025 8:48 AM [facility] ABSOLUTE EOSINOPHILS 0.1 <0.5 thou/cu mm 06/06/2025 8:48 AM [facility] ABSOLUTE BASOPHILS 0.0 <0.3 thou/cu mm 06/06/2025 8:48 AM [facility] Blood BLOOD SPECIMEN / Unknown Venipuncture / Unknown 06/06/2025 7:19 AM CDT 06/06/2025 8:38 AM CDT us John Russ MD HEMATOLOGY Final Result [facility] [address] [place] [address] * (ABNORMAL) BASIC METABOLIC PANEL (06/06/2025 7:19 AM CDT) Only the most recent of6 resultswithin the time period is included. SODIUM 140 136 - 145 mmol/L 06/06/2025 9:08 AM [facility] POTASSIUM 4.5 3.5 - 5.1 mmol/L 06/06/2025 9:08 AM [facility] CHLORIDE 105 98 - 107 mmol/L 06/06/2025 9:08 AM [facility] CO2,TOTAL 20(L) 22 - 29 mmol/L 06/06/2025 9:08 AM [facility] ANION GAP 15 5 - 18 06/06/2025 9:08 AM [facility] GLUCOSE 180(H) 70 - 99 mg/dL 06/06/2025 9:08 AM [facility] CALCIUM 9.1 8.8 - 10.4 mg/dL 06/06/2025 9:08 AM [facility] Comment: Reference ranges for this test were updated on 10/04/2024 to reflect our healthy population more accurately. Reference range changes are not retroactively applied to results, but previous results using the same methodology can be interpreted in the context of the new reference range. BUN 36(H) 8 - 23 mg/dL 06/06/2025 9:08 AM T [facility] CREATININE 1.30(H) 0.70 - 1.20 mg/dL 06/06/2025 9:08 AM [facility] BUN/CREAT RATIO 28(H) 10 - 20 9:08 AM T [facility] eGFR 53(L) >90 mL/min/1. 73m2 06/06/2025 9:08 AM [facility] Comment:As of 2022, eG FR is calculated by the CKD-EPI creatinine equation without race adjustment. eGFR can be influenced by muscle mass, exercise, and diet. The reported eGFR is an estimation only and is only applicable if the renal function is stable. Blood BLOOD SPECIMEN / Unknown Venipuncture / Unknown 06/06/2025 7:19 AM CDT 06/06/2025 8:38 AM CDT John Russ MD CHEMISTRY Final Result [facility] [address] [place] [address] * (ABNORMAL) GLUCOSE METER (06/01/2025 8:15 AM CDT) Only the most recent of73 resultswithin the time period is included. GLUCOSE METER 169(H) 65 - 100 mg/dL 06/01/2025 8:16 AM CDT [facility] Blood BLOOD SPECIMEN / Unknown 06/01/2025 8:15 AM CDT 06/01/2025 8:16 AM CDT us Toño Luna MD CHEMISTRY Final Result [facility] [address] [place] [address], * SODIUM (05/31/2025 8:17 AM CDT) SODIUM 138 136 - 145 mmol/L 05/31/2025 9:07 AM CDT [facility] Blood BLOOD SPECIMEN / Unknown Venipuncture / Unknown 05/31/2025 8:17 AM CDT 05/31/2025 8:40 AM CDT Mello Casanova MD CHEMISTRY Final Result Performing Organization Address City/[facility]/ZIP Co de Phone Number [facility] [address] [place] [id number], [place] * (ABNORMAL) POTASSIUM (05/31/2025 8:17 AM CDT) Only the most recent of2 resultswithin the time period is included. POTASSIUM 5.3(H) 3.5 - 5.1 mmol/L 05/31/2025 9:07 AM CDT [facility] Blood BLOOD SPECIMEN / Unknown Venipuncture / Unknown 05/31/2025 8:17 AM CDT 05/31/2025 8:40 AM CDT Mello Casanova MD CHEMISTRY Final Result Performing Organization Address [facility] de Phone Number [facility] [address] [address], [place] * (ABNORMAL) CREATININE (05/31/2025 8:17 AM CDT) eGFR 45(L) >90 mL/min/1.7 3m2 05/31/2025 9:07 AM CDT [facility] Comment:As of 2022, eG FR is calculated by the CKD-EPI creatinine equation without race adjustment. eGFR can be influenced by muscle mass, exercise, and diet. The reported eGFR is an estimation only and is only applicable if the renal function is stable. CREATININE 1.49(H) 0.70 - 1.20 mg/dL 05/31/2025 9:07 AM CDT [facility] Blood BLOOD SPECIMEN / Unknown Venipuncture / Unknown 05/31/2025 8:17 AM CDT 05/31/2025 8:40 AM CDT us Mello Casanova MD CHEMISTRY Final Result [facility] [address] [place] [address], [place] * (ABNORMAL) Urinalysis TODAY (05/30/2025 6:26 PM CDT) COLOR Yellow Yellow Color 05/30/2025 6:38 PM CDT [facility] CLARITY Clear Clear Clarity 05/30/2025 6:38 PM CDT [facility] SPECIFIC GRAVITY,URINE 1.015 1.010, 1.015, 1.020, 1.025 05/30/2025 6:38 PM CDT [facility] PH,URINE 5.0(A) 6.0, 7.0, 8.0, 5.5, 6.5, 7.5, 8.5 05/30/2025 6:38 PM CDT [facility] UROBILINOGEN, QUALITATIVE Normal Normal EU/dl 05/30/2025 6:38 PM CDT [facility] PROTEIN, URINE Negative Negative mg/dL 05/30/2025 6:38 PM CDT [facility] GLUCOSE, URINE Negative Negative mg/dL 05/30/2025 6:38 PM CDT [facility] KETONES,URINE Negative Negative mg/dL 05/30/2025 6:38 PM CDT [facility] BILIRUBIN,URI NE Negative Negative 05/30/2025 6:38 PM CDT [facility] OCCULT BLOOD,URINE Negative Negative 05/30/2025 6:38 PM CDT [facility] NITRITE Negative Negative 05/30/2025 6:38 PM CDT [facility] LEUKOCYTE ESTERASE Negative Negative 05/30/2025 6:38 PM CDT [facility] Urine URINE SPECIMEN / Unknown Non-Blood / Unknown 05/30/2025 6:26 PM CDT 05/30/2025 6:31 PM CDT us Mello Casanova MD URINE Final Result [facility] [address] [place] [address], * PROCALCITONIN (05/30/2025 1:00 PM CDT) PROCALCITONIN 0.11 ng/ml 05/30/2025 2:04 PM CDT [facility] Blood BLOOD SPECIMEN / Unknown Non-Lab Venipuncture / Unknown 05/30/2025 1:00 PM CDT 05/30/2025 1:11 PM CDT Narrative [facility] - 05/30/2025 2:04 PM CDT Procalcitonin for initial assessment of Lower Respiratory Tract Infection: Results Interpretation <0.10 ng/mL Antibiotic therapy strongly discoraged. Indicates absent of bacterial infection. * 0.10 - 0.25 ng/mL Antibiotic therapy discouraged. Bacterial infection unlikely. * 0.26 - 0.50 ng/mL Antibiotic therapy encouraged. Bacterial infection possible. >0.50 ng/mL Antibiotic therapy strongly encouraged. Suggestive of presence of bacterial infection. *Antibiotic therapy should be considered regardless of PCT result if the patient is clinically unstable, is at high risk for adverse outcome, has strong evidence of bacterial pathogen, or the clinical context indicates antibiotic therapy is warranted. If antibiotics are withheld, reassess if symptoms persist/worsen and/or repeat PCT measurement within 6-24 hours. In order to assess treatment success and to support a decision to discontinue antibiotic therapy, follow up samples should be tested once every 1-2 days, based upon physician discretion taking into account patient's evolution and progress. Procalcitonin for initial assessment of severe sepsis risk: Results Interpretation <0.5 ng/ml A PCT level below 0.5 ng/ml on the first day of ICU admission is associated with a low risk for progression to severe sepsis and/or septic shock. > 2.0 ng/mL A PCT level above 2.0 ng/mL on the first day of ICU admission is associated with a high risk for progression to severe sepsis and/or septic shock. Note: Concentrations < 0.5 ng/mL do not exclude an infection, on account of localized infections (without systemic signs) which can be associated with such low concentrations, or a systemic infection in its initial stages(< 6 hours). Furthermore, increased procalcitonin can occur without infection. PCT concentrations between 0.5 and 2.0 ng/mL should be interpreted taking into account the patient's history. It is recommended to retest PCT within 6-24 hours if any concentrations < 2 ng/mL are obtained. us Mello Casanova MD SEND OUTS Final Result [facility] [address] [place] [address], [place] * (ABNORMAL) COMP METABOLIC PANEL (05/30/2025 1:00 PM CDT) SODIUM 135(L) 136 - 145 mmol/L 05/30/2025 2:04 PM CDT [facility] POTASSIUM 5.7(H) 3.5 - 5.1 mmol/L 05/30/2025 2:04 PM CDT [facility] CHLORIDE 99 98 - 107 mmol/L 05/30/2025 2:04 PM CDT [facility] CO2,TOTAL 22 22 - 29 mmol/L 05/30/2025 2:04 PM CDT [facility] ANION GAP 14 5 - 18 05/30/2025 2:04 PM CDT [facility] GLUCOSE 288(H) 70 - 99 mg/dL 05/30/2025 2:04 PM CDT [facility] CALCIUM 8.9 8.8 - 10.4 mg/dL 05/30/2025 2:04 PM CDT [facility] Comment: Reference ranges for this test were updated on 10/04/2024 to reflect our healthy population more accurately. Reference range changes are not retroactively applied to results, but previous results using the same methodology can be interpreted in the context of the new reference range. BUN 40(H) 8 - 23 mg/dL 05/30/2025 2:04 PM CDT [facility] CREATININE 1.44(H) 0.70 - 1.20 mg/dL 05/30/2025 2:04 PM CDT [facility] BUN/CREAT RATIO 28(H) 10 - 20 2:04 PM CDT [facility] eGFR 47(L) >90 mL/min/1. 73m2 05/30/2025 2:04 PM CDT [facility] Comment:As of 2022, eG FR is calculated by the CKD-EPI creatinine equation without race adjustment. eGFR can be influenced by muscle mass, exercise, and diet. The reported eGFR is an estimation only and is only applicable if the renal function is stable. ALBUMIN 3.6(L) 4.0 - 4.9 g/dL 05/30/2025 2:04 PM CDT [facility] PROTEIN,TOTAL 6.5 6.0 - 8.0 g/dL 05/30/2025 2:04 PM CDT [facility] BILIRUBIN,TOTAL 0.6 0.0 - 1.2 mg/dL 05/30/2025 2:04 PM CDT [facility] ALK PHOSPHATASE 108 40 - 129 IU/L 05/30/2025 2:04 PM CDT [facility] ALT (SGPT) 20 10 - 50 IU/L 05/30/2025 2:04 PM CDT [facility] AST (SGOT) 26 10 - 50 IU/L 05/30/2025 2:04 PM CDT [facility] Blood BLOOD SPECIMEN / Unknown Non-Lab Venipuncture / Unknown 05/30/2025 1:00 PM CDT 05/30/2025 1:11 PM CDT us Toño Luna MD CHEMISTRY Final Result [facility] 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 Anatomical Region Laterality Modality HEART, THORAX, CHEST Digital Rad iography 05/30/2025 3:23 AM CDT Impressions 05/30/2025 3:23 AM CDT 1. There has been no significant interval changes. Dictated by Richy Niño MD @ 05/30/2025 3:23:00 AM Dictated by: Richy Niño MD @ 05/30/2025 03:23:05 (Electronically Signed) Narrative 05/30/2025 3:23 AM CDT For Patients: As a result of the Cures Act, medical imaging exams and procedure reports are released immediately into your electronic medical record. You may view this report before your referring provider. If you have questions, please contact your health care provider. INDICATION: Shortness of breath TECHNIQUE: Chest radiograph 1 view COMPARISON: 05/18/2025 FINDINGS: The sensitivity and specificity of the exam are severely limited by the patient`s body habitus. Mediastinum: Moderate calcifications of the mitral valve annulus are present. This can be associated with coronary artery disease. The central pulmonary arteries are near the upper limits of normal in size. Moderate stable cardiomegaly is noted. There is a left cardiac pacer present with leads in the right atrium and right ventricle. Lung: Small lung volumes are present with indistinctness of the pulmonary vessels, likely due to interstitial edema. Consolidation in the left lower lobe and small left pleural effusion are noted without change. No pneumothorax is identified. Bone and Soft tissue: Unremarkable for age. Procedure Note Richy Niño MD - 05/30/2025 For Patients: As a result of the Cures Act, medical imagingexams and procedure reports are released immediately into your electronicmedical record. You may view this report before your referring provider.If you have questions, please contact your health care provider. INDICATION: Shortness of breath TECHNIQUE: Chest radiograph 1 view COMPARISON: 05/18/2025 FINDINGS: The sensitivity and specificity of the exam are severely limitedby the patient`s body habitus. Mediastinum: Moderate calcifications of the mitral valve annulus arepresent. This can be associated with coronary artery disease. The centralpulmonary arteries are near the upper limits of normal in size. Moderatestable cardiomegaly is noted. There is a left cardiac pacer present withleads in the right atrium and right ventricle. Lung: Small lung volumes are present with indistinctness of the pulmonaryvessels, likely due to interstitial edema. Consolidation in the left lowerlobe and small left pleural effusion are noted without change. Nopneumothorax is identified. Bone and Soft tissue: Unremarkable for age. IMPRESSION: 1. There has been no significant interval changes. Dictated by Richy Niño MD @ 05/30/2025 3:23:00 AM Dictated by: Richy Niño MD @ 05/30/2025 03:23:05 (Electronically Signed) Toño Luna MD GENERAL IMAGING Final Result * (ABNORMAL) CBC W PLT NO DIFF (05/20/2025 7:15 AM CDT) WHITE BLOOD COUNT 8.1 4.5 - 11.0 thou/cu mm 05/20/2025 7:41 AM CDT [facility] RED BLOOD COUNT 3.18(L) 4.30 - 5.90 mil/cu mm 05/20/2025 7:41 AM CDT [facility] HEMOGLOBIN 9.3(L) 13.5 - 17.5 g/dL 05/20/2025 7:41 AM CDT [facility] HEMATOCRIT 29.0(L) 37.0 - 53.0 % 05/20/2025 7:41 AM CDT [facility] MCV 91 80 - 100 fL 05/20/2025 7:41 AM CDT [facility] MCH 29.2 26.0 - 34.0 pg 05/20/2025 7:41 AM CDT [facility] MCHC 32.1 32.0 - 36.0 g/dL 05/20/2025 7:41 AM CDT [facility] RDW 15.3 11.5 - 15.5 % 05/20/2025 7:41 AM CDT [facility] PLATELET COUNT 241 140 - 440 thou/cu mm 05/20/2025 7:41 AM CDT [facility] MPV 10.7 6.5 - 11.0 fL 05/20/2025 7:41 AM CDT [facility] NRBC 0.0 % 05/20/2025 7:41 AM CDT [facility] ABS NRBC 0.0 thou /cu mm 05/20/2025 7:41 AM CDT [facility] Blood BLOOD SPECIMEN / Unknown Butterfly / Unknown 05/20/2025 7:15 AM CDT 05/20/2025 7:30 AM CDT Prince Carson NP HEMATOLOGY Final Result Performing Organization Address [facility]/ZIP Co de Phone Number [facility] [address] [place] [address], [place] * MAGNESIUM (05/19/2025 7:35 AM CDT) Only the most recent of4 resultswithin the time period is included. MAGNESIUM 1.8 1.6 - 2.4 mg/dL 05/19/2025 8:06 AM CDT [facility] Blood BLOOD SPECIMEN / Unknown Venipuncture / Unknown 05/19/2025 7:35 AM CDT 05/19/2025 7:42 AM CDT Sarkis Edge RN CHEMISTRY Final Result Performing Organization Address City/[facility]/ZIP Co de Phone Number [facility] [address] [address], [place] * SCAN-CARDIAC STRIP (05/19/2025 3:18 AM CDT) Scanner OTHER Final Result * SCAN CORRESP-EKG RESULTS (05/18/2025 11:59 AM CDT) Narrative 05/18/2025 11:59 AM CDT Ordered by an unspecified provider. Other Clinical Staff OTHER Final Resul t * (ABNORMAL) WBC TODAY (05/18/2025 8:39 AM CDT) WHITE BLOOD COUNT 12.1(H) 4.5 - 11.0 thou/cu mm 05/18/2025 9:12 AM CDT [facility] NRBC 0.0 % 05/18/2025 9:12 AM CDT [facility] ABS NRBC 0.0 thou /cu mm 05/18/2025 9:12 AM CDT [facility] Blood BLOOD SPECIMEN / Unknown Butterfly / Unknown 05/18/2025 8:39 AM CDT 05/18/2025 8:56 AM CDT us Mello Casanova MD HEMATOLOGY Final Result [facility] [address] [place] [address], [place] * (ABNORMAL) PRO-BNP (05/18/2025 8:39 AM CDT) PRO-BNP 7,429(H) <450 pg/mL 05/18/2025 9:39 AM CDT [facility] Blood BLOOD SPECIMEN / Unknown Butterfly / Unknown 05/18/2025 8:39 AM CDT 05/18/2025 8:56 AM CDT Narrative [facility] - 05/18/2025 9:39 AM CDT The [...] SEND OUTS Final Result Performing Organization Address [facility] Co de Phone Number [facility] [address] [address], [place] * SCAN-CARDIAC STRIP (05/18/2025 1:26 AM CDT) us Scanner OTHER Final Result * SCAN-CARDIAC STRIP (05/17/2025 2:13 PM CDT) us Scanner OTHER Final Result * (ABNORMAL) HEMOGLOBIN (05/17/2025 3:42 AM CDT) [facility] HEMOGLOBIN 9.4(L) 13.5 - 17.5 g/dL 05/17/2025 3:56 AM CDT [facility] [employer] MCV 92 80 - 100 fL 05/17/2025 3:56 AM CDT [facility] Blood BLOOD SPECIMEN / Unknown Venipuncture / Unknown 05/17/2025 3:42 AM CDT 05/17/2025 3:51 AM CDT us Roseanne Parson MANUFACTURING ENGINEERING DIRECTOR HEMATOLOGY Final Res ult Performing Organization Address [facility] Co de Phone Number [facility] [address] [address], [place] * SCAN-CARDIAC STRIP (05/17/2025 3:35 AM [...] administration of 20 mL Clariscan. MRA head: Udrz-yt-crceth imaging. MRA neck: Cqyo-kq-qqzcgt and postcontrast imaging following intravenous administration of [...] and postcentral gyri and left occipital lobe. Praq-tu-rzpxtkon diffuse cerebral volume loss. No midline shift. Patchy FLAIR hyperintensities in the supratentorial white matter, typical for cymw-xk-vdunjblk chronic microvascular ischemic changes. 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 No pathologic intracranial enhancement. The major arterial flow voids of the skull base are preserved. Thinning of the ocular lenses. Mild left maxillary sinus mucosal thickening. Mastoid air cells are clear. MRA head: The internal carotid, middle cerebral, and anterior cerebral arteries are patent. Cmir-di-lclxzvif right and mild left cavernous internal carotid [...] the right basal ganglia and cerebellum. 3. Rpgy-wg-uhalqbpi diffuse cerebral volume loss and chronic microvascular ischemic changes. MRA head/neck: 1. Intracranial atherosclerotic disease, including bggb-yg-adtdrvlm right and mild left cavernous internal carotid [...] administration of 20 mL Clariscan. MRA head: Muhv-qv-wxgdll imaging. MRA neck: Fmml-mw-qqswmw and postcontrast imaging following intravenous administration of [...] and postcentral gyri and left occipital lobe. Gcls-eq-nnmmhzej diffuse cerebral volume loss. No midline shift. Patchy FLAIR hyperintensities in the supratentorial white matter, typical for scin-ju-iupsnshy chronic microvascular ischemic changes. 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 No pathologic intracranial enhancement. The major arterial flow voids of the skull base are preserved. Thinning of the ocular lenses. Mild left maxillary sinus mucosal thickening. Mastoid air cells are clear. MRA head: The internal carotid, middle cerebral, and anterior cerebral arteries are patent. Yetf-dl-gtcwvrbt right and mild left cavernous internal carotid [...] the right basal ganglia and cerebellum. 3. Hjqr-ab-rwuskzux diffuse cerebral volume loss and chronic microvascular ischemic changes. MRA head/neck: 1. Intracranial atherosclerotic disease, including lhck-qm-tphqlraw right and mild left cavernous internal carotid [...] administration of 20 mL Clariscan. MRA head: Mvrg-rn-fhwgcd imaging. MRA neck: Jtes-yk-odgnjc and postcontrast imaging following intravenous administration of [...] and postcentral gyri and left occipital lobe. Wynk-uj-cjatyguf diffuse cerebral volume loss. No midline shift. Patchy FLAIR hyperintensities in the supratentorial white matter, typical for dukh-zl-ahyimmov chronic microvascular ischemic changes. 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 No pathologic intracranial enhancement. The major arterial flow voids of the skull base are preserved. Thinning of the ocular lenses. Mild left maxillary sinus mucosal thickening. Mastoid air cells are clear. MRA head: The internal carotid, middle cerebral, and anterior cerebral arteries are patent. Uwck-qk-nijdhxje right and mild left cavernous internal carotid [...] the right basal ganglia and cerebellum. 3. Wmys-rr-ufovridk diffuse cerebral volume loss and chronic microvascular ischemic changes. MRA head/neck: 1. Intracranial atherosclerotic disease, including olcq-kn-wndziymu right and mild left cavernous internal carotid artery stenosis as well as moderate stenosis of the posterior cerebral artery P2 segments. 2. Atherosclerotic irregularity of the proximal cervical internal carotid arteries without hemodynamically significant luminal narrowing. Dictated by Leobardo Tracey MD @ 05/16/2025 5:26:50 PM (Electronically Signed) Procedure Note Leobardo Tracey MD - 05/16/2025 For Patients: As a result of the 21st Century Cures Act, medical imagingexams and procedure reports are released immediately into your electronicmedical record. You may view this report before your referring provider.If you have questions, please contact your health care provider. Indication: Evaluate cerebrovascular disease or ischemia. Technique: MRI brain: Multiplanar multisequence MR imaging of the brain prior to andfollowing intravenous administration of 20 mL Clariscan. MRA head: Itdc-co-eykuef imaging. MRA neck: Nkhg-uq-poisue and postcontrast imaging following intravenousadministration of 20 [...] and postcentral gyri and left occipital lobe. Phsq-qx-gszzmibp diffuse cerebral volume loss. No midline shift. PatchyFLAIR hyperintensities in the supratentorial white matter, typical hhikoif-tt-mejaojtf chronic microvascular ischemic changes. Chronicinfarctions in the right basal ganglia and cerebellar hemispheres. No pathologic intracranial enhancement. The major arterial flow voids of the skull base are preserved. Thinning ofthe ocular lenses. Mild left maxillary sinus mucosal thickening. Mastoidair cells are clear. MRA head: The internal carotid, middle cerebral, and anterior cerebral arteries arepatent. Vzzg-bv-neaxrewv right and mild left cavernous internal carotidartery [...] is dominant. The vertebral artery origins and C9rmndmnuw are suboptimally evaluated. The vertebral arteries are otherwisewidely patent. Impression: MRI brain: 1. Moderate acute to early subacute left middle cerebral artery territoryinfarction. 2. 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 3. Dduf-hl-jpoiikhp diffuse cerebral volume loss and chronic microvascularischemic changes. MRA head/neck: 1. Intracranial atherosclerotic disease, including eybn-tv-zdsqbihd rightand mild left cavernous internal carotid artery [...] 05/16/2025 3:36 PM CDT ECHOCARDIOGRAM BECCA Ng [facility] : 1935 89 years Study Date: 05/16/2025 2:24:46 PM Gender: M BP: 136/63 mmHg Height: 177.00 cm BSA: 2.07 m Weight: 90.00 kg Tech: ROSA Allison MD: CLARITA PINO Site: [facility] Reading Location: ANW IP Patient Location: Inpatient. Procedure: 2D w/ Contrast, [...] documentation: 2 ml diluted Definity, lot #[id number], [facility] 2001# [id number] was administered peripherally to enhance visualization of all left ventricular segments. . This study was interpreted by an [facility] accredited facility. Final Procedure Note Brooke Joshua MD - 05/16/2025 ECHOCARDIOGRAM BECCA Ng [facility] : 1935 89 years Study Date: 05/16/2025 2:24:46 PM Gender: M BP: 136/63 mmHg Height: 177.00 cm BSA: 2.07 m Weight: 90.00 kg Tech: ORSA Referring MD: CLARITA PINO Site: [facility] Reading Location: ANW IP Patient Location: Inpatient. Procedure: 2D w/ Contrast, [...] documentation: 2 ml diluted Definity, lot #[id number], [facility] 2001#[id number] was administered peripherally to enhance visualization of allleft ventricular segments. . This study was interpreted by an [facility] accredited facility. Final us Clarita Pino MD [...] @ May 16 2025 1:57PM (Electronically Signed) [email or web address] Narrative 05/16/2025 1:57 PM CDT For Patients: [...] @ May 16 2025 1:57PM (Electronically Signed) [email or web address] Roseanne Parson MANUFACTURING ENGINEERING DIRECTOR GENERAL IMAGING Final Res ult * XR HUMERUS MIN 2 VIEWS RIGHT PORTABLE (05/16/2025 11:01 AM CDT) Anatomical Region Laterality Modality HUMERI, HUMERUS R [employer] ángela 05/16/2025 1:55 PM CDT Impressions 05/16/2025 1:55 PM CDT 1. Soft tissue swelling. 2. Negative right humerus. Dictated by Nash Brunner MD @ May 16 2025 1:55PM (Electronically Signed) [email or web address] Narrative 05/16/2025 1:55 PM CDT For Patients: [...] @ May 16 2025 1:55PM (Electronically Signed) [email or web address] Roseanne Parson MANUFACTURING ENGINEERING DIRECTOR GENERAL IMAGING Final Res ult * (ABNORMAL) Hemoglobin A1C Screening (05/16/2025 7:42 AM CDT) HEMOGLOBIN A1C SCREENING 7.5(H) <=6.4 % 05/16/2025 4:09 PM CDT [facility] Blood BLOOD SPECIMEN / Unknown Non-Lab Venipuncture / Unknown 05/16/2025 7:42 AM CDT 05/16/2025 7:49 AM CDT Narrative [facility] - 05/16/2025 4:09 PM CDT (<5.7%) Normal (5.7% to 6.4%) Indicates prediabetes (>=6.5%) Confirms diabetes Falsely low levels may be seen with: Recent Transfusion, Recent Significant Blood Loss, Hemolytic Diseases, or Falsely elevated levels may be seen with: Untreated Anemias, Splenectomy Clarita Pino MD CHEMISTRY F inal Result Performing Organization Address City/[facility]/ZIP Co de Phone Number [facility] [address] [place] [address], [place] * aPTT (05/16/2025 7:42 AM CDT) Pathologist [facility] APTT 28 25 - 36 sec 05/16/2025 8:08 AM CDT [facility] Blood BLOOD SPECIMEN / Unknown Non-Lab Venipuncture / Unknown 05/16/2025 7:42 AM CDT 05/16/2025 7:49 AM CDT Narrative [facility] - 05/16/2025 8:08 AM CDT Therapeutic Range: 59-89 seconds us Clarita Pino MD HEMATOLOGY F inal Result [facility] [address] [place] [address], * (ABNORMAL) Protime - INR (05/16/2025 7:42 AM CDT) Pathologist [facility] INR 1.1 <1.3 05/16/2025 8:08 AM CDT [facility] PROTIME 13.0(H) 10.6 - 12.4 sec 05/16/2025 8:08 AM CDT [facility] Blood BLOOD SPECIMEN / Unknown Non-Lab Venipuncture / Unknown 05/16/2025 7:42 AM CDT 05/16/2025 7:49 AM CDT [facility] - 05/16/2025 8:08 AM CDT Therapeutic Range [...] Clarita Pino MD HEMATOLOGY F inal Result [facility] [address] [place] [address], * Lipid Panel (05/16/2025 7:42 AM CDT) [facility] CHOLESTEROL,TOTAL 104 100 - 199 mg/dL 05/16/2025 8:36 AM T [facility] Comment: Cholesterol, Total Reference Ranges Desirable <200 mg/dL Borderline 200-239 mg/dL High >=240 mg/dL TRIGLYCERIDES 49 <150 mg/dL 05/16/2025 8:36 AM CDT [facility] HDL CHOLESTEROL 51 >40 mg/dL 8:36 AM T [facility] NON-HDL CHOLESTEROL 53 <145 mg/dl 05/16/2025 8:36 AM T [facility] CHOL/HDL RATIO 2.04 <4.50 05/16/2025 8:36 AM CDT [facility] LDL CHOLESTEROL 43 <=130 mg/dL 05/16/2025 8:36 AM CDT [facility] VLDL CHOLESTEROL 10 <=30 mg/dL 05/16/2025 8:36 AM CDT [facility] PROVIDER ORDERED STATUS RANDOM 05/16/2025 8:36 AM CDT [facility] Blood BLOOD SPECIMEN / Unknown Non-Lab Venipuncture / Unknown 05/16/2025 7:42 AM CDT 05/16/2025 7:49 AM CDT us Clarita Pino MD CHEMISTRY F inal Result [facility] 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 Description: The patient was placed in [...] for the patient record. A 90 cm Social IQ (Social Influence Quotient) Max catheter was advanced over an 035 [...] MEDICARE PART B HB ONLY [place] BL[place] MR PB ONLY [place] HB ONLY MES REFERRAL Member Subscriber Plan / Payer (Ef fective 2025-Present) Name:Becca Zamora Relation to Subscriber:Self Name:Becca Zamora Payer ID:Not on file Group ID:Not on file Type:Not on file Address: FOR [employer] Advance Directives * Full Code (Latest Code Status on File) Date Activated Date Inactivated Comments 05/19/2025 6:04 PM 06/01/2025 12:12 PM Question Answer Comments Code Status Discussion: Reviewed Preferences * Full Code Date Activated Date Inactivated Comments 05/15/2025 10:42 PM 05/19/2025 5:26 PM Question Answer Comments Code Status Discussion: Reviewed Preferences * Full Code Date Activated Date Inactivated Comments 11/15/2019 5:58 PM 11/21/2019 1:25 PM Question Answer Comments Code Status Discussion: Not Discussed * Full Code Date Activated Date Inactivated Comments 06/03/2019 3:33 PM 06/04/2019 7:18 PM Question Answer Comments Code Status Discussion: Not Discussed Care Teams Office Machines Teacher Relationship Specialty Start Date End Date Pcp, No . PCP - General 05/18/25
--- NOTE | 2025-06-09 20:12 | CRLHL7_ITS ---
For Patients: As a result of the Century Cures Act, medical imaging exams and procedure reports are released immediately into your electronic medical record. You may view this report before your referring provider. If you have questions, please contact your health care provider. INDICATION: Stroke, followup. COMPARISON: 05/15/2025. TECHNIQUE: Noncontrast CT head. FINDINGS: Moderate generalized volume loss. There is focal low attenuation change of the left frontal lobe and extending into the left subinsular white matter and basal ganglia consistent with subacute to chronic infarct. This is consistent with the site of the left MCA occlusion as seen on previous CTA. Stable old infarcts of the right cerebellum. No new intracranial hemorrhage. No new infarcts. No midline shift. No abnormal ventricular dilatation. Basilar cisterns are patent. Normal calvarium and skull base. Visualized paranasal sinuses mastoid air cells are clear. Normal orbits bilaterally. IMPRESSION: 1. 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 This is consistent with the findings of the previous CTA. 2. No new intracranial hemorrhage. No new infarcts. Please note that all CT scans at this facility use dose modulation, iterative reconstruction, and/or weight-based dosing when appropriate to reduce radiation dose to as low as reasonably achievable. Dictated by Quincy Mcgowan MD @ 06/09/2025 8:49:34 PM (Electronically Signed)
[2025-06-09 20:29] LABS: Hematocrit 24.5 % (37.0-53.0); Immature Granulocytes Pct Auto 0.2 %; Mean Corpuscular HGB Conc 31 gm/dL (32-36); Mean Corpuscular Hemoglobin 30 pg (26-34); Mean Corpuscular Volume 98 fL (80-100); RDW Coefficient of Variation % 17.9 % (11.5-15.5); Red Blood Count 2.51 m/uL (4.30-5.90); White Blood Count* 11.46 K/uL (4.50-11.00)
[2025-06-09 20:31] LABS: Immature Granulocytes Abs Auto 0.00 K/uL (0.00-0.30)
[2025-06-09 20:32] LABS: Hemoglobin* 7.6 gm/dL (13.5-17.5); Lymphocytes Absolute Auto 0.40 K/uL (0.90-2.90); Slide Review Reflex No
[2025-06-09 20:40] LABS: Albumin* 3.9 g/dL (3.3-5.0); Chloride* 109 mmol/L (96-114); Potassium* 4.9 mmol/L (3.6-5.1); Sodium* 139 mmol/L (135-149)
[2025-06-09] MEDS: 0.9 % SODIUM CHLORIDE 500 ML 500 ML IV (20:40)
[2025-06-09 20:42] LABS: Blood Urea Nitrogen* 36 mg/dL (7-30); Creatinine* 1.6 mg/dL (0.5-1.5); Estimated Glomerular Filt Rate 41 ml/min
[2025-06-09 20:43] LABS: Alanine Aminotransferase* 28 U/L (4-50); Alkaline Phosphatase* 90 U/L (40-150); Anion Gap 7 mEq/L (7-15); Aspartate Amino Transferase* 32 U/L (12-35); Bilirubin Direct* 0.1 mg/dL (0.0-0.5); Bilirubin Total* 0.7 mg/dL (0.1-1.5); Calcium* 9.1 mg/dL (8.4-10.6); Carbon Dioxide* 23 mmol/L (20-32); Glucose* 227 mg/dL (60-115); Total Protein* 6.6 g/dL (6.0-8.3)
[2025-06-09 20:51] LABS: Troponin, Point-of-Care* 0.05 ng/ml (0.01-0.04)
--- NOTE | 2025-06-09 21:05 | ED.GENADULT ---
HPI - General Adult General Chief complaint: Weakness Stated complaint: unspecified complaint Time Seen by Provider: 06/09/25 20:10 History of Present Illness HPI narrative: [age] year white male who was recently hospitalized at [facility] for a significant stroke the patient over the last couple of days has had more confusion, he has been running a little bit lower O2 sat. He is full code by his chart review. He has had no history of bleeding but they did some blood work yesterday and noted that his hemoglobin was 7.4. Since he has been more symptomatic they sent him to the hospital. He was brought in by EMS. As mention use full code his O2 sat on presentation was 87%. His hemoglobin was 7-1/2. Denies symptoms. No chest pain, no shortness of breath no breathing problem. He is quite pale. He has been more confused per staff than in the past and a little more hypoxic. 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 Related Data Home Medications ?Medication ?Instructions ?Recorded ?Confirmed amlodipine 10 mg PO DAILY 05/15/25 05/15/25 glipizide 10 mg PO DAILY 05/15/25 05/15/25 insulin glargine subcut 05/15/25 losartan 25 mg tablet (Cozaar) 25 mg PO DAILY 05/15/25 05/15/25 metformin 1,000 mg PO BID 05/15/25 05/15/25 rosuvastatin 20 mg tablet (Crestor) 20 mg PO DAILY 05/15/25 05/15/25 Allergies Allergy/AdvReac Type Severity Reaction Status Date / Time No Known Drug Allergies Allergy Verified 05/15/25 19:15 Review of Systems Status of ROS: Reports: 6 or more systems reviewed and unremarkable except as noted in History and below PFSH PFS Social History Smoking Status: Unknown if ever smoked Exam Narrative: Exam Narrative: Objective patient's temp is 99? pulse 74 and regular blood pressure 142/64 O2 sat is 87% on room air Patient is very pale, he is alert orient x2, not to time. HEENT shows no facial asymmetry open his eyes mouth appears somewhat dry neck is supple , chest is clear, abdomen is benign soft, extremities is moving all his extremities they are slightly swollen in the legs. Const: Vital Signs, click to edit/add: Vital Signs - 24 hr 06/09/25 20:05 06/09/25 20:08 Temperature 99.2 F Pulse Rate [Pulse Oximeter] 74 Respiratory Rate 24 Blood Pressure [Ri ght Upper Arm] 142/64 H Pulse Oximetry 87 L 92 Oxygen Delivery Me thod Room Air Nasal Cannula Oxygen Flow Rate 2 Course Vital Signs Vital signs: Initial Vital Signs Temperature 99.2 F 06/09/25 20:05 Temperature Source Temporal Artery Scan 06/09/25 20:05 Pulse Rate 74 06/09/25 20:05 Respiratory Rate 24 06/09/25 20:05 Blood Pressure 142/64 H 06/09/25 20:05 Blood Pressure Mean 90 06/09/25 20:05 Blood Pressure Position Sitting 06/09/25 20:05 Pulse Oximetry 87 L 06/09/25 20:05 Oxygen Delivery Method Room Air 06/09/25 20:05 Vital Signs Temperature 99.2 F 06/09/25 20:05 Pulse Rate 74 06/09/25 20:05 Respiratory Rate 24 06/09/25 20:05 Blood Pressure 142/64 H 06/09/25 20:05 Pulse Oximetry 87 L 06/09/25 20:05 Oxygen Delivery Method Room Air 06/09/25 20:05 Temperature 99.2 F 06/09/25 20:05 Pulse Rate 74 06/09/25 20:05 Respiratory Rate 24 06/09/25 20:05 Blood Pressure 142/64 H 06/09/25 20:05 Pulse Oximetry 92 06/09/25 20:08 Oxygen Delivery Method Nasal Cannula 06/09/25 20:08 Oxygen Flow Rate 2 06/09/25 20:08 Medications Administered Medications: Discontinued Medications Generic Name Dose Route Start Last Admin Trade Name Freq PRN Reason Stop Dose Admin Sodium Chloride 500 mls @ 500 mls/hr 06/09/25 20:12 06/09/25 20:40 0.9 % Sodium Chloride 500 Ml IV 06/09/25 21:11 500 mls/hr .Q1H ONE Administration Medical Decision Making MDM Narrative Medical decision making narrative: [age] year white male with a full code status, status post stroke in April treated at [facility]. Patient has had increasing confusion weakness, hypoxia. He is quite anemic at this point. He has run chronic low hemoglobins but this is the lowest he has run. I think it be reasonable to check his neck stool for guaiac, would admit him to the hospital for transfusion. I think that actually might help his confusion as well as his weakness. Certainly could help as a proxy as well. A CT scan of her head was ordered there was findings of subacute low focus changes of infarct in the left MCA distribution consistent with the findings of the previous CTA no new intracranial hemorrhage or infarcts. Patient's point of care troponin is borderline, likely related to his renal function. Think it would be worth trying to transfuse him and see if we can get him improved finish checking the rest of his electrolytes and labs. Give him some IV hydration. Have checked with nursing supervisor lathing staff who think that transfusion could be accomplished on the floor and that is the usual protocol. Will discuss with hospitalist. The patient did have a chest x-ray yesterday that showed apparently cardiomegaly but no acute infiltrate or evidence of failure. Lab Data Labs: Lab Results 06/09/25 06/09/25 06/09/25 Range/Units 20:00 20:10 20:57 WBC 11.46 H Cancelled (4.50-11.00) K/uL Corrected WBC Cancelled RBC 2.51 L Cancelled (4.30-5.90) m/uL Hgb 7.6 L* Cancelled (13.5-17.5) gm/dL Hct 24.5 L Cancelled (37.0-53.0) % MCV 98 Cancelled (80-100) fL MCH 30 Cancelled (26-34) pg MCHC 31 L Cancelled (32-36) gm/dL RDW Coeff of Margo 17.9 H Cancelled (11.5-15.5) % Plt Count 345 Cancelled (140-440) K/uL Neut % (Auto) 90.1 H Cancelled (42.0-72.0) % Lymph % (Auto) 3.4 L Cancelled (20-44) % [place] % (Auto) 5.9 Cancelled (0.0-11.0) % Eos % (Auto) 0.2 Cancelled (0.0-7.0) % Baso % (Auto) 0.2 Cancelled (0.0-3.0) % Neut # (Auto) 10.30 H Cancelled (1.7-7.0) K/uL Lymph # (Auto) 0.40 L Cancelled (0.90-2.90) K/uL [place] # (Auto) 0.70 Cancelled (0.00-0.90) K/UL Eos # (Auto) 0.00 Cancelled (0.00-0.50) K/uL Baso # (Auto) 0.00 Cancelled (0.00-0.30) K/uL Abs Immat Gran (auto) 0.00 Cancelled (0.00-0.30) K/uL Imm/Tot Granulo (auto) 0.2 Cancelled % Sodium 139 Cancelled (135-149) mmol/L Potassium 4.9 Cancelled (3.6-5.1) mmol/L Chloride 109 Cancelled (96-114) mmol/L Carbon Dioxide 23 Cancelled (20-32) mmol/L Anion Gap 7 Cancelled (7-15) mEq/L BUN 36 H Cancelled (7-30) mg/dL Creatinine 1.6 H Cancelled (0.5-1.5) mg/dL Estimated Creat Clear Cancelled Estimated GFR 41 Cancelled ml/min Glucose 227 H Cancelled (60-115) mg/dL Calcium 9.1 Cancelled (8.4-10.6) mg/dL Total Bilirubin 0.7 (0.1-1.5) mg/dL Direct Bilirubin 0.1 (0.0-0.5) mg/dL AST 32 (12-35) U/L ALT 28 (4-50) U/L Alkaline Phosphatase 90 (40-150) U/L Total Protein 6.6 (6.0-8.3) g/dL Albumin 3.9 (3.3-5.0) g/dL POC Troponin I 0.05 H (0.01-0.04) ng/ml Discharge Plan Discharge Clinical Impression: Anemia, Weakness, Hypoxia Patient Disposition: Admitted As Observation
--- NOTE | 2025-06-09 21:28 | CRLHL7_ITS ---
For Patients: As a result of the Century Cures Act, medical imaging exams and procedure reports are released immediately into your electronic medical record. You may view this report before your referring provider. If you have questions, please contact your health care provider. Indication: Weakness Technique: Single view of the chest Comparison: None Findings/Impression: Heart failure and pulmonary edema. Superimposed left basilar pneumonia not excluded. Dictated by Ulysses Christensen MD @ 06/09/2025 10:52:52 PM (Electronically Signed)
[2025-06-09 21:41] LABS: NT Pro B Type NatriureticPept* 7580 pg/mL (See Note)
--- NOTE | 2025-06-09 22:14 | PC.NURSE ---
Pt arrived to floor. Pt undressed taking pants and leg wraps off. Note large purple hard to touch bruise right hip extending in right groin. Pt unsure how he got this. Incontinent of urine in attends-coccyx intact. Note +3 LE edema.
--- NOTE | 2025-06-09 22:21 | CRLHL7_ITS ---
For Patients: As a result of the Century Cures Act, medical imaging exams and procedure reports are released immediately into your electronic medical record. You may view this report before your referring provider. If you have questions, please contact your health care provider. Indication: Right hip/groin bruising, unknown if trauma, concern for bleed Technique: CT of the pelvis following 104 mL Isovue 370 IV contrast. Comparison: None Findings: Bones: No acute fracture. No lytic or blastic lesion. Joints: Left hip replacement. 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 No acute malalignment. No large effusion. Soft tissues: Mild bilateral flank edema. Possible thrombosed pseudoaneurysm noted along the right common femoral artery, no prior examination available for comparison. Consider ultrasound. Fat containing left inguinal hernia. Large bladder calculus with eccentric irregular areas of bladder wall thickening. Prostatomegaly. Impression: 1. Mild soft tissue edema with no organized hematoma or acute fracture or malalignment appreciated. 2. 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 Ultrasound would be recommended for further evaluation. 3. Large bladder calculus with eccentric irregular areas of bladder wall thickening. Differential includes chronic cystitis and neoplasm. Please note that all CT scans at this facility use dose modulation, iterative reconstruction, and/or weight-based dosing when appropriate to reduce radiation dose to as low as reasonably achievable. Dictated by Ulysses Christensen MD @ 06/10/2025 12:10:20 AM (Electronically Signed)
--- NOTE | 2025-06-09 22:33 | PM.IMHP1 ---
Assessment and Plan Assessment and plan (1) Anemia: Problem comment: Hemoglobin 7.6, 7.7 on 09/06/2025 Suspect acute blood loss anemia No occult bleeding noted/reported S/p CVA, recently on aspirin, transitioned to apixaban 5 mg b.i.d. on 05/23/2025 - HOLD Bruising over right hip and groin noted on admission. Patient unable to tell us if he has had a fall/trauma - CT pelvis ordered 2 units PRBC ordered in ED, 1 dose Lasix ordered between units, recheck hemoglobin following transfusion FOBT ordered, UA ordered SCDs for VTE PPX Status: Acute (2) Acute hypoxic respiratory failure: Problem comment: O2 saturations 87% in ED In setting of acute anemia, hemoglobin 7.6 Recent episode hypoxia during April hospitalization requiring 6 L O2 CXR ordered -shows Heart failure and pulmonary edema. Superimposed left basilar pneumonia not excluded. Continue oxygen supplementation to maintain saturations 92%, weaning as able VBG ordered BNP 7580 in ED, most recent 7400 Lasix held (in setting of VLAD) upon admission to TCU with restart date of 06/10/2025 Start Lasix 20 mg IV b.i.d., adjusting dose is necessary, monitoring renal function Strict I&Os, daily weights RT consult Echocardiogram 05/16/25 Final Impressions: 1. Normal left ventricular size, mildly increased wall thickness, normal global systolic function, calculated EF of 69 %. No LV thrombus. 2. Severely enlarged left atrium. 3. Right ventricular cavity size is normal, global systolic RV function is normal. Pacing leads noted. 4. The aortic valve is sclerotic, trileaflet and calcified, no stenosis and trivial regurgitation. 5. The inferior vena cava is dilated, respiratory size variation less than 50%. 6. Severe MAC present. 7. Echo contrast was administered to enhance visualization of all left ventricular segments. Status: Acute (3) Weakness: Problem comment: PT/OT consult Status: Acute (4) Leukocytosis: Problem comment: WBC 11.46, neutrophils 10. Afebrile. CRP and procalcitonin ordered. UA ordered CXR shows Heart failure and pulmonary edema. Superimposed left basilar pneumonia not excluded Empirically start cefepime given recent prolonged hospitalization and TCU stay Status: Acute (5) Elevated troponin: Problem comment: Troponin 0.08 in ED EKG shows paced rhythm Most likely leak in setting of acute anemia, acute on chronic kidney disease, chronic elevated BNP Repeat 2 hour troponin ordered patient biller Status: Acute (6) Atrial fibrillation: Problem comment: Previously chronically anticoagulated but discontinued Eliquis on his own due to cost Metoprolol 12.5 mg b.i.d. added on 05/21/2025 Apixaban 5 mg b.i.d. restarted on 05/23/2025 - HOLD patient biller SCDs for VTE PPX Status: Chronic (7) Cardiac pacemaker: Problem comment: History of AFib, flutter, intermittent complete heart block, ventricular tachycardia Status: Acute (8) Hypertension: Problem comment: Home medications include amlodipine 10 mg, losartan 25 mg, metoprolol 12.5 mg b.i.d., Lasix Pharmacy to confirm Status: Chronic (9) CVA (cerebral vascular accident): Problem comment: 05/15/2025 CTA showed left distal M1 occlusion, started on TNK, transferred to [facility]. MRI showed infarct in the left MCA territory Right hemiparesis, right facial droop, right hemianopsia, right neglect, aphasia, dysphagia Discharged to [facility] for rehab on 06/01/2025 Was on aspirin, transitioned to apixaban 05/23/2025, rosuvastatin PT/OT consult Status: Acute (10) Diabetes mellitus type 2, insulin dependent: Problem comment: Lantus increased to 18 units at bedtime 05/25/2025 - 9 units ordered on admission, adjust as necessary Hold home glipizide Hold home metformin 1000 mg b.i.d. Glucose checks ACHS, insulin sliding scale, hypoglycemia protocol Status: Chronic (11) CKD stage 3b, GFR 30-44 ml/min: Problem comment: Creatinine 1.6, baseline 1.3-1.5 Potassium 4.9, BUN 36 Avoid nephrotoxic medications, continuing home medications for now, continue to monitor Status: Acute (12) (HFpEF) heart failure with preserved ejection fraction: Problem comment: BNP slightly up 7580, previously 7400 CXR shows heart failure and pulmonary edema Restart Lasix b.i.d., adjusting doses necessary, monitoring renal function Strict I&Os, daily weights Echocardiogram 05/16/25 Final Impressions: 1. Normal left ventricular size, mildly increased wall thickness, normal global systolic function, calculated EF of 69 %. No LV thrombus. 2. Severely enlarged left atrium. 3. Right ventricular cavity size is normal, global systolic RV function is normal. Pacing leads noted. 4. The aortic valve is sclerotic, trileaflet and calcified, no stenosis and trivial regurgitation. 5. The inferior vena cava is dilated, respiratory size variation less than 50%. 6. Severe MAC present. 7. Echo contrast was administered to enhance visualization of all left ventricular segments. Status: Acute (13) Hyperlipidemia: Problem comment: Continue Crestor Status: Chronic (14) Pneumonia: Problem comment: Suspected, acute hypoxic respiratory failure CXR shows that superimposed left basilar pneumonia cannot be excluded. Leukocytosis with left shift. Procalcitonin, CRP pending Empirically starting cefepime 2 g IV q.8 hours given recent prolonged hospitalization and TCU stay Status: Acute (15) Confusion: Problem comment: Per EMR, report of cognitive issues at baseline. PCP notes concern for memory loss 05/09/2025. Orders for outpatient cognitive evaluation noted CT head today shows no new hemorrhage or infarcts Monitor for delirium Status: Acute Total Time Spent Total Time Spent: Today I spent 75 minutes seeing the patient, reviewing Expanse and EPIC notes/diagnostics, discussing the care plan with our care time that includes social work, PT/OT, pharmacy, RT, fci and documenting my impressions and plan in the medical record. Hospitalist- H&P: HPI History of Present Illness Date Seen: 06/09/25 Chief complaint: unspecified complaint Narrative: Jean Claude Zamora is a 89 year old male past medical history significant for insulin-dependent T 2D, lipidemia, hypertension, atrial fibrillation previously on chronic anticoagulation, incomplete heart block, s/p cardiac pacemaker, CKD stage 3, HFpEF, recent CVA with hospitalization 05/15-06/01 is admitted to the medical floor from the ED with hypoxia, anemia. Patient is seen sitting reclined in bed. Currently not a great historian. His is not bedside. History is obtained from ED provider as well as recent records and [facility]. Patient has been noted to be more confused over the last several days. Saturations have been noted to be lower, 87% in the ED. his hemoglobin in the ER is noted to be 7.6 but there has been no report of isra bleeding. Currently, patient tells me he has no headache or dizziness. Denies chest pain. Does not feel short of breath but has oxygen in place. Denies recent cough or cold symptoms. No fevers have been reported. He currently denies abdominal pain, nausea. No recent reported vomiting or diarrhea. There is a bruise noted over his right hip and into his groin but patient does not know whether not he has fallen. His recent CVA has left him with right hemiplegia, aphasia. PCP is Brionna Thapa CNP. Patient tells me he does not smoke or drink. Per his records he is a full code. Review of Systems Narrative: REVIEW OF SYSTEMS: Complete review of systems performed and negative unless otherwise stated in HPI or below. Patient is not a reliable historian at this time. Medical Decision Making Medical Decision Making Code Status: Per EMR, patient is a full code [facility] Medical History Hyperlipidemia ?E78.5 - Hyperlipidemia, unspecified (ICD-10) Acute hypoxic respiratory failure ?J96.01 - Acute respiratory failure with hypoxia (ICD-10) (HFpEF) heart failure with preserved ejection fraction ?I50.30 - Unspecified diastolic (congestive) heart failure (ICD-10) Cardiac pacemaker ?Z95.0 - Presence of cardiac pacemaker (ICD-10) CKD stage 3b, GFR 30-44 ml/min ?N18.32 - Chronic kidney disease, stage 3b (ICD-10) Diabetes mellitus type 2, insulin dependent ?E11.9 - Type 2 diabetes mellitus without complications (ICD-10) ?Z79.4 - senior living (current) use of insulin (ICD-10) CVA (cerebral vascular accident) ?I63.9 - Cerebral infarction, unspecified (ICD-10) Intermittent complete heart block ?I44.2 - Atrioventricular block, complete (ICD-10) Hypertension ?I10 - Essential (primary) hypertension (ICD-10) Atrial fibrillation ?I48.91 - Unspecified atrial fibrillation (ICD-10) Social History Smoking Status: Unknown if ever smoked Non-prescribed substance use: denies use Meds Home Medications and Allergies Home Medications ?Medication ?Instructions ?Recorded ?Confirmed ?Type amlodipine 10 mg PO DAILY 05/15/25 05/15/25 History glipizide 10 mg PO DAILY 05/15/25 05/15/25 History insulin glargine subcut 05/15/25 History losartan 25 mg tablet (Cozaar) 25 mg PO DAILY 05/15/25 05/15/25 History metformin 1,000 mg PO BID 05/15/25 05/15/25 History rosuvastatin 20 mg tablet (Crestor) 20 mg PO DAILY 05/15/25 05/15/25 History Allergies Allergy/AdvReac Type Severity Reaction Status Date / Time No Known Drug Allergies Allergy Verified 05/15/25 19:15 Exam Narrative: Exam Narrative: PHYSICAL EXAM General: Pleasant, confused, appears in NAD HEENT: Normocephalic, atraumatic, sclera white, EOMI, oral mucosa moist Cardiovascular: RRR, S1S2. Significant +3 pitting edema bilaterally Pulmonary: CTA bilaterally without rhonchi, rales, expiratory wheezes. No dyspnea on 2 L Abdominal: Soft, nondistended, NTTP Neurological: Alert, oriented to self, pleasant cranial nerves intact, RUE/RLE weaker compared to left Extremities: Bilateral lower extremity edema (chronic per EMR). Neurovascularly intact Skin: Warm, dry. Const: Vital Signs, click to edit/add: Vital Signs - 24 hr 06/09/25 20:05 06/09/25 20:08 06/09/25 20:12 Temperature 99.2 F Pulse Rate Pulse Rate [Pulse Oximeter] 74 Respiratory Rate 24 Blood Pressure Blood Pressure [Ri ght Upper Arm] 142/64 H Pulse Oximetry 87 L 92 92 Oxygen Delivery Me thod Room Air Nasal Cannula Oxygen Flow Rate 2 06/09/25 20:14 06/09/25 20:15 06/09/25 20:43 Temperature Pulse Rate 60 60 60 Pulse Rate [Pulse Oximeter] Respiratory Rate Blood Pressure 141/78 H Blood Pressure [Ri ght Upper Arm] Pulse Oximetry 92 93 90 Oxygen Delivery Me thod Nasal Cannula Nasal Cannula Nasal Cannula Oxygen Flow Rate 2 2 2 06/09/25 21:28 06/09/25 21:30 Temperature Pulse Rate Pulse Rate [Pulse Oximeter] 74 Respiratory Rate 20 Blood Pressure Blood Pressure [Ri ght Upper Arm] 134/79 Pulse Oximetry 92 93 Oxygen Delivery Me thod Nasal Cannula Nasal Cannula Oxygen Flow Rate 2 2 Hospitalist - H&P: Result Labs Labs: Short CBC 06/09/25 06/09/25 Range/Units 20:00 20:57 WBC 11.46 H Cancelled (4.50-11.00) K/uL Hgb 7.6 L* Cancelled (13.5-17.5) gm/dL Hct 24.5 L Cancelled (37.0-53.0) % Plt Count 345 Cancelled (140-440) K/uL BMP 06/09/25 06/09/25 20:00 20:57 Sodium 139 Cancelled Potassium 4.9 Cancelled Chloride 109 Cancelled Carbon Dioxide 23 Cancelled BUN 36 H Cancelled Creatinine 1.6 H Cancelled Glucose 227 H Cancelled Calcium 9.1 Cancelled Cardiac Enzymes 06/09/25 Range/Units 20:57 Troponin I 0.08 H* (0.01-0.04) ng/mL Liver Function 06/09/25 Range/Units 20:00 Total Bilirubin 0.7 (0.1-1.5) mg/dL Direct Bilirubin 0.1 (0.0-0.5) mg/dL AST 32 (12-35) U/L ALT 28 (4-50) U/L Alkaline Phosphatase 90 (40-150) U/L Albumin 3.9 (3.3-5.0) g/dL ECG Attestation: I personally reviewed and interpreted this ECG as follows: Interpretation: Ventricularly paced rhythm Imaging CT scan - head: Attestation: I have reviewed the pertinent imaging results. Radiologist's impression: Moderate generalized volume loss. There is focal low attenuation change of the left frontal lobe and extending into the left subinsular white matter and basal ganglia consistent with subacute to chronic infarct. This is consistent with the site of the left MCA occlusion as seen on previous CTA. Stable old infarcts of the right cerebellum. No new intracranial hemorrhage. No new infarcts. No midline shift. No abnormal ventricular dilatation. Basilar cisterns are patent. Normal calvarium and skull base. Visualized paranasal sinuses mastoid air cells are clear. Normal orbits bilaterally. IMPRESSION: 1. 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 This is consistent with the findings of the previous CTA. 2. No new intracranial hemorrhage. No new infarcts. Chest x-ray: Attestation: I have reviewed the pertinent imaging results. Radiologist's impression: None Findings/Impression: Heart failure and pulmonary edema. Superimposed left basilar pneumonia not excluded.
[2025-06-09 23:16] LABS: Procalcitonin* 0.15 ng/mL (<0.50)
[2025-06-09 23:59] LABS: HCO3 VBG 21 mmol/L (21-28); PCO2 VBG 34 mmHG (40-50); PO2 VBG 53.2 mmHG (25-47); pH VBG 7.402 (7.32-7.43)
[2025-06-10] VITALS (20 sets, daily range): BP systolic 124–168; BP diastolic 52–99; PULSE 60–68; RESP 18–28; TEMP 36.6–37.1; O2SAT 89–98; BMI 39.3; BMI 39.4
[2025-06-10 00:26] LABS: Appearance Urine Clear (Clear)
[2025-06-10] MEDS: INSULIN ASPART 100 UNIT/ML SUBCUT ×4 (00:27→21:18)
[2025-06-10] MEDS: ROSUVASTATIN CALCIUM 10 MG TABLET 20 MG PO (00:29)
[2025-06-10] MEDS: CEFEPIME HCL 2 GM in 0.9 % SODIUM CHLORIDE Mini-bag 100 ML IVPB ×2 (00:47→14:15)
[2025-06-10 01:13] LABS: S pneumo Ag Urine S. pneumo Negative (Negative)
[2025-06-10] MEDS: FUROSEMIDE 10 MG/ML inj 20 MG IVP ×3 (02:25→14:15)
--- NOTE | 2025-06-10 06:58 | PC.NURSE ---
pleasant and cooperative. Oriented to self only, pt is unsure of events leading up to admission. Poor historian. Pt in bed this shift. T&R. Pt incont, external catheter placed for accurate I&Os. Transfused 2 units of blood, hgb pending. Pt on 2L O2 via NC, sats 90-94%, RR 24-26, abd breathing noted, LS CTA ? dim bases. Tele ? V Paced w/ BBB, HR 60s. BP stable. Afebrile. 3+ BLE edema. ?
--- NOTE | 2025-06-10 07:01 | P.IMPN_ITS ---
Assessment and Plan Assessment and plan (1) Acute hypoxic respiratory failure: Problem comment: - O2 saturations 87% in ED - likely combination of CHF exacerbation, anemia - CXR: pulmonary edema, superimposed left basilar pneumonia not excluded - BNP 7580 in ED, most recent 7400 - Lasix had been held in TCU recently (given VLAD) - initiated IV Furosemide on 06/09, strict Is/Os, daily weights - RT following - noted to have increased work of breathing and increased LE edema on 06/10 in t he afternoon, BIPAP initiated and 80mg IV Lasix given, moved to CCU status Echocardiogram 05/16/25 Final Impressions: 1. Normal left ventricular size, mildly increased wall thickness, normal global systolic function, calculated EF of 69 %. No LV thrombus. 2. Severely enlarged left atrium. 3. Right ventricular cavity size is normal, global systolic RV function is normal. Pacing leads noted. 4. The aortic valve is sclerotic, trileaflet and calcified, no stenosis and trivial regurgitation. 5. The inferior vena cava is dilated, respiratory size variation less than 50%. 6. Severe MAC present. 7. Echo contrast was administered to enhance visualization of all left ventricular segments. Status: Acute (2) Anemia: Problem comment: - Hemoglobin 7.4 on 06/09, s/p transfusion of 2U PRBCs - Suspect acute blood loss anemia given bruising, no known history of fall - recent CVA, recently on aspirin, transitioned to apixaban 5 mg b.i.d. on 05/23/2025 - HELD on admission 06/10 - FOBT has been ordered Status: Acute (3) Pneumonia: Problem comment: Suspected, acute hypoxic respiratory failure CXR shows that superimposed left basilar pneumonia cannot be excluded. Leukocytosis with left shift. Procalcitonin, CRP pending Empirically starting cefepime 2 g IV q.8 hours given recent prolonged hospitalization and TCU stay Status: Acute (4) Elevated troponin: Problem comment: - troponin 0.08 in ED, EKG c/w paced rhythm - 7 am, troponin 0.09 - repeat troponin and TTE pending Status: Acute (5) Atrial fibrillation: Problem comment: Previously chronically anticoagulated but discontinued Eliquis on his own due to cost Metoprolol 12.5 mg b.i.d. added on 05/21/2025 Apixaban 5 mg b.i.d. 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 Glucose checks ACHS, insulin sliding scale, hypoglycemia protocol Status: Chronic (8) CKD stage 3b, GFR 30-44 ml/min: Problem comment: - Creatinine 1.6 on admission, baseline 1.3-1.5 - Potassium 4.9, BUN 36 - 7/12: creatinine 1.5 with K of 4.8 - Avoid nephrotoxic medications, continuing home medications for now, continue to monitor Status: Acute (9) (HFpEF) heart failure with preserved ejection fraction: Problem comment: BNP slightly up 7580, previously 7400 CXR shows heart failure and pulmonary edema Restart IV Lasix BID, adjusting doses necessary, follow renal function Strict I&Os, daily weights, repeat TTE Echocardiogram 05/16/25 Final Impressions: 1. Normal left ventricular size, mildly increased wall thickness, normal global systolic function, calculated EF of 69 %. No LV thrombus. 2. Severely enlarged left atrium. 3. Right ventricular cavity size is normal, global systolic RV function is normal. Pacing leads noted. 4. The aortic valve is sclerotic, trileaflet and calcified, no stenosis and trivial regurgitation. 5. The inferior vena cava is dilated, respiratory size variation less than 50%. 6. Severe MAC present. 7. Echo contrast was administered to enhance visualization of all left ventricular segments. Status: Acute (10) Confusion: Problem comment: Per EMR, report of cognitive issues at baseline. PCP notes concern for memory loss 05/09/2025. Orders for outpatient cognitive evaluation noted CT head today shows no new hemorrhage or infarcts Monitor for delirium Status: Acute (11) CVA (cerebral vascular accident): Problem comment: 05/15/2025 CTA showed left distal M1 occlusion, started on TNK, transferred to [facility]. 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 - reviewed with Dr. Ornelas of vascular surgery; he will evaluate images but likely will recommend outpatient f/u Status: Acute Plan - per above (continue to hold Apixaban, Cefepime for PNA, agressive diuresis) - updated Dot by phone, she is meeting with family this evening to discuss goals of care, but for now would want patient transferred to higher level of care if needed Subjective Date Seen: 06/10/25 Interval history: Jean Claude was admitted to the hospital last night from [facility] after presenting to the emergency room with weakness and confusion, new anemia and acute hypoxic respiratory failure 2/2 presumed HFpEF exacerbation and L sided PNA. Hgb cami of 7.4, received 2U PRBCs overnight, Hgb increased to 9.2 this morning. IV Cefepine initiated. Noted to have bruising over R groin, so Pelvic CT obtained overnight: 1. Mild soft tissue edema with no organized hematoma or acute fracture or malalignment appreciated. 2. 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 Ultrasound would be recommended for further evaluation. 3. Large bladder calculus with eccentric irregular areas of bladder wall thickening. Differential includes chronic cystitis and neoplasm. This morning, ultrasound obtained: 1. 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 2. Suggest obtaining a CT angiography during arterial and venous phase imaging involving the right groin. Then CTA obtained per above: 1. Soft tissue mass identified in the right inguinal area with a small pse udoaneurysm most likely coming from the right common femoral artery; difficult to identify this on the ultrasound study. 2. Large cortical cyst lower pole left kidney. 3. Bilateral pleural effusion. 4. Gallstones. 5. 2.6 cm stone in the urinary bladder. 6. Enlarged prostate gland. 7. Bilateral inguinal hernias. Jean Claude denies any groin pain, tolerates palpation. Images have been pushed to [facility] for Vascular Surgery to review. This afternoon (06/10), he was noted to be more confused and tachypneic, with increased LE edema. BIPAP initiated, given 80mg IV Lasix. Recent L MCA CVA, hospitalized at [facility] in April, then sent to [facility], then moved to [address] [place] [address] on 05/31. Exam Narrative: Exam Narrative: GEN: Awake, minimally interactive HEENT: Normal external ears, EOMIs bilaterally, no scleral icterus CV: RRR, No concerning murmurs R: LCTA bilaterally without concerning wheezing, mild bibasilar rales -- > afternoon exam: + tachypnea, bibasilar rales Ext: wwp, 1-2+ BLE edema Skin: Bruising over R groin, bruising over R shoulder Neuro: No resting tremor Psych: Appears to have MCI, answering questions with yes/no, no agitation Const: Vital Signs, click to edit/add: Vital Signs - 24 hr 06/09/25 20:05 06/09/25 20:08 06/09/25 20:12 Temperature 99.2 F Pulse Rate Pulse Rate [Pulse Oximeter] 74 Respiratory Rate 24 Blood Pressure Blood Pressure [Le ft Arm] Blood Pressure [Ri ght Upper Arm] 142/64 H Pulse Oximetry 87 L 92 92 Oxygen Delivery Me thod Room Air Nasal Cannula Oxygen Flow Rate 2 06/09/25 20:14 06/09/25 20:15 06/09/25 20:43 Temperature Pulse Rate 60 60 60 Pulse Rate [Pulse Oximeter] Respiratory Rate Blood Pressure 141/78 H Blood Pressure [Le ft Arm] Blood Pressure [Ri ght Upper Arm] Pulse Oximetry 92 93 90 Oxygen Delivery Me thod Nasal Cannula Nasal Cannula Nasal Cannula Oxygen Flow Rate 2 2 2 06/09/25 21:28 06/09/25 21:30 06/09/25 22:07 Temperature Pulse Rate Pulse Rate [Pulse Oximeter] 74 Respiratory Rate 20 24 Blood Pressure Blood Pressure [Le ft Arm] Blood Pressure [Ri ght Upper Arm] 134/79 Pulse Oximetry 92 93 90 Oxygen Delivery Me thod Nasal Cannula Nasal Cannula Nasal Cannula Oxygen Flow Rate 2 2 2 06/09/25 22:07 07/11/25 23:56 06/10/25 00:10 Temperature 98 F 98 F 98.1 F Pulse Rate 71 60 Pulse Rate [Pulse Oximeter] Respiratory Rate 24 24 24 Blood Pressure 132/112 H 149/62 H Blood Pressure [Le ft Arm] 152/66 H Blood Pressure [Ri ght Upper Arm] Pulse Oximetry 91 90 91 Oxygen Delivery Me thod Nasal Cannula Nasal Cannula Nasal Cannula Oxygen Flow Rate 2 2 2 06/10/25 00:40 06/10/25 01:03 06/10/25 01:10 Temperature Pulse Rate 60 60 63 Pulse Rate [Pulse Oximeter] Respiratory Rate 24 24 Blood Pressure 144/66 H 142/64 H Blood Pressure [Le ft Arm] Blood Pressure [Ri ght Upper Arm] Pulse Oximetry 92 90 Oxygen Delivery Me thod Nasal Cannula Nasal Cannula Oxygen Flow Rate 2 2 06/10/25 01:40 06/10/25 02:10 06/10/25 02:43 Temperature 98 F 98.6 F Pulse Rate 60 60 60 Pulse Rate [Pulse Oximeter] Respiratory Rate 24 24 20 Blood Pressure 157/67 H 157/67 H 156/68 H Blood Pressure [Le ft Arm] Blood Pressure [Ri ght Upper Arm] Pulse Oximetry 89 89 91 Oxygen Delivery Me thod Nasal Cannula Nasal Cannula Nasal Cannula Oxygen Flow Rate 2 2 2 06/10/25 02:59 06/10/25 03:29 06/10/25 03:59 Temperature 98.6 F Pulse Rate 60 61 60 Pulse Rate [Pulse Oximeter] Respiratory Rate 24 24 24 Blood Pressure 154/69 H 149/66 H 168/83 H Blood Pressure [Le ft Arm] Blood Pressure [Ri ght Upper Arm] Pulse Oximetry 90 94 91 Oxygen Delivery Me thod Nasal Cannula Nasal Cannula Nasal Cannula Oxygen Flow Rate 2 2 2 06/10/25 04:29 06/10/25 04:59 06/10/25 06:33 Temperature 98.7 F 98.8 F Pulse Rate 60 60 60 Pulse Rate [Pulse Oximeter] Respiratory Rate 24 24 24 Blood Pressure 161/76 H 155/74 H 161/78 H Blood Pressure [Le ft Arm] Blood Pressure [Ri ght Upper Arm] Pulse Oximetry 93 94 93 Oxygen Delivery Me thod Nasal Cannula Nasal Cannula Nasal Cannula Oxygen Flow Rate 2 2 2 Labs Labs: Laboratory Results - last 24 hr 06/09/25 06/09/25 06/09/25 20:00 20:10 20:57 WBC 11.46 H Cancelled Corrected WBC Cancelled RBC 2.51 L Cancelled Hgb 7.6 L* Cancelled Hct 24.5 L Cancelled MCV 98 Cancelled MCH 30 Cancelled MCHC 31 L Cancelled RDW Coeff of Margo 17.9 H Cancelled Plt Count 345 Cancelled Neut % (Auto) 90.1 H Cancelled Lymph % (Auto) 3.4 L Cancelled Bryan % (Auto) 5.9 Cancelled Eos % (Auto) 0.2 Cancelled Baso % (Auto) 0.2 Cancelled Neut # (Auto) 10.30 H Cancelled Lymph # (Auto) 0.40 L Cancelled Bryan # (Auto) 0.70 Cancelled Eos # (Auto) 0.00 Cancelled Baso # (Auto) 0.00 Cancelled Abs Immat Gran (auto) 0.00 Cancelled Imm/Tot Granulo (auto) 0.2 Cancelled VBG pH VBG pCO2 VBG pO2 VBG HCO3 Sodium 139 Cancelled Potassium 4.9 Cancelled Chloride 109 Cancelled Carbon Dioxide 23 Cancelled Anion Gap 7 Cancelled BUN 36 H Cancelled Creatinine 1.6 H Cancelled Estimated Creat Clear Cancelled Estimated GFR 41 Cancelled Glucose 227 H Cancelled Calcium 9.1 Cancelled Total Bilirubin 0.7 Direct Bilirubin 0.1 AST 32 ALT 28 Alkaline Phosphatase 90 Troponin I 0.08 H* C-Reactive Protein 2.8 H NT-Pro-B Natriuret Pep 7580 H Total Protein 6.6 Albumin 3.9 Procalcitonin 0.15 Urine Color Urine Appearance Urine pH Ur Specific [place] Urine Protein Urine Glucose (UA) Urine Ketones Urine Blood Urine Nitrite Urine Bilirubin Urine Urobilinogen Ur Leukocyte Esterase Urine RBC Urine WBC Ur Squamous Epith Cells Urine Bacteria Urine L. pneumophilia Ag Urine Strep pneumoniae Ag Lab Acknowledgement POC Troponin I 0.05 H Blood Type O Negative Antibody Screen NEGATIVE Crossmatch (AHG) See Detail 06/09/25 06/09/25 06/09/25 22:12 23:54 23:58 WBC Corrected WBC RBC Hgb Hct MCV MCH MCHC RDW Coeff of Margo Plt Count Neut % (Auto) Lymph % (Auto) Bryan % (Auto) Eos % (Auto) Baso % (Auto) Neut # (Auto) Lymph # (Auto) Bryan # (Auto) Eos # (Auto) Baso # (Auto) Abs Immat Gran (auto) Imm/Tot Granulo (auto) VBG pH 7.402 VBG pCO2 34 L VBG pO2 53.2 H VBG HCO3 21 Sodium Potassium Chloride Carbon Dioxide Anion Gap BUN Creatinine Estimated Creat Clear Estimated GFR Glucose Calcium Total Bilirubin Direct Bilirubin AST ALT Alkaline Phosphatase Troponin I 0.08 H* C-Reactive Protein NT-Pro-B Natriuret Pep Total Protein Albumin Procalcitonin Urine Color Yellow Urine Appearance Clear Urine pH 5.0 Ur Specific [place] 1.015 Urine Protein 2+ A Urine Glucose (UA) Negative Urine Ketones Negative Urine Blood Trace-intact A Urine Nitrite Negative Urine Bilirubin Negative Urine Urobilinogen 0.2 Ur Leukocyte Esterase Negative Urine RBC 2-5 A Urine WBC 2-5 Ur Squamous Epith Cells Moderate A Urine Bacteria Few A Urine L. pneumophilia Ag L. pneumo Negative Urine Strep pneumoniae Ag S. pneumo Negative Lab Acknowledgement Test Added Test Added Test Added POC Troponin I Blood Type Antibody Screen Crossmatch (AHG)
[2025-06-10 08:11] LABS: Hematocrit 29.3 % (37.0-53.0); Hemoglobin* 9.2 gm/dL (13.5-17.5); Mean Corpuscular HGB Conc 31 gm/dL (32-36); Mean Corpuscular Hemoglobin 30 pg (26-34); Mean Corpuscular Volume 96 fL (80-100); Red Blood Count 3.05 m/uL (4.30-5.90); White Blood Count* 9.91 K/uL (4.50-11.00)
[2025-06-10 08:12] LABS: Slide Review Reflex No
[2025-06-10 08:25] LABS: Chloride* 109 mmol/L (96-114); Potassium* 4.8 mmol/L (3.6-5.1); Sodium* 139 mmol/L (135-149)
[2025-06-10 08:29] LABS: Anion Gap 8 mEq/L (7-15); Blood Urea Nitrogen* 34 mg/dL (7-30); Calcium* 8.9 mg/dL (8.4-10.6); Carbon Dioxide* 22 mmol/L (20-32); Creatinine* 1.5 mg/dL (0.5-1.5); Est. Creatinine Clearance* 33.57; Estimated Glomerular Filt Rate 45 ml/min; Glucose* 236 mg/dL (60-115)
[2025-06-10] MEDS: SODIUM CHLORIDE 0.9 % (FLUSH) 10 ML SYRINGE 5 ML IVF (09:20)
[2025-06-10] MEDS: METOPROLOL TARTRATE 25 MG TABLET 12.5 MG PO ×2 (09:20→21:15)
--- NOTE | 2025-06-10 09:27 | CRLHL7_ITS ---
For Patients: As a result of the Cures Act, medical imaging exams and procedure reports are released immediately into your electronic medical record. You may view this report before your referring provider. If you have questions, please contact your health care provider. INDICATION: A calcified lesion contiguous with the right common femoral artery/external iliac artery on CT; bruising in the right groin area; further assessment. COMPARISON: CT pelvis with intravenous contrast June 09, 2025. TECHNIQUE: Duplex ultrasound evaluation right inguinal area; color Doppler duplex assessment; Doppler spectral analysis. Findings: Biphasic flow identified in the right external iliac artery, common femoral artery and the superficial femoral artery. A 5.3 x 2.2 x 1.1 cm lesion with calcifications identified appears to be originating from either the common femoral artery or proximal SFA. No pseudoaneurysm. No AV fistula. No hematoma identified. Impression: 1. 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 2. Suggest obtaining a CT angiography during arterial and venous phase imaging involving the right groin. Dictated by Ayla Emerson MD @ 06/10/2025 11:18:18 AM (Electronically Signed)
--- NOTE | 2025-06-10 12:05 | CRLHL7_ITS ---
For Patients: As a result of the Century Cures Act, medical imaging exams and procedure reports are released immediately into your electronic medical record. You may view this report before your referring provider. If you have questions, please contact your health care provider. INDICATION: Rule out aneurysm/pseudoaneurysm right common femoral artery; further evaluation. COMPARISON: CT pelvis with intravenous contrast June 09, 2025; duplex ultrasound evaluation right inguinal area. TECHNIQUE: CT angio abdomen and pelvis with intravenous contrast; coronal and sagittal reformats; 100 cc of Omni 350 contrast was injected. FINDINGS: A 4.9 x 2.4 x 2.4 cm complex mass right inguinal area anterior to the right femoral vessels. There are peripheral calcifications identified. A central contrast collection measuring 9 x 6 mm in size; very difficult to identify a neck; possibly a tiny neck connecting to the common femoral artery slice 451 series 5. The inferior epigastric artery is unremarkable. No evidence of occlusive disease involving either the external iliac artery, common femoral artery or superficial femoral artery on the right side. Evidence of bilateral inguinal hernias. No hematoma identified in the groin on either side. Calcific atheromatous changes involving the abdominal aorta and iliac arteries without an occlusive disease. Visceral arteries are unremarkable. Total hip arthroplasty on the left side. No focal hepatic or splenic pathology. No pancreatic pathology. Gallstones. Large cortical cyst lower pole left kidney. A 2.6 cm calculus identified in the urinary bladder. Multiple enhancing areas identified within the thickened bladder wall. IMPRESSION: 1. 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 2. Large cortical cyst lower pole left kidney. 3. Bilateral pleural effusion. 4. Gallstones. 5. 2.6 cm stone in the urinary bladder. 6. Enlarged prostate gland. 7. Bilateral inguinal hernias. Please note that all CT scans at this facility use dose modulation, iterative reconstruction, and/or weight-based dosing when appropriate to reduce radiation dose to as low as reasonably achievable. Dictated by Ayla Emerson MD @ 06/10/2025 2:29:57 PM (Electronically Signed)
--- NOTE | 2025-06-10 13:00 | RESP.RT ---
Patient weaned to 1L NC to keep SAT at 92% while at rest. We will continue to wean as patient tollerates.
--- NOTE | 2025-06-10 15:28 | CRLHL7_ITS ---
For Patients: As a result of the Century Cures Act, medical imaging exams and procedure reports are released immediately into your electronic medical record. You may view this report before your referring provider. If you have questions, please contact your health care provider. Indication: : Pulmonary edema Comparison chest x-ray 06/09/2025 TECHNIQUE: Single-view chest. FINDINGS: Enlarged cardiac silhouette mild pulmonary edema without significant change left cardiac pacer retrocardiac atelectasis/consolidation. Small effusion. No pneumothorax. Dictated by Cathy Christiansen MD @ 06/10/2025 4:40:22 PM (Electronically Signed)
--- NOTE | 2025-06-10 15:53 | RESP.RT ---
Patient has become more confused and belly breathing. Patient placed on .25BiPAP 14/10 SATing 95%. Chest x-ray taken and initial views looked fluffy, so patient will remain on 10 PEEP to help with the pulmonary congestion of fluid.
[2025-06-10 16:04] LABS: HCO3 VBG 23 mmol/L (21-28); PCO2 VBG 34 mmHG (40-50); PO2 VBG 39.8 mmHG (25-47); pH VBG 7.431 (7.32-7.43)
[2025-06-10 16:07] LABS: Hematocrit 29.9 % (37.0-53.0); Hemoglobin* 9.4 gm/dL (13.5-17.5); Immature Granulocytes Abs Auto 0.14 K/uL (0.00-0.30); Immature Granulocytes Pct Auto 1.4 %; Lymphocytes Absolute Auto 0.30 K/uL (0.90-2.90); Mean Corpuscular HGB Conc 31 gm/dL (32-36); Mean Corpuscular Hemoglobin 30 pg (26-34); Mean Corpuscular Volume 97 fL (80-100); RDW Coefficient of Variation % 17.1 % (11.5-15.5); Red Blood Count 3.10 m/uL (4.30-5.90); White Blood Count* 10.05 K/uL (4.50-11.00)
[2025-06-10] MEDS: FUROSEMIDE 10 MG/ML inj 80 MG IVP (16:12)
[2025-06-10 16:13] LABS: Slide Review Reflex No
[2025-06-10] MEDS: POTASSIUM CHLORIDE 10 MEQ/100 ML PIGGYBACK 100 MEQ IVPB ×3 (18:05→19:54)
[2025-06-11] VITALS (9 sets, daily range): BP systolic 83–159; BP diastolic 60–94; PULSE 60–62; RESP 19–24; TEMP 36.6–37.1; O2SAT 91–97
[2025-06-11] MEDS: CEFEPIME HCL 2 GM in 0.9 % SODIUM CHLORIDE Mini-bag 100 ML IVPB ×2 (00:47→12:54)
--- NOTE | 2025-06-11 06:34 | PC.NURSE ---
19-0700: The patient tolerated the BIPAP well throughout the night. Saturations maintained, the patient slept well throughout the night as ell. Male purewick was trialed again and noted to fail/ leak. Incontinent in brief. repositioned in bed throughout the night. Sacral mepilex was applied due to noted problem area. R forearm IV, R AC IV was noted to not flush, it was removed. No reports of pain. An update was given to [facility] over the phone. I also gave the daughter in law an update this AM. BLE edema is noted to be minimal. Alarms are in place. Gwendolyn GARBER BSN
[2025-06-11 06:45] LABS: Hematocrit 29.6 % (37.0-53.0); Hemoglobin* 9.5 gm/dL (13.5-17.5); Mean Corpuscular HGB Conc 32 gm/dL (32-36); Mean Corpuscular Hemoglobin 31 pg (26-34); Mean Corpuscular Volume 97 fL (80-100); Red Blood Count 3.06 m/uL (4.30-5.90); White Blood Count* 8.84 K/uL (4.50-11.00)
[2025-06-11 07:01] LABS: Slide Review Reflex No
[2025-06-11 07:03] LABS: Chloride* 105 mmol/L (96-114); Potassium* 4.2 mmol/L (3.6-5.1); Sodium* 138 mmol/L (135-149)
[2025-06-11 07:06] LABS: Anion Gap 3 mEq/L (7-15); Blood Urea Nitrogen* 31 mg/dL (7-30); Carbon Dioxide* 30 mmol/L (20-32); Creatinine* 1.6 mg/dL (0.5-1.5); Est. Creatinine Clearance* 31.47; Estimated Glomerular Filt Rate 41 ml/min
[2025-06-11 07:07] LABS: Calcium* 8.8 mg/dL (8.4-10.6); Glucose* 199 mg/dL (60-115)
[2025-06-11 07:32] LABS: HCO3 VBG 29 mmol/L (21-28); PCO2 VBG 44 mmHG (40-50); PO2 VBG < 30.1 mmHG (25-47); pH VBG 7.429 (7.32-7.43)
[2025-06-11] MEDS: FUROSEMIDE 10 MG/ML inj 40 MG IVP ×2 (08:36→15:22)
--- NOTE | 2025-06-11 08:37 | PM.IMPN1 ---
Assessment and Plan Assessment and plan (1) Acute hypoxic respiratory failure: Problem comment: - likely combination of HFpEF exacerbation, anemia - imaging consistent with Pulmonary Edema, L pneumonia - BNP 7580 in ED, previously 7400 - initiated IV Furosemide on 06/09, strict Is/Os, daily weights - RT following - noted to have increased work of breathing and increased LE edema on 06/10 in the afternoon, BIPAP initiated and 80mg IV Lasix given, moved to CCU status - 06/11: improved, stable on NC - stable TTE on 06/10/25 Status: Acute (2) Anemia: Problem comment: - Hemoglobin 7.4 on 06/09, s/p transfusion of 2U PRBCs - Suspect acute blood loss anemia given bruising, no known history of fall - recent CVA, recently on aspirin, transitioned to apixaban 5 mg b.i.d. on 05/23/2025 - HELD on admission 06/10 - FOBT has been ordered, pending Status: Acute (3) (HFpEF) heart failure with preserved ejection fraction: Problem comment: - stable TTE, clinical exacerbation with respiratory failure - required course of BIPAP 06/10-06/11 Status: Acute (4) Pneumonia: Problem comment: - suspected, acute hypoxic respiratory failure - CXR shows that superimposed left basilar pneumonia cannot be excluded. Leukocytosis with left shift, negative Procalcitonin - Empirically started cefepime 2 g IV q.8 hours given recent prolonged hospitalization and TCU stay Status: Acute (5) Elevated troponin: Problem comment: - troponin 0.08 in ED, EKG c/w paced rhythm - peaked at 0.1 - TTE stable Status: Acute (6) Atrial fibrillation: Problem comment: - Previously chronically anticoagulated but discontinued Eliquis on his own due to cost - Metoprolol 12.5 mg b.i.d. added on 05/21/2025 - Apixaban 5 mg b.i.d. 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 (7) Cardiac pacemaker: Problem comment: - History of AFib, flutter, intermittent complete heart block, ventricular tachycardia Status: Acute (8) Diabetes mellitus type 2, insulin dependent: Problem comment: - Lantus increased to 18 units at bedtime 05/25/2025 - 9 units ordered on admission, adjust as necessary - Hold home glipizide and Metformin - Glucose checks ACHS, insulin sliding scale, hypoglycemia protocol Status: Chronic (9) CKD stage 3b, GFR 30-44 ml/min: Problem comment: - Creatinine 1.6 on admission, baseline 1.3-1.5 - Potassium 4.9, BUN 36 - 06/10: creatinine 1.5 with K of 4.8 - Avoid nephrotoxic medications, continuing home medications for now, continue to monitor Status: Acute (10) Confusion: Problem comment: - Per EMR, report of cognitive issues at baseline. PCP notes concern for memory loss 05/09/2025 - recent CVA - CT head 06/10 shows no new hemorrhage or infarcts - Monitor for delirium Status: Acute (11) CVA (cerebral vascular accident): Problem comment: 05/15/2025 CTA showed left distal M1 occlusion, started on TNK, transferred to [facility]. MRI showed infarct in the left MCA territory Right hemiparesis, right facial droop, right hemianopsia, right neglect, aphasia, dysphagia Discharged to [facility] for rehab on 06/01/2025 Was on aspirin, transitioned to apixaban 05/23/2025 (HOLDING), rosuvastatin PT/OT following, likely back to [facility] when stable Status: Acute (12) Weakness: Problem comment: PT/OT consult Status: Acute (13) Inguinal mass: Problem comment: - read from CTA on 06/10 below: - soft tissue mass identified in the right inguinal area with a small pseudoaneurysm most likely coming from the right common femoral artery; difficult to identify this on the ultrasound study. - reviewed with Dr. Ornelas of vascular surgery; recommends outpatient f/u if no acute bleeding - patient asymptomatic, Hgb stable Status: Acute Plan - per above, may need BIPAP overnight but will continue to monitor clinically - family updated bedside, questions answered - back to [facility] when stable, likely 1-2 days Subjective Date Seen: 06/11/25 Interval history: Jean Claude was admitted to the hospital on 06/09 from [facility] after presenting to the emergency room with weakness and confusion, new anemia and acute hypoxic respiratory failure 2/2 presumed HFpEF exacerbation and L sided PNA. Comorbidities include a recent L MCA CVA requiring hospitalization at [facility] in April of 2025. He had acute rehab at [facility], moved to [facility] on 05/31/2025. Since admission: - hemoglobin cami of 7.4, received total of 2 units PRBCs on 06/09/2025 with improvement of Hgb to >9 - IV cefepime given concern for pneumonia on chest x-ray and recent hospitalization - receiving IV diuresis for HFpEF exacerbation (40mg IV Furosemide BID), K stable - required initiation of BiPAP and CCU status escalation on 06/10/2025 - imaging of pelvis obtained given hematoma; eventually diagnosed with a soft tissue mass in the right inguinal area with a small pseudoaneurysm from the right femoral artery, reviewed with vascular surgery by phone on 06/10/2025 who recommends outpatient follow-up - elevated troponin, peaked at 0.10; likely cardiac strain from acute respiratory failure secondary to HFpEF exacerbation - + B pleural effusions and findings of pulmonary edema on imaging - TTE obtained 06/10 with results below: Limited Echocardiogram performed 1. Normal left ventricular size, mildly increased wall thickness, normal global systolic function, calculated EF of 69 %. 2. The aortic valve is trileaflet and calcified, no stenosis and no regurgitation. 3. The mitral valve is sclerotic, trace mitral regurgitation. Severe MAC present. 4. No pericardial effusion. Jean Claude was on BiPAP overnight, this morning was minimally interactive, then woke up and was talkative after BiPAP removal. VBG reveals pH of 7.4, CO2 44 He has no concerns for hospitalist team. Exam Narrative: Exam Narrative: GEN: Awake, sitting in bed HEENT: EOMIs bilaterally, no scleral icterus CV: RRR, No concerning murmurs R: Bibasilar rales Ext: 2+ BLE edema Skin: Bruising over right axilla and right groin region Neuro: No resting tremor, occasionally has myoclonic jerks of lower extremities, no facial droop Psych: Appears to have cognitive impairment, remembers name of but not all family members, no agitation Const: Vital Signs, click to edit/add: Vital Signs - 24 hr 06/10/25 11:27 06/10/25 15:00 06/10/25 15:00 Temperature 98.4 F 98.4 F Pulse Rate Pulse Rate [Pulse Oximeter] 60 61 61 Respiratory Rate 28 H 24 24 Blood Pressure [Le ft Arm] 148/71 H 143/70 H Pulse Oximetry 92 98 Oxygen Delivery Me thod Nasal Cannula Nasal Cannula Oxygen Flow Rate 2 Fraction of Inspir ed Oxygen 06/10/25 15:00 06/10/25 15:52 06/10/25 19:25 Temperature 98.0 F Pulse Rate 68 Pulse Rate [Pulse Oximeter] 60 Respiratory Rate 20 Blood Pressure [Le ft Arm] 125/99 H Pulse Oximetry 95 Oxygen Delivery Me thod BiPAP Oxygen Flow Rate Fraction of Inspir ed Oxygen 0.25 06/10/25 21:21 06/10/25 23:00 06/10/25 23:25 Temperature 98.2 F Pulse Rate 60 Pulse Rate [Pulse Oximeter] 60 60 Respiratory Rate 18 20 Blood Pressure [Le ft Arm] 137/52 L 124/78 Pulse Oximetry 97 94 Oxygen Delivery Me thod BiPAP BiPAP Oxygen Flow Rate Fraction of Inspir ed Oxygen 06/11/25 03:00 06/11/25 05:00 06/11/25 07:00 Temperature 97.8 F Pulse Rate Pulse Rate [Pulse Oximeter] 61 60 60 Respiratory Rate 19 24 Blood Pressure [Le ft Arm] 119/93 H 133/94 H Pulse Oximetry 94 95 Oxygen Delivery Me thod BiPAP BiPAP Oxygen Flow Rate Fraction of Inspir ed Oxygen 06/11/25 07:00 06/11/25 07:00 Temperature 97.8 F Pulse Rate 60 Pulse Rate [Pulse Oximeter] 60 Respiratory Rate 24 Blood Pressure [Le ft Arm] 140/93 H Pulse Oximetry 96 Oxygen Delivery Me thod BiPAP Oxygen Flow Rate 2 Fraction of Inspir ed Oxygen 0.25 Labs Labs: Laboratory Results - last 24 hr 06/10/25 06/10/25 06/10/25 08:03 12:02 16:00 WBC 10.05 RBC 3.10 L Hgb 9.4 L Hct 29.9 L MCV 97 MCH 30 MCHC 31 L RDW Coeff of Margo 17.1 H Plt Count 291 Neut % (Auto) 89.6 H Lymph % (Auto) 3.0 L [place] % (Auto) 5.1 Eos % (Auto) 0.7 Baso % (Auto) 0.2 Neut # (Auto) 9.00 H Lymph # (Auto) 0.30 L [place] # (Auto) 0.50 Eos # (Auto) 0.07 Baso # (Auto) 0.02 Abs Immat Gran (auto) 0.14 Imm/Tot Granulo (auto) 1.4 VBG pH 7.431 H VBG pCO2 34 L VBG pO2 39.8 VBG HCO3 23 Sodium Potassium Chloride Carbon Dioxide Anion Gap BUN Creatinine Estimated Creat Clear Estimated GFR Glucose Calcium Troponin I 0.09 H* 0.10 H* Lab Acknowledgement Test Added 06/11/25 06/11/25 06:18 07:17 WBC 8.84 RBC 3.06 L Hgb 9.5 L Hct 29.6 L MCV 97 MCH 31 MCHC 32 RDW Coeff of Margo Plt Count 276 Neut % (Auto) Lymph % (Auto) [place] % (Auto) Eos % (Auto) Baso % (Auto) Neut # (Auto) Lymph # (Auto) [place] # (Auto) Eos # (Auto) Baso # (Auto) Abs Immat Gran (auto) Imm/Tot Granulo (auto) VBG pH 7.429 VBG pCO2 44 VBG pO2 < 30.1 VBG HCO3 29 H Sodium 138 Potassium 4.2 Chloride 105 Carbon Dioxide 30 Anion Gap 3 L BUN 31 H Creatinine 1.6 H Estimated Creat Clear 31.47 Estimated GFR 41 Glucose 199 H Calcium 8.8 Troponin I Lab Acknowledgement Test Added
[2025-06-11] MEDS: SODIUM CHLORIDE 0.9 % (FLUSH) 10 ML SYRINGE 5 ML IVF (10:09)
[2025-06-11] MEDS: AMLODIPINE 10 MG TABLET PO (10:27)
[2025-06-11] MEDS: ROSUVASTATIN CALCIUM 10 MG TABLET 20 MG PO (10:27)
[2025-06-11] MEDS: METOPROLOL TARTRATE 25 MG TABLET 12.5 MG PO ×2 (10:36→20:16)
[2025-06-11] MEDS: POTASSIUM BICARB 25 MEQ EFFERVESCENT TAB PO (15:22)
[2025-06-11] MEDS: POTASSIUM CHLORIDE 10 MEQ CAPSULE ER 20 MEQ PO (18:20)
--- NOTE | 2025-06-11 18:55 | RESP.RT ---
Patient has been off of BiPAP during the day and able to have a RR of 18-24 breathing comfortably and SATing 92%. Arms and legs appear to be holding a lot of fluid, so I would recommend that he remain on 12/8 BiPAP while resting. The patient only needs BiPAP for the PEEP and slight PS for work of breathing. The patient has not been retaining CO2. Patient does not always respond appropriately, but has tolerated BiPAP very well.
--- NOTE | 2025-06-11 18:58 | PC.NURSE ---
End of shift [id number]: patient on Bipap until noon. tolerating a diabetic diet, alert and voiding well, external cath in place for accurate I's and O's. VSS, on RA last three hours of shift. on tele. afebrile this shift. IV in right and left wrist SL. tolerated activity with PT/OT today. BG WNL.
[2025-06-11] MEDS: INSULIN ASPART 100 UNIT/ML SUBCUT (20:53)
[2025-06-12] MEDS: SODIUM CHLORIDE 0.9 % (FLUSH) 10 ML SYRINGE 5 ML IVF ×2 (01:30→08:54)
[2025-06-12] MEDS: CEFEPIME HCL 2 GM in 0.9 % SODIUM CHLORIDE Mini-bag 100 ML IVPB ×2 (01:38→12:54)
[2025-06-12 03:00] VITALS: BP 145/50; PULSE 60; RESP 25; TEMP 36.8; O2SAT 96
[2025-06-12 06:01] LABS: HCO3 VBG 29 mmol/L (21-28); PCO2 VBG 39 mmHG (40-50); PO2 VBG < 30.1 mmHG (25-47); pH VBG 7.484 (7.32-7.43)
[2025-06-12 06:04] LABS: Hematocrit 30.5 % (37.0-53.0); Hemoglobin* 9.9 gm/dL (13.5-17.5); Immature Granulocytes Abs Auto 0.08 K/uL (0.00-0.30); Immature Granulocytes Pct Auto 1.0 %; Lymphocytes Absolute Auto 0.30 K/uL (0.90-2.90); Mean Corpuscular HGB Conc 33 gm/dL (32-36); Mean Corpuscular Hemoglobin 31 pg (26-34); Mean Corpuscular Volume 95 fL (80-100); RDW Coefficient of Variation % 16.5 % (11.5-15.5); Red Blood Count 3.20 m/uL (4.30-5.90); White Blood Count* 7.76 K/uL (4.50-11.00)
[2025-06-12 06:10] LABS: Slide Review Reflex No
[2025-06-12 06:20] LABS: Chloride* 99 mmol/L (96-114); Potassium* 4.1 mmol/L (3.6-5.1); Sodium* 133 mmol/L (135-149)
[2025-06-12 06:23] LABS: Anion Gap 6 mEq/L (7-15); Blood Urea Nitrogen* 33 mg/dL (7-30); Calcium* 8.7 mg/dL (8.4-10.6); Carbon Dioxide* 28 mmol/L (20-32); Creatinine* 1.6 mg/dL (0.5-1.5); Est. Creatinine Clearance* 31.47; Estimated Glomerular Filt Rate 41 ml/min; Glucose* 197 mg/dL (60-115)
--- NOTE | 2025-06-12 06:28 | PC.NURSE ---
The patient is alert to himself only. VSS on RA, BIPAP overnight for sleeping due to fluid overload and work of breathing. Iv's in both hands wrapped in coban. No reports of pain. Incontinent of urine throughout the shift. The patient had a male purewick on upon initial assessment. The patient was soaking wet, using incontinent pads and repositioning q2. Ax2 w/ GB and RW when up. Alarms are on, unsure if the patient would call appropriately. Gwendolyn GARBER BSN
[2025-06-12 08:09] VITALS: BP 136/64; PULSE 60; RESP 24; TEMP 36.7; O2SAT 95
[2025-06-12] MEDS: AMLODIPINE 10 MG TABLET PO (08:52)
[2025-06-12] MEDS: ROSUVASTATIN CALCIUM 10 MG TABLET 20 MG PO (08:52)
[2025-06-12] MEDS: POTASSIUM CHLORIDE 10 MEQ CAPSULE ER 20 MEQ PO (08:53)
[2025-06-12] MEDS: METOPROLOL TARTRATE 25 MG TABLET 12.5 MG PO (08:53)
[2025-06-12] MEDS: INSULIN ASPART 100 UNIT/ML SUBCUT ×2 (08:54→12:53)
[2025-06-12] MEDS: FUROSEMIDE 10 MG/ML inj 40 MG IVP (08:54)
[2025-06-12] MEDS: SENNOSIDES/DOCUSATE TABLET 2 TAB PO (09:07)
[2025-06-12 10:14] VITALS: PULSE 61
[2025-06-12 11:17] VITALS: BP 118/61; PULSE 60; RESP 18; TEMP 36.2; O2SAT 97
--- NOTE | 2025-06-12 11:54 | P.DS_ITS ---
DS: Providers Provider Date Seen: 06/12/25 Date of admission: 06/09/25 23:46 Primary care physician: Not a Local Provider Admitting Clinician: Kaye Landaverde MD Consults: 06/09/25 22:12 Consult to Occupational Therapy [CONS] Routine Comment: Reason(s) for OT Consult:: Evaluate and Treat Any Restrictions?:: No Restrictions Consult to Physical Therapy [CONS] Routine Comment: Reason(s) for PT Consult:: Evaluate and Treat Any Restrictions?:: No Restrictions Consult to New Vehicle Sales Consultant [CONS] Routine Comment: Reason for Consult:: Social Service Consult 06/09/25 23:08 Consult to Respiratory Therapy [CONS] Routine Comment: Reason(s) for RT Consult:: Consult Attending Physician on discharge: VERO CHAIREZ [facility], PAMikeyC [facility] Date of Discharge: 06/12/25 DS: Diagnosis Discharge Diagnosis (1) Acute hypoxic respiratory failure: Status: Acute Problem details: - likely combination of HFpEF exacerbation, anemia - imaging consistent with Pulmonary Edema, L pneumonia - BNP 7580 in ED, previously 7400 - initiated IV Furosemide on 06/09, strict Is/Os, daily weights - RT following - noted to have increased work of breathing and increased LE edema on 06/10 in the afternoon, BIPAP initiated and 80mg IV Lasix given, moved to CCU status - 06/11: improved, stable on NC - stable TTE on 06/10/25 RESOLVED Prior to discharge, tolerating room air. Had been placed on BiPAP in setting of heart failure. Respiratory therapy assessed. No supplemental oxygen needs at time of discharge. (2) Anemia: Status: Acute Problem details: - Hemoglobin 7.4 on 06/09, s/p transfusion of 2U PRBCs - Suspect acute blood loss anemia given bruising, no known history of fall - recent CVA, recently on aspirin, transitioned to apixaban 5 mg b.i.d. on 05/23/2025 - HELD on admission 06/10 - FOBT has been ordered, pending Hemoglobin 9.9 day of discharge. Stools have been brown, no FOBT collected. (3) (HFpEF) heart failure with preserved ejection fraction: Status: Acute Problem details: - stable TTE, clinical exacerbation with respiratory failure - required course of BIPAP 06/10-06/11 (4) Pneumonia: Status: Acute Problem details: - suspected, acute hypoxic respiratory failure - CXR shows that superimposed left basilar pneumonia cannot be excluded. Leukocytosis with left shift, negative Procalcitonin - Empirically started cefepime 2 g IV q.8 hours given recent prolonged hospitalization and TCU stay Received 3 doses IV cefepime prior to discharge. Will continue with oral cefpodoxime for 40 course on discharge. (5) Elevated troponin: Status: Acute Problem details: - troponin 0.08 in ED, EKG c/w paced rhythm - peaked at 0.1 - TTE stable (6) Atrial fibrillation: Status: Chronic Problem details: - Previously chronically anticoagulated but discontinued Eliquis on his own due to cost - Metoprolol 12.5 mg b.i.d. added on 05/21/2025 - Apixaban 5 mg b.i.d. restarted on 05/23/2025 - HOLD - front desk monitor - SCDs for VTE PPX Apixaban held during course of hospital stay, restarted on discharge. Will need monitoring for recurrence of bleed. (7) Cardiac pacemaker: Status: Acute Problem details: - History of AFib, flutter, intermittent complete heart block, ventricular tachycardia (8) Diabetes mellitus type 2, insulin dependent: Status: Chronic Problem details: - Lantus increased to 18 units at bedtime 05/25/2025 - 9 units ordered on admission, adjust as necessary - Hold home glipizide and Metformin - Glucose checks ACHS, insulin sliding scale, hypoglycemia protocol Resume home medications on discharge (9) CKD stage 3b, GFR 30-44 ml/min: Status: Acute Problem details: - Creatinine 1.6 on admission, baseline 1.3-1.5 - Potassium 4.9, BUN 36 - 06/10: creatinine 1.5 with K of 4.8 - Avoid nephrotoxic medications, continuing home medications for now, continue to monitor Creatinine remains at 1.6 at discharge, near baseline. Continue to monitor with PCP. (10) Confusion: Status: Acute Problem details: - Per EMR, report of cognitive issues at baseline. PCP notes concern for memory loss 05/09/2025 - recent CVA - CT head 06/10 shows no new hemorrhage or infarcts - Monitor for delirium Had an episode of delirium over the weekend. Appears to be back at baseline. Consider outpatient formal neurocognitive testing at a later date. (11) CVA (cerebral vascular accident): Status: Acute Problem details: 05/15/2025 CTA showed left distal M1 occlusion, started on TNK, transferred to [facility]. 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 - reviewed with Dr. Ornelas of vascular surgery; recommends outpatient f/u if no acute bleeding - patient asymptomatic, Hgb stable Patient will need to have outpatient consult with vascular surgery scheduled DS: Summary Hospital Course Hospital Course: Admitted with anemia, hemoglobin 7.4, suspected acute blood loss anemia on anticoagulation, improved and stabilized > 9 following transfusion of 2 units PRBC. Apixaban was held during course of hospitalization. Resumed on discharge. Will need to be monitored for recurrent bleed. Follow-up repeat hemoglobin this week. Patient also noted to be hypoxic, acute hypoxic respiratory failure. Not just in the setting of anemia but also found to be a pneumonia as well as large pleural effusions with known history of HFpEF. IV diuresis was initiated. Patient is discharged on 40 mg Lasix twice daily for another 5 days. Will need to be readdressed prior to resuming home dose. Also initiated on IV antibiotics for pneumonia. Will discharge with 4 further days of oral antibiotic dosing. Incidentally, inguinal mass was noted. Discussed with vascular surgery and recommending outpatient consult. Status at Discharge Functional status at discharge: uses cane/walker Overall status at discharge: patient is back to baseline Time Spent with Patient Time attestation: Total time spent providing and/or coordinating discharge services: Time spent: Greater than 30 minutes Exam Narrative: Exam Narrative: PHYSICAL EXAM General: Pleasant, conversant, NAD Cardiovascular: RRR Pulmonary: No dyspnea Neurological: Alert, answering questions appropriately at the time Skin: Warm, dry. Const: Vital Signs, click to edit/add: Vital Signs - 24 hr 06/11/25 15:00 06/11/25 15:00 06/11/25 19:52 Temperature 98.1 F 98.7 F Pulse Rate Pulse Rate [Pulse Oximeter] 60 60 60 Respiratory Rate 22 22 22 Blood Pressure [Le ft Arm] 131/61 146/60 H Blood Pressure [r forearm] Pulse Oximetry 93 91 Oxygen Delivery Me thod Room Air Room Air 06/11/25 22:55 06/11/25 23:00 06/11/25 23:00 Temperature 98.0 F Pulse Rate 60 Pulse Rate [Pulse Oximeter] 61 Respiratory Rate 22 Blood Pressure [Le ft Arm] 83/73 L Blood Pressure [r forearm] 159/69 H Pulse Oximetry 93 Oxygen Delivery Me thod BiPAP 06/12/25 03:00 06/12/25 08:09 06/12/25 10:14 Temperature 98.2 F 98.1 F Pulse Rate 61 Pulse Rate [Pulse Oximeter] 60 60 Respiratory Rate 25 H 24 Blood Pressure [Le ft Arm] Blood Pressure [r forearm] 145/50 H 136/64 Pulse Oximetry 96 95 Oxygen Delivery Me thod BiPAP Room Air 06/12/25 11:17 Temperature 97.1 F L Pulse Rate Pulse Rate [Pulse Oximeter] 60 Respiratory Rate 18 Blood Pressure [Le ft Arm] Blood Pressure [r forearm] 118/61 Pulse Oximetry 97 Oxygen Delivery Me thod Room Air DS: Data Data Completed and Pending Labs on day of discharge: Labs from last 24 hours 06/12/25 05:54 WBC 7.76 RBC 3.20 L Hgb 9.9 L Hct 30.5 L MCV 95 MCH 31 MCHC 33 RDW Coeff of Margo 16.5 H Plt Count 257 Neut % (Auto) 84.1 H Lymph % (Auto) 3.9 L [place] % (Auto) 7.2 Eos % (Auto) 3.7 Baso % (Auto) 0.1 Neut # (Auto) 6.50 Lymph # (Auto) 0.30 L [place] # (Auto) 0.60 Eos # (Auto) 0.29 Baso # (Auto) 0.01 Abs Immat Gran (auto) 0.08 Imm/Tot Granulo (auto) 1.0 VBG pH 7.484 H VBG pCO2 39 L VBG pO2 < 30.1 VBG HCO3 29 H Sodium 133 L Potassium 4.1 Chloride 99 Carbon Dioxide 28 Anion Gap 6 L BUN 33 H Creatinine 1.6 H Estimated Creat Clear 31.47 Estimated GFR 41 Glucose 197 H Calcium 8.7 Magnesium 1.6 Imaging Chest x-ray: Attestation: I have reviewed the pertinent imaging results. Radiologist's impression: 06/10 Enlarged cardiac silhouette mild pulmonary edema without significant change left cardiac pacer retrocardiac atelectasis/consolidation. Small effusion. No pneumothorax. 06/09 Findings/Impression: Heart failure and pulmonary edema. Superimposed left basilar pneumonia not excluded. CT scan - abdomen: Attestation: I have reviewed the pertinent imaging results. Radiologist's impression: CT pelvis with intravenous contrast June 09, 2025; duplex ultrasound evaluation right inguinal area. TECHNIQUE: CT angio abdomen and pelvis with intravenous contrast; coronal and sagittal reformats; 100 cc of Omni 350 contrast was injected. FINDINGS: A 4.9 x 2.4 x 2.4 cm complex mass right inguinal area anterior to the right femoral vessels. There are peripheral calcifications identified. A central contrast collection measuring 9 x 6 mm in size; very difficult to identify a neck; possibly a tiny neck connecting to the common femoral artery slice 451 series 5. The inferior epigastric artery is unremarkable. No evidence of occlusive disease involving either the external iliac artery, common femoral artery or superficial femoral artery on the right side. Evidence of bilateral inguinal hernias. No hematoma identified in the groin on either side. Calcific atheromatous changes involving the abdominal aorta and iliac arteries without an occlusive disease. Visceral arteries are unremarkable. Total hip arthroplasty on the left side. No focal hepatic or splenic pathology. No pancreatic pathology. Gallstones. Large cortical cyst lower pole left kidney. A 2.6 cm calculus identified in the urinary bladder. Multiple enhancing areas identified within the thickened bladder wall. IMPRESSION: 1. 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 2. Large cortical cyst lower pole left kidney. 3. Bilateral pleural effusion. 4. Gallstones. 5. 2.6 cm stone in the urinary bladder. 6. Enlarged prostate gland. 7. Bilateral inguinal hernias. Venous US: Attestation: I have reviewed the pertinent imaging results. Radiologist's impression: Biphasic flow identified in the right external iliac artery, common femoral artery and the superficial femoral artery. A 5.3 x 2.2 x 1.1 cm lesion with calcifications identified appears to be originating from either the common femoral artery or proximal SFA. No pseudoaneurysm. No AV fistula. No hematoma identified. Impression: 1. 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 2. Suggest obtaining a CT angiography during arterial and venous phase imaging involving the right groin. Pelvis CT: Attestation: I have reviewed the pertinent imaging results. Radiologist's impression: Bones: No acute fracture. No lytic or blastic lesion. Joints: Left hip replacement. 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 No acute malalignment. No large effusion. Soft tissues: Mild bilateral flank edema. Possible thrombosed pseudoaneurysm noted along the right common femoral artery, no prior examination available for comparison. Consider ultrasound. Fat containing left inguinal hernia. Large bladder calculus with eccentric irregular areas of bladder wall thickening. Prostatomegaly. Impression: 1. Mild soft tissue edema with no organized hematoma or acute fracture or malalignment appreciated. 2. 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 Ultrasound would be recommended for further evaluation. 3. Large bladder calculus with eccentric irregular areas of bladder wall thickening. Differential includes chronic cystitis and neoplasm. CT scan - head: Attestation: I have reviewed the pertinent imaging results. Radiologist's impression: 1. 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 This is consistent with the findings of the previous CTA. 2. No new intracranial hemorrhage. No new infarcts. Discharge Plan Discharge Disposition: [facility] Discharge Location: [facility] Date of Admission: 06/09/25 23:46 Attending Provider on Discharge: Vero Chairez Primary Care Provider: Provider,Not a Local Condition: Improved Anticipated Discharge Date/Time: 06/12/25 12:26 Discharge Medications: New furosemide 40 mg tablet 40 mg PO BID Qty: 10 0RF cefpodoxime 200 mg tablet 200 mg PO BID Qty: 8 0RF Rx Instructions: must administer with a meal/food Continued rosuvastatin [Crestor] 20 mg tablet 20 mg PO HS losartan [Cozaar] 25 mg tablet 25 mg PO DAILY acetaminophen 325 mg tablet 650 mg PO Q4H PRN amlodipine 10 mg tablet 10 mg PO DAILY apixaban 5 mg tablet 5 mg PO BID insulin aspart U-100 100 unit/mL (3 mL) insulin pen 1 - 12 unit SUBCUT TIDWM Rx Instructions: Inject 0-12 units subcutaneous three times daily before meals. Give subcutaneous 3 times a day with meals per blood glucose (mg/dL). Don't give corrective dose for PRN, post-prandial or nocturnal glucose checks unless ordered. <70.............See Hypoglycemia Protocol;70- 149........No insulin, give prandial insulin, if ordered;150-199......2 units;200-249......4 units;250-299......6 units;300-349......8 units;350-399......10 units;400 or greater....12 units & call MD insulin glargine [Lantus Solostar U-100 Insulin] 100 unit/mL (3 mL) insulin pen 18 unit SUBCUT HS metformin 1,000 mg tablet 1,000 mg PO BIDWM metoprolol tartrate 25 mg tablet 12.5 mg PO BID polyethylene glycol 3350 17 gram/dose powder 17 g PO DAILY PRN Senna Plus 8.6-50 mg capsule 2 tab-cap PO BID PRN albuterol sulfate 2.5 mg /3 mL (0.083 %) solution for nebulization 2.5 mg inhalation TID Held furosemide 20 mg tablet 20 mg PO DAILY Hold Instructions: Resume on 06/18/25. Continue 40mg twice daily, resuming home dose on 06/18/25 or per follow up instructions. Discharge Orders: Discharge Order (Routine); Ordered 06/12/25 Ordered By: Vero Chairez Additional Instructions: CONTINUE LASIX 40 MG TWICE DAILY FOR AN ADDITIONAL 5 DAYS. BMP RECHECK IN 3-4 DAYS. RE-EVALUATE WITH PCP FOR FURTHER MEDICATION DOSING. HAS COMPLETED 3 DAYS IV ANTIBIOTICS FOR PNEUMONIA. TO COMPLETE ADDITIONAL 4 DAYS OF ORAL ANTIBIOTIC. HEMOGLOBIN HAS REMAINED STABLE FOLLOWING TRANSFUSION. APIXABAN HELD DURING HOSPITAL COURSE. OKAY TO RESUME APIXABAN. MONITORING FOR RECURRENT BLEED. HEMOGLOBIN CHECK IN 3-4 DAYS. WILL NEED OUTPATIENT FOLLOW-UP WITH VASCULAR SURGERY TO ADDRESS INGUINAL MASS. Activity Level: Activity as Tolerated Discharge Diet: Diabetic Follow Up Appointments: Provider,Not a Local [Primary Care Provider, Family Practice] Forms: [employer] Info Instructions Discharge Comments: POST HOSPITAL FOLLOW-UP VISIT 3-4 DAYS TO ADDRESS MEDICATION CHANGES AND LAB NEEDS Admit to: SNF Discharge Potential: Fair Length of Stay: <30 days Can use facility standing orders?: Yes Code Status: DNR/DNI Rehab Potential: Fair Therapy Orders Additional Information: RESUME PREVIOUS THERAPY ORDERS Oxygen: No Urinary Catheter: No Lab Orders: BMP AND HEMOGLOBIN IN 3-4 DAYS, FOLLOW-UP PCP Orders are good >30 days: No Signature: ELLIOTT OSEGUERA, PA-C [facility]
--- NOTE | 2025-06-12 12:34 | PC.NURSE ---
Report given to SHIRLENE Tapia at [address] [place] [address]. All questions answered. Will call back with an ETA of discharge time.
--- NOTE | 2025-06-12 12:43 | PC.SOCIAL ---
Discharge planning: Spoke with [facility] and confirmed pt is on bed hold at that facility. Called and secure emailed information to Jennifer in admissions stating pt is ready for discharge back today. Called family who states they will look for someone to transport pt back to [facility] today between 1:30-2:00. Family to call social services counselor back to confirm orange picker time.
--- NOTE | 2025-06-12 14:09 | PC.NURSE ---
End of shift note: Patient is pleasant and cooperative. Does not use call light. Bed alarm and chair alarm present. PIV's were discontinued and catheter intact as patient is set for discharge back to [facility] via non-emergent EMS. Patient is pleaseantly confused at baseline. Bed bath give this morning. Had 2 BMs today. Incontinent of urine at times. VSS. Lung sounds have crackles but maintaining saturations of 91-95% on RA. Bowel sounds active. No blood seen in stool. Senna was given to help patient have a BM today and that was successful. Bruise on right hip is healing. Patient denies pain. Has 1+ edema in bilateral extremities. Patient will discharge as soon as EMS arrives.
== END 2025-06-12 14:52 | DRG 189 ==
LOC: ED 21:15 → MEDSURG 22:07
PROVIDERS: Admitting Provider Physician Assistant; Emergency Provider Family Medicine; Visit Provider Family Medicine
DX: J96.01 Acute respiratory failure with hypoxia (principal); I50.33 Acute on chronic diastolic (congestive) heart failure; J18.9 Pneumonia, unspecified organism; I13.0 Hypertensive heart and chronic kidney disease with heart failure and stage 1 through stage 4 chronic kidney disease, or unspecified chronic kidney disease; D62 Acute posthemorrhagic anemia; I69.351 Hemiplegia and hemiparesis following cerebral infarction affecting right dominant side; I44.2 Atrioventricular block, complete; E87.1 Hypo-osmolality and hyponatremia; I48.20 Chronic atrial fibrillation, unspecified; I69.320 Aphasia following cerebral infarction; R41.0 Disorientation, unspecified; R19.03 Right lower quadrant abdominal swelling, mass and lump; S70.01XA Contusion of right hip, initial encounter; N18.32 Chronic kidney disease, stage 3b; E11.22 Type 2 diabetes mellitus with diabetic chronic kidney disease; R79.89 Other specified abnormal findings of blood chemistry; I72.4 Aneurysm of artery of lower extremity; R53.1 Weakness; Z79.01 Long term (current) use of anticoagulants; Z79.84 Long term (current) use of oral hypoglycemic drugs; Z79.82 Long term (current) use of aspirin; Z95.0 Presence of cardiac pacemaker; Z79.4 Long term (current) use of insulin; E78.5 Hyperlipidemia, unspecified
CPT/HCPCS: 36415; 36430; 70450; 71045; 72193; 74174; 80048; 80076; 81001; 82270; 82803; 82962; 83735; 83880; 84145; 84484; 85018; 85025; 85027; 86140; 86850; 86900; 86901; 86922; 87081; 87086; 87449; 87899; 93005; 93306; 93926; 94660; 94761; 97110; 97116; 97161; 97165; 97530; 97535; 99284; 99285; A9270; J0692; J1815; J1938; J3480; J7030; P9016; Q9967

== ENCOUNTER 2025-06-12 14:49 | Outpatient (CLI) | payer MEDICARE, BC, SELFPAY | END 2025-06-12 14:50 | disposition home or self-care (01) | PROVIDERS: Visit Provider Student in an Organized Health Care Education/Training Program | DX: J96.01 Acute respiratory failure with hypoxia (principal); D64.9 Anemia, unspecified; J18.9 Pneumonia, unspecified organism | CPT/HCPCS: A0425; A0428 ==

== ENCOUNTER 2025-08-07 17:18 | Outpatient (REF) | payer MEDICARE, BC, SELFPAY ==
[2025-08-07 18:17] LABS: Appearance Urine Slightly Cloudy (Clear)
--- OUTSIDE RECORDS SUMMARY | 2025-08-08 00:14 | XMS_ITS | Encounter Summary ---
Author Organization [facility] Address [address] [place] [address] Care Team Providers Care Digital Advertising Specialist Name Role Phone Brionna Thapa APRN, C.N.P. Primary Care Provide r Reason for Visit * Reason Onset Date Comments CHW Referral 07/17/2025 Encounter Details Date Type Department Care Team (Late st Contact Info) Description 07/17/2025 Clinical Communication Department of Family Medicine, [facility], in [place], [place] [address] [facility] [place] [address] Alissa Rebollar [address] [place] [address] CHW Referral Social History Tobacco Use Types Packs/Day Years Used Date Smoking Tobacco: Never Smokeless Tobacco: Never Alcohol Use Standard Drinks/Week Comments Not Currently 0 (1 standard drink = 0.6 oz pur e alcohol) [facility] Utilities Answer Date Recorded In the past 12 months has e [employer], gas, oil, or water [employer] threatened to shut off services in your [...] your living situation today? 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 NO answer, left requesting acall back to [phone]. Aleyda Delgado-CHW documented in this encounter Plan of Treatment Not on file documented as of this encounter Visit Diagnoses Not on filedocumented in this encounter Additional Health Concerns Assessment Noted Time A fall risk assessment has been complete d for the patient 12/11/2020 10:57 AM CUSTOMER ACCOUNT TECHNICIAN documented as of this encounter Care Teams Digital Advertising Specialist Relationship Specialty Start Date End Date Brionna Thapa, JAKOB, C.N.P. [facility] [place] [address] PCP - General 04/28/25 documented as of this encounter
--- OUTSIDE RECORDS SUMMARY | 2025-08-08 00:14 | XMS_ITS | Clinical Summary ---
Author Organization [facility] Address [address] [place] [address] Care Team Providers Care Platform Inspector Name Role Phone Brionna Thapa APRN, C.N.P. Primary Care Provide r Source Comments Patient records contain information from all sites at [facility]. For routine questions regarding patient records, call [phone] during business hours, M-F 8:00 AM - 5:00 PM Central Time. Record requests for emergency care only can be directed to [phone] at any time.[facility] Allergies Active Allergy Reactions Criticality Noted Date Comments Daniel Inhibitors Edema (Reselect Reaction) 09/07/2018 Colchicine Other (see comments) Low 12/01/2018 Balance problems Sulfa (Sulfonamide Antibiotics) Rash 02/07/2013 Medications pen needle, diabetic (Comfort EZ Pen [place]) 31 gauge x 1/4 needle 10 Units [...] in syncope Following with Cardiology at [facility] Chronic Kidney Disease (CKD) , Stage 3a Glomerular Filtration Rate (GFR) 45 To 59 11/01/2019 Nursing Home (Current) Anticoagulant Treatment 10/01 Diabetes Mellitus Type [...] his sinus node and AV node disease. [id number]-Motg score at least 3 (HTN, age-2) On [...] bpm, resolving during the remaining echo images. 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 Diabetes Mellitus Type 2 With Diabetic Chronic Kidney Disease (HCC) 05/11/2025 Results Follow-Up Department of Family Medicine in [place], [place] [address] [place] [phone] Brionna Thapa APRN, C.N.P. ECG 12 Lead 05/10/2025 10:14 AM CDT - 05/10/2025 11:59 PM CDT Hospital Encounter Department of Laboratory Medicine in [address] [phone] Brionna Thapa APRN, C.N.PBerry Pain Chest Discharge Disposition: Home or Self Care 05/09/2025 3:00 PM CDT Office Visit Department of Family Medicine in [place] [address] [place] [address] Zita Rooney R.N. Annual Medicare Examination Return (Primary Dx) 05/09/2025 2:30 PM CDT Office Visit Department of Family Medicine in [place] [address] [place] [address] Brionna Thapa APRN, C.N.P. Advanced Care Planning [...] Hospital Encounter Department of Laboratory Medicine in [address] [phone] Juve Wade M.D. 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 I have a [facility] place to live 05/09/2025 Sex and Gender Information Value Date Recorded Sex Assigned at Male 08/20/2021 10:13 AM CDT Legal Sex Male 4:47 PM HIDE TRIMMER Gender Identity Not on file Sexual Orientation [...] 2025 09/10/2024, 10/07/2023, 10/07/2023, Additional history exists Influenza Vaccine (#1) 2025 , 08/26/2022, 08/26/2021, Additional history exists Urine Albumin 08/08/2025 08/08/2024, 08/30, 11/18/2021, Additional history exists Hemoglobin A1C 11/15/2025 05/16/2025, 04/30, 11/18/2024, Additional history exists Diabetic Eye Exam 01/11/2026 01/11/2025 (Pe rformed elsewhere), 08/20/2022 (Performed elsewhere), 08/21/2020 (Performed elsewhere), Additional history exists Visit: Chronic Disease, age 18+ 05/09/2026 05/09/2025, 05/09/2025 Visit: Medicare Annual Wellness 05/10/2026 05/09/2025 Creatinine Level (Kidney Function Test) 07/04/2026 07/04/2025, 06/20/2025, 06/06/2025, Additional history exists Potassium Level 07/04/2026 07/04/2025, 05/31, 06/06/2025, Additional history exists Sodium Level 07/04/2026 07/04/2025, 05/31, 06/06/2025, Additional history exists Pneumococcal vaccine (50+ years) Completed 07/11/2015, 02/16/2007 Depression Screening (Annual PHQ-2) Completed 05/09/2025, 05/09/2025 Fall Risk Screen (Annual) Completed 05/09/2025 IPV Vaccines Aged Out No longer eligi ble based on patient's age to complete this topic Medical Devices Implanted 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 at [facility] Mesh or Patch Left: Abdomen Medtronic 02/28/2024 [id number] / / [id number] Msh Prt Una Rt 12x8 - [id number] Implanted:Qty : 1 on 03/18/2021 by Solis Mike M.D. at [facility] Mesh or Patch Left: Abdomen Medtronic 02/27/2025 [id number] / / [id number] Pacemaker Pacemaker Chest Wall Procedures Procedure Name [...] MUSE QTC Interval 521 ms MUSE R [place] -85 degrees MUSE T Wave [place] 93 degrees MUSE 05/10/2025 10:2 7 AM [...] ADD-ON Final Re sult Performing Organization Address [facility]/ZIP Co de Phone Number [facility] [address] [place] [address], [facility] NPRG [place] [address] [place] [address] * (ABNORMAL) Hemoglobin A1c (05/09/2025 2:28 PM [...] ADD-ON Final Re sult Performing Organization Address City/[facility]/ZIP Co de Phone Number [facility] [address] [place] [address], [facility] NPR[facility] [place] [address] [place] [address] * (ABNORMAL) Basic Metabolic Panel (05/09/2025 2:28 [...] M.D. LAB BLOOD ADD-ON Final Re sult [facility] [address] [place] [address], [place] NPR[facility] [address] [place] [address] * (ABNORMAL) Albumin, Random, Urine (08/08/2024 9:14 AM CDT) Microalbumin 45.0 mg/L 08/08/2024 12:26 PM CDT NPRG Creatinine 119 mg/dL 08/08/2024 12:26 PM CDT NPRG Albumin/Creatinin e Ratio 38(H) <17 mg/g 08/08/2024 12:26 PM CDT NPRG Urine (Urine, Midstream) 08/08/2024 9:14 AM CDT 08/08/2024 11:39 AM CDT us Juve Wade M.D. LAB URINE ORDERABLES Kailey ciara Result [facility] [address] [place] [address], [place] [facility] [address] [place] [address] from Last 3 Months or Most Recently Relevant to Health Maintenance Insurance MEDICARE [id number] Advance Directives For more information, please contact: [phone] * Full Code (Latest Code Status on File) Date Activated Date Inactivated Comments 03/18/2021 10:54 AM 03/19/2021 3:48 PM Question Answer Comments Full Code: Discussed * Full Code Date Activated Date Inactivated Comments 10/26/2019 12:10 AM 10/26/2019 4:06 PM Question Answer Comments Full Code: Discussed Care Teams Platform Inspector Relationship Specialty Start Date End Date Brionna Thapa APRN, C.N.P. [address] [place] [address] PCP - General 04/28/25
--- OUTSIDE RECORDS SUMMARY | 2025-08-08 00:14 | XMS_ITS | Clinical Summary ---
Author Organization [facility] Address [facility] [place] [address] Care Team Providers Care Manager Imaging Name Role Phone Pcp, No Primary Care Provider Unavailabl e Allergies Active Allergy Reactions Criticality Noted Date Comments Daniel Inhibitors Edema 09/07/2018 Colchicine Dizziness Low 12/01/2018 Balance problems Sulfa (Sulfonamide Antibiotics) Rash 11/30 Medications metFORMIN 1,000 mg tablet Take 1,000 mg by mouth two times daily with meals. Active acetaminophen 325 mg tabletIndications:P ain Take 2 Tablets (650 mg) by mouth every 4 hours if needed for Pain. Max acetaminophen dose: 4000mg in 24 hrs. 60 Tablet 06/01/20 25 Active amLODIPine 10 mg tabletIndications:E ssential hypertension Take 1 Tablet (10 mg) by mouth once daily. 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 60 Tablet 06/01/20 25 Active insulin aspart (U-100) 100 unit/mL (3 mL) penIndications:Type 2 diabetes mellitus with stage 3 chronic kidney disease, with long-term current use of insulin, unspecified whether stage 3a or 3b CKD (HC) Inject 0-12 units subcutaneous three times daily before meals. Give subcutaneous 3 times a day with meals per blood glucose (mg/dL). Don't give corrective dose for PRN, post-prandial or nocturnal glucose checks unless ordered. <70............. See Hypoglycemia Protocol;70-149. .......No insulin, give prandial insulin, if ordered;150-199. .....2 units;200-249... ...4 units;250-299... ...6 units;300-349... ...8 units;350-399... ...10 units;400 or greater....12 units & call MD 6 mL 1 06/01/20 25 Active Lantus Solostar U-100 Insulin 100 unit/mL (3 mL) penIndications:Type 2 diabetes mellitus with stage 3 chronic kidney disease, with long-term current use of insulin, unspecified whether stage 3a or 3b CKD (HC) Inject 18 units subcutaneous before bedtime. 6 mL 1 06/01/20 25 Active losartan 25 mg tabletIndications:E ssential hypertension Take 1 Tablet (25 mg) by mouth once daily. 30 Tablet 1 06/01/20 25 Active metoprolol tartrate 25 mg tabletIndications:P AF (paroxysmal atrial fibrillation) (HC) Take 0.5 Tablets (12.5 mg) by mouth two times daily. Hold if sbp < 100 or hr < 55 30 Tablet 06/01/20 25 Active polyethylene glycol 17 g per packet packetIndications:O ther constipation Mix 17 g in liquid then take by mouth once daily if needed for Constipation. 30 Packet 06/01/20 25 Active rosuvastatin 20 mg tabletIndications:D iabetes mellitus type II, non insulin dependent (HC) Take 1 Tablet (20 mg) by mouth at bedtime. 30 Tablet 06/01/20 25 Active Sennosides 17.2 mg tabIndications:Othe r constipation Take 17.2 mg by mouth 2 times daily if needed (constipation). 60 Tablet 06/01/20 25 Active Active Problems Patient Care Coordination No te [...] with significant first degree AV block with ME interval of approximately 440 ms with right bundle branch block and left axis deviation. I have no previous ECG to compare. Resting heart rate was 55, so would be bradycardic. Resting blood pressure 160/70. Patient was started in Stage 1 of the Sowaldo protocol and exercised a total duration of [...] bpm, resolving during the remaining echo images. [id number] score at least 3 (HTN, age-2) On [...] Encounters Date Type Department Care Team Description 08/07/2025 Lab Requisition [facility] [phone] Mary Vasquez NP 08/03/2025 Patient Outreach [facility] [address] [place] [address] Coby Parson, EVENT EXECUTIVE Rehab Transitions Care Coordination - [facility] 07/18/2025 Lab Requisition [facility] [phone] Mray Vasquez NP 07/06/2025 Patient Outreach [facility] [address] [place] [address] Coby Parson, EVENT EXECUTIVE Rehab Transitions Care Coordination - [facility] 06/30/2025 Lab Requisition [facility] [phone] John Russ MD 06/15/2025 Lab Requisition [facility] [phone] John Russ MD 06/10/2025 4:10 PM CDT Ancillary Procedure [facility] [address] [place] [address] 06/01/2025 Lab Requisition [facility] [phone] John Russ MD 06/01/2025 Orders Only [facility] [address] [place] [address] Toño Luna MD <No scans attached> 05/29/2025 Travel 05/19/2025 5:23 PM CDT - 06/01/2025 10:00 AM CDT Hospital Encounter [facility] [address] [place] [address] Toño Luna MD Type 2 diabetes mellitus with stage 3 chronic kidney disease, with long-term current use of insulin, unspecified whether stage 3a or 3b CKD (HC) (Primary Dx); Acute ischemic left MCA stroke (HC); Other urinary incontinence; Pain; PAF/flutter ; Other constipation; Essential hypertension; Diabetes mellitus type II, non insulin dependent (HC) Discharge Disposition: Halfway Facility 05/16/2025 Telephone [employer] [facility] [address] [facility] [address] [place] [id number] Carline Cardenas, SHIRLENE Device Check (MRI Checklist ) 05/15/2025 9:14 PM CDT - 05/19/2025 5:00 PM CDT Hospital Encounter [facility] [address] [place] [address] Mello Casanova MD [facility], [facility] Of Cerebrovascular accident (CVA), unspecified mechanism (HC) (Primary Dx); Other problems related to housing and economic circumstances; Transportation insecurity Discharge Disposition: Rehab Facility or Unit 05/15/2025 Office Visit [address] [address] Zoie Faye MD from Last 3 Months [...] on file Legal Sex Male 7:53 AM BOOK AUTHOR Gender Identity Not on file Sexual Orientation [...] st Contact Info) Description 10/11/2025 11:30 AM BOOK AUTHOR Cardiac Device Check [facility] at [address] [address] Health Maintenance Due Date Last Done Comments [...] 11/24/2019, Additional history exists COVID-19 vaccine series (2023- season) 2025 09/10/2024, 10/07/2023, 10/06/2022, Additional history exists Influenza Vaccine (#1) 2025 Hepatitis B series for 19+ Aged Out N o longer eligible based on patient's age to complete this topic Medical Devices Implanted Type Area Retail Pharmacy Manager Device Identifier Shelf Expiration Date Model / Serial / Lot Dual Chamber Mri 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 by Ming Hammond MD (Quantity not on file) Standard Pacemaker [employer] PERFECTO XT DR MRI [id number] / [id number] / Procedures Procedure Name Priority Date/Time Associated Diagnosis Comments HEMOGLOBIN Routine 07/25/2025 7:10 AM CDT Anemia, unspecified CBC WITH AUTO DIFFERENTIAL Routine 07/04/2025 10:23 AM CDT Anemia, unspecified Chronic kidney disease, stage 3 unspecified (HC) Essential (primary) hypertension BASIC METABOLIC PANEL Routine 07/04/2025 10:23 AM CDT Anemia, unspecified Chronic kidney disease, stage 3 unspecified (HC) Essential (primary) hypertension CBC WITH AUTO DIFFERENTIAL Routine 07/04/2025 10:23 AM CDT Anemia, unspecified Chronic kidney disease, stage 3 unspecified (HC) Essential (primary) hypertension RED CELL MORPHOLOGY Routine 06/20/2025 7 :28 AM CDT Anemia, unspecified Acute systolic (congestive) heart failure (HC) PLATELET ESTIMATE Routine 06/20/2025 7:2 8 AM CDT Anemia, unspecified Acute systolic (congestive) heart failure (HC) MANUAL DIFFERENTIAL Routine 06/20/2025 7 :28 AM CDT Anemia, unspecified Acute systolic (congestive) heart failure (HC) CBC WITH AUTO DIFFERENTIAL Routine 06/20/2025 7:28 AM CDT Anemia, unspecified Acute systolic (congestive) heart failure (HC) BASIC METABOLIC PANEL Routine 06/20/2025 7:28 AM CDT Anemia, unspecified Acute systolic (congestive) heart failure (HC) CBC WITH AUTO DIFFERENTIAL Routine 06/20/2025 7:28 AM CDT Anemia, unspecified Acute systolic (congestive) heart failure (HC) ECHO TTE LIMITED WO CONTRAST W COLOR W LTD DOPPLER Routine 06/10/2025 4:46 PM CDT CHF (congestive heart failure) (HC) CBC WITH AUTO DIFFERENTIAL Routine 06/06/2025 7:19 [...] from Last 3 Months Results * (ABNORMAL) HEMOGLOBIN (07/25/2025 7:10 AM CDT) Only the most recent of2 resultswithin the time period is included. Pathologist [facility] HEMOGLOBIN 9.3(L) 13.5 - 17.5 g/dL 07/25/2025 9:16 AM CDT [facility] MCV 94 80 - 100 fL 07/25/2025 9:16 AM CDT [facility] Blood BLOOD SPECIMEN / Unknown Venipuncture / Unknown 07/25/2025 7:10 AM CDT 07/25/2025 8:57 AM CDT us Mary Vasquez NP HEMATOLOGY Final Resul t [facility] [address] [place] [address] * (ABNORMAL) CBC WITH AUTO DIFFERENTIAL (07/04/2025 10:23 AM CDT) Only the most recent of4 resultswithin the time period is included. WHITE BLOOD COUNT 5.7 4.5 - 11.0 thou/cu mm 07/04/2025 12:18 PM CDT [facility] RED BLOOD COUNT 2.82(L) 4.30 - 5.90 mil/cu mm 07/04/2025 12:18 PM CDT [facility] HEMOGLOBIN 8.4(L) 13.5 - 17.5 g/dL 07/04/2025 12:18 PM CDT [facility] HEMATOCRIT 27.0(L) 37.0 - 53.0 % 07/04/2025 12:18 PM CDT [facility] MCV 96 80 - 100 fL 07/04/2025 12:18 PM CDT [facility] MCH 29.8 26.0 - 34.0 pg 07/04/2025 12:18 PM CDT [facility] MCHC 31.1(L) 32.0 - 36.0 g/dL 07/04/2025 12:18 PM CDT [facility] RDW 15.0 11.5 - 15.5 % 07/04/2025 12:18 PM CDT [facility] PLATELET COUNT 346 140 - 440 thou/cu mm 07/04/2025 12:18 PM CDT [facility] MPV 9.8 6.5 - 11.0 fL 07/04/2025 12:18 PM CDT [facility] NRBC 0.0 % 07/04/2025 12:18 PM CDT [facility] ABS NRBC 0.0 thou /cu mm 07/04/2025 12:18 PM CDT [facility] % NEUT 74.6 % 07/04/2025 12:18 PM CDT [facility] % LYMPH 12.9 % 07/04/2025 12:18 PM CDT [facility] % MONO 7.6 % 07/04/2025 12:18 PM CDT [facility] % EOS 3.5 % 07/04/2025 12:18 PM CDT [facility] % BASO 1.2 % 07/04/2025 12:18 PM CDT [facility] % IMMATURE GRAN (METAS,MYELOS,ME OS) 0.2 % 07/04/2025 12:18 PM CDT [facility] ABSOLUTE NEUTROPHILS 4.2 1.7 - 7.0 thou/cu mm 07/04/2025 12:18 PM CDT [facility] ABSOLUTE LYMPHOCYTES 0.7(L) 0.9 - 2.9 thou/cu mm 07/04/2025 12:18 PM CDT [facility] ABSOLUTE MONOCYTES 0.4 <0.9 thou/cu mm 07/04/2025 12:18 PM CDT [facility] ABSOLUTE EOSINOPHILS 0.2 <0.5 thou/cu mm 07/04/2025 12:18 PM CDT [facility] ABSOLUTE BASOPHILS 0.1 <0.3 thou/cu mm 07/04/2025 12:18 PM CDT [facility] ABSOLUTE IMMATURE GRANULOCYTES(MET ,MYELOS,PROS) 0.0 <0.3 thou/cu mm 07/04/2025 12:18 PM CDT [facility] Blood BLOOD SPECIMEN / Unknown Butterfly / Unknown 07/04/2025 10:23 AM CDT 07/04/2025 11:50 AM CDT us John Russ MD HEMATOLOGY Final Result [facility] [address] [place] [address] * (ABNORMAL) BASIC METABOLIC PANEL (07/04/2025 10:23 AM CDT) Only the most recent of8 resultswithin the time period is included. SODIUM 139 136 - 145 mmol/L 07/04/2025 1:03 PM CDT [facility] POTASSIUM 4.8 3.5 - 5.1 mmol/L 07/04/2025 1:03 PM CDT [facility] CHLORIDE 104 98 - 107 mmol/L 07/04/2025 1:03 PM CDT [facility] CO2,TOTAL 23 22 - 29 mmol/L 07/04/2025 1:03 PM CDT [facility] ANION GAP 12 5 - 18 07/04/2025 1:03 PM CDT [facility] GLUCOSE 192(H) 70 - 99 mg/dL 07/04/2025 1:03 PM CDT [facility] CALCIUM 9.0 8.8 - 10.4 mg/dL 07/04/2025 1:03 PM CDT [facility] Comment: Reference ranges for this test were updated on 10/04/2024 to reflect our healthy population more accurately. Reference range changes are not retroactively applied to results, but previous results using the same methodology can be interpreted in the context of the new reference range. BUN 20 8 - 23 mg/dL 07/04/2025 1:03 PM CDT [facility] CREATININE 1.28(H) 0.70 - 1.20 mg/dL 07/04/2025 1:03 PM CDT [facility] BUN/CREAT RATIO 16 10 - 20 1:03 PM CDT [facility] eGFR 54(L) >90 mL/min/1. 73m2 07/04/2025 1:03 PM CDT [facility] Comment:As of 2022, eG FR is calculated by the CKD-EPI creatinine equation without race adjustment. eGFR can be influenced by muscle mass, exercise, and diet. The reported eGFR is an estimation only and is only applicable if the renal function is stable. Blood BLOOD SPECIMEN / Unknown Butterfly / Unknown 07/04/2025 10:23 AM CDT 07/04/2025 11:50 AM CDT John Russ MD CHEMISTRY Final Result Performing Organization Address [facility] de Phone Number [facility] [address] [place] [address] * (ABNORMAL) RED CELL MORPHOLOGY (06/20/2025 7:28 AM CDT) ACANTHOCYTES Few 06/20/2025 9:40 AM CDT [facility] ECHINOCYTES Moderate 06/20/2025 9:40 AM CDT [facility] ELLIPTOCYTES Few 06/20/2025 9:40 AM T [facility] RBC COMMENT Present(A) RBC morphology appears normal, RBC morphology within normal limits for newborns. 06/20/2025 9:40 AM CDT [facility] Blood BLOOD SPECIMEN / Unknown Venipuncture / Unknown 06/20/2025 7:28 AM CDT 06/20/2025 8:37 AM CDT us John Russ MD HEMATOLOGY Final Result Performing Organization Address [facility]/ZIP Co de Phone Number [facility] [address] [place] [address] * PLATELET ESTIMATE (06/20/2025 7:28 AM CDT) PLATELET ESTIMATE Adequate Adequate, No estimate 06/20/2025 9:40 AM CDT [facility] Blood BLOOD SPECIMEN / Unknown Venipuncture / Unknown 06/20/2025 7:28 AM CDT 06/20/2025 8:37 AM CDT us John Russ MD HEMATOLOGY Final Result [facility] [address] [place] [address] * (ABNORMAL) MANUAL DIFFERENTIAL (06/20/2025 7:28 AM CDT) % NEUTROPHILS 80.0 % 06/20/2025 9:40 AM [facility] % LYMPHOCYTES 13.0 % 06/20/2025 9:40 AM [facility] % MONOCYTES 1.0 % 06/20/2025 9:40 AM [facility] % EOSINOPHILS 5.0 % 06/20/2025 9:40 AM [facility] % BASOPHILS 1.0 % 06/20/2025 9:40 AM [facility] NEUTROPHILS ABSOLUTE 4.2 1.7 - 7.0 thou/cu mm 06/20/2025 9:40 AM [facility] LYMPHOCYTES ABSOLUTE 0.7(L) 0.9 - 2.9 thou/cu mm 06/20/2025 9:40 AM [facility] MONOCYTES ABSOLUTE 0.1 <0.9 thou/cu mm 06/20/2025 9:40 AM [facility] EOSINOPHILS ABSOLUTE 0.3 <0.5 thou/cu mm 06/20/2025 9:40 AM [facility] BASOPHILS ABSOLUTE 0.1 <0.3 thou/cu mm 06/20/2025 9:40 AM T [facility] Blood BLOOD SPECIMEN / Unknown Venipuncture / Unknown 06/20/2025 7:28 AM CDT 06/20/2025 8:37 AM CDT us John Russ MD HEMATOLOGY Final Result [facility] [address] [place] [address] * ECHO TTE LIMITED WO CONTRAST W COLOR W LTD DOPPLER (06/10/2025 4:46 PM CDT) AORTIC VALVE MEAN PG 8 mmHg EJECTION FRACTION 69 % LVEDD 4.5 cm Anatomical Region Laterality Modality Ultrasound 06/10/2025 4:22 PM CDT Narrative 06/10/2025 7:14 PM CDT ECHOCARDIOGRAM BECCA Ng [facility] : 1935 89 years Study Date: 06/10/2025 4:22:18 PM Gender: M BP: 143/70 mmHg Height: 173.00 cm BSA: 2.29 m Weight: 118.00 kg Tech: KAILEY Referring MD: KAYE CROWE Site: [facility] Reading Location: Mobile IP Patient Location: Inpatient. Procedure: Limited 2D , Color Doppler and Limited Spectral Doppler. Indication for study: CHF Cardiac Rhythm: Regular.Study quality: Good. Final Impressions: Limited Echocardiogram performed 1. Normal left ventricular size, mildly increased wall thickness, normal global systolic function, calculated EF of 69 %. 2. The aortic valve is trileaflet and calcified, no stenosis and no regurgitation. 3. The mitral valve is sclerotic, trace mitral regurgitation. Severe MAC present. 4. No pericardial effusion. Chamber Sizes and Function Normal left ventricular size, mildly increased wall thickness, normal global systolic function, calculated EF of 69 %. Valves, RV Pressures and Diastolic Function The aortic valve is trileaflet and calcified, no stenosis and no regurgitation. The mitral valve is sclerotic, trace mitral regurgitation. Severe mitral annular calcification is present. TTE images do not appear adequate for transcather intervention with patient supine. Masses, Effusion, Shunts There is no pericardial effusion. MEASUREMENTS AND CALCULATIONS 2-D Measurements and LV Function: LVID (d) 4.4 cm Planimetered EF 69 % LVID (s) 2.9 cm LV FS% (2D) 36 % IVS (d) 1.4 cm LVOT diameter 2.3 cm Ao Sinus 3.6 cm HR 60 bpm Ao Sinus ULN 4.2 cm * Asc Ao 3.7 cm Asc Ao ULN 4.4 cm * * Input BSA and age are outside of ranges, reported values correspond to BSA = 2.1 and Age = 82 Aortic Valve: Vmax 1.9 m/s MARIA T (V) 2.24 cm VTI 0.42 m MARIA T (I) 2.39 cm LVOT V max 1.1 m/s Max PG 15 mmHg LVOT VTI 0.25 m Mean PG 8 mmHg SV 100 ml Dim Index 0.58 SV index 44 ml/m CO 6.0 l/min CI 2.6 l/min/m . This study was interpreted by an [facility] accredited facility. CC: HIM (med records) [facility], Med/Surg - IP [facility]. Final Procedure Note Alonzo Valenzuela MD - 06/10/2025 ECHOCARDIOGRAM BECCA Ng [facility] : 1935 89 years Study Date: 06/10/2025 4:22:18 PM Gender: M BP: 143/70 mmHg Height: 173.00 cm BSA: 2.29 m Weight: 118.00 kg Tech: KAILEY Referring MD: KAYE CROWE Site: [facility] Reading Location: Mobile IP Patient Location: Inpatient. Procedure: Limited 2D , Color Doppler and Limited Spectral Doppler. Indication for study: CHF Cardiac Rhythm: Regular.Study quality: Good. Final Impressions: Limited Echocardiogram performed 1. Normal left ventricular size, mildly increased wall thickness, normalglobal systolic function, calculated EF of 69 %. 2. The aortic valve is trileaflet and calcified, no stenosis and noregurgitation. 3. The mitral valve is sclerotic, trace mitral regurgitation. Severe MACpresent. 4. No pericardial effusion. Chamber Sizes and Function Normal left ventricular size, mildly increased wall thickness, normalglobal systolic function, calculated EF of 69 %. Valves, RV Pressures and Diastolic Function The aortic valve is trileaflet and calcified, no stenosis and noregurgitation. The mitral valve is sclerotic, trace mitral regurgitation.Severe mitral annular calcification is present. TTE images do not appearadequate for transcather intervention with patient supine. Masses, Effusion, Shunts There is no pericardial effusion. MEASUREMENTS AND CALCULATIONS 2-D Measurements and LV Function: LVID (d) 4.4 cm Planimetered EF69 % LVID (s) 2.9 cm LV FS% (2D)36 % IVS (d) 1.4 cm LVOT diameter2.3 cm Ao Sinus 3.6 cm HR60 bpm Ao Sinus ULN 4.2 cm * Asc Ao 3.7 cm Asc Ao ULN 4.4 cm * * Input BSA and age are outside of ranges, reported values correspond to BSA = 2.1 and Age = 82 Aortic Valve: Vmax 1.9 m/s MARIA T (V) 2.24 cm VTI 0.42 m MARIA T (I) 2.39 cm LVOT V max 1.1 m/s Max PG 15 mmHg LVOT VTI 0.25 m Mean PG 8 mmHg SV 100 ml Dim Index 0.58 SV index 44 ml/m CO 6.0 l/min CI 2.6 l/min/m . This study was interpreted by an [facility] accredited facility. CC: HIM (med records) [facility], Med/Surg - IP [facility]. Final Kaye Crowe MD ECHO ORD Final Resu lt * (ABNORMAL) GLUCOSE METER (06/01/2025 8:15 AM CDT) Only the most recent of73 resultswithin the time period is included. [facility] Signature GLUCOSE METER 169(H) 65 - 100 mg/dL 06/01/2025 8:16 AM CDT [facility] Blood BLOOD SPECIMEN / Unknown 06/01/2025 8:15 AM CDT 06/01/2025 8:16 AM CDT us Toño Luna MD CHEMISTRY Final Result [facility] [address] [place] [address], [place] * SODIUM (05/31/2025 8:17 AM CDT) SODIUM 138 136 - 145 mmol/L 05/31/2025 9:07 AM CDT [facility] Blood BLOOD SPECIMEN / Unknown Venipuncture / Unknown 05/31/2025 8:17 AM CDT 05/31/2025 8:40 AM CDT us Mello Casanova MD CHEMISTRY Final Result Performing Organization Address City/[facility]/ZIP Co de Phone Number [facility] [address] [place] [address], [place] * (ABNORMAL) POTASSIUM (05/31/2025 8:17 AM CDT) Only the most recent of2 resultswithin the time period is included. POTASSIUM 5.3(H) 3.5 - 5.1 mmol/L 05/31/2025 9:07 AM CDT [facility] Blood BLOOD SPECIMEN / Unknown Venipuncture / Unknown 05/31/2025 8:17 AM CDT 05/31/2025 8:40 AM CDT us Mello Casanova MD CHEMISTRY Final Result Performing Organization Address City/[facility] Co de Phone Number [facility] [address] [place] [address], [place] * (ABNORMAL) CREATININE (05/31/2025 8:17 AM CDT) eGFR 45(L) >90 mL/min/1.7 3m2 05/31/2025 9:07 AM CDT [facility] Comment:As of 2022, eG FR is calculated by the CKD-EPI creatinine equation without race adjustment. eGFR can be influenced by muscle mass, exercise, and diet. The reported eGFR is an estimation only and is only applicable if the renal function is stable. CREATININE 1.49(H) 0.70 - 1.20 mg/dL 05/31/2025 9:07 AM CDT [facility] Blood BLOOD SPECIMEN / Unknown Venipuncture / Unknown 05/31/2025 8:17 AM CDT 05/31/2025 8:40 AM CDT us Mello Casanova MD CHEMISTRY Final Result [facility] [address] [place] [address], [place] * (ABNORMAL) Urinalysis TODAY (05/30/2025 6:26 PM CDT) COLOR Yellow Yellow Color 05/30/2025 6:38 PM CDT [facility] CLARITY Clear Clear Clarity 05/30/2025 6:38 PM CDT [facility] SPECIFIC GRAVITY,URINE 1.015 1.010, 1.015, 1.020, 1.025 05/30/2025 6:38 PM CDT [facility] PH,URINE 5.0(A) 6.0, 7.0, 8.0, 5.5, 6.5, 7.5, 8.5 05/30/2025 6:38 PM CDT [facility] UROBILINOGEN, QUALITATIVE Normal Normal EU/dl 05/30/2025 6:38 PM CDT [facility] PROTEIN, URINE Negative Negative mg/dL 05/30/2025 6:38 PM CDT [facility] GLUCOSE, URINE Negative Negative mg/dL 05/30/2025 6:38 PM CDT [facility] KETONES,URINE Negative Negative mg/dL 05/30/2025 6:38 PM CDT [facility] BILIRUBIN,URI NE Negative Negative 05/30/2025 6:38 PM CDT [facility] OCCULT BLOOD,URINE Negative Negative 05/30/2025 6:38 PM CDT [facility] NITRITE Negative Negative 05/30/2025 6:38 PM CDT [facility] LEUKOCYTE ESTERASE Negative Negative 05/30/2025 6:38 PM CDT [facility] Urine URINE SPECIMEN / Unknown Non-Blood / Unknown 05/30/2025 6:26 PM CDT 05/30/2025 6:31 PM CDT us Mello Casanova MD URINE Final Result [facility] [address] [place] [address], [place] * PROCALCITONIN (05/30/2025 1:00 PM CDT) PROCALCITONIN 0.11 ng/ml 05/30/2025 2:04 PM CDT [facility] Blood BLOOD SPECIMEN / Unknown Non-Lab Venipuncture / Unknown 05/30/2025 1:00 PM CDT 05/30/2025 1:11 PM CDT Narrative [facility] - 05/30/2025 2:04 PM CDT Procalcitonin [...] Mello Casanova MD SEND OUTS Final Result [facility] [address] [place] [address], * (ABNORMAL) COMP METABOLIC PANEL (05/30/2025 1:00 PM CDT) SODIUM 135(L) 136 - 145 mmol/L 05/30/2025 2:04 PM CDT [facility] POTASSIUM 5.7(H) 3.5 - 5.1 mmol/L 05/30/2025 2:04 PM CDT [facility] CHLORIDE 99 98 - 107 mmol/L 05/30/2025 2:04 PM CDT [facility] CO2,TOTAL 22 22 - 29 mmol/L 05/30/2025 2:04 PM CDT [facility] ANION GAP 14 5 - 18 05/30/2025 2:04 PM CDT [facility] GLUCOSE 288(H) 70 - 99 mg/dL 05/30/2025 2:04 PM CDT [facility] CALCIUM 8.9 8.8 - 10.4 mg/dL 05/30/2025 2:04 PM CDT [facility] Comment: Reference ranges for this test were updated on 10/04/2024 to reflect our healthy population more accurately. Reference range changes are not retroactively applied to results, but previous results using the same methodology can be interpreted in the context of the new reference range. BUN 40(H) 8 - 23 mg/dL 05/30/2025 2:04 PM CDT [facility] CREATININE 1.44(H) 0.70 - 1.20 mg/dL 05/30/2025 2:04 PM T [facility] BUN/CREAT RATIO 28(H) 10 - 20 2:04 PM T [facility] eGFR 47(L) >90 mL/min/1. 73m2 05/30/2025 2:04 PM T [facility] Comment:As of 2022, eG FR is calculated by the CKD-EPI creatinine equation without race adjustment. eGFR can be influenced by muscle mass, exercise, and diet. The reported eGFR is an estimation only and is only applicable if the renal function is stable. ALBUMIN 3.6(L) 4.0 - 4.9 g/dL 05/30/2025 2:04 PM CDT [facility] PROTEIN,TOTAL 6.5 6.0 - 8.0 g/dL 05/30/2025 2:04 PM CDT [facility] BILIRUBIN,TOTAL 0.6 0.0 - 1.2 mg/dL 05/30/2025 2:04 PM T [facility] ALK PHOSPHATASE 108 40 - 129 IU/L 05/30/2025 2:04 PM T [facility] ALT (SGPT) 20 10 - 50 IU/L 05/30/2025 2:04 PM T [facility] AST (SGOT) 26 10 - 50 IU/L 05/30/2025 2:04 PM T [facility] Blood BLOOD SPECIMEN / Unknown Non-Lab Venipuncture / Unknown 05/30/2025 1:00 PM CDT 05/30/2025 1:11 PM CDT us Toño Luna MD CHEMISTRY Final Result [facility] [address] [place] [id number], [place] * XR Chest 1 View Portable - METALSMITH (05/30/2025 3:17 AM CDT) Only the most [...] Niño MD @ 05/30/2025 03:23:05 (Electronically Signed) us Toño Luna MD GENERAL IMAGING Final Result * (ABNORMAL) CBC W PLT NO DIFF (05/20/2025 7:15 AM CDT) WHITE BLOOD COUNT 8.1 4.5 - 11.0 thou/cu mm 05/20/2025 7:41 AM CDT [facility] RED BLOOD COUNT 3.18(L) 4.30 - 5.90 mil/cu mm 05/20/2025 7:41 AM CDT [facility] HEMOGLOBIN 9.3(L) 13.5 - 17.5 g/dL 05/20/2025 7:41 AM CDT [facility] HEMATOCRIT 29.0(L) 37.0 - 53.0 % 05/20/2025 7:41 AM CDT [facility] MCV 91 80 - 100 fL 05/20/2025 7:41 AM CDT [facility] MCH 29.2 26.0 - 34.0 pg 05/20/2025 7:41 AM CDT [facility] MCHC 32.1 32.0 - 36.0 g/dL 05/20/2025 7:41 AM CDT [facility] RDW 15.3 11.5 - 15.5 % 05/20/2025 7:41 AM CDT [facility] PLATELET COUNT 241 140 - 440 thou/cu mm 05/20/2025 7:41 AM CDT [facility] MPV 10.7 6.5 - 11.0 fL 05/20/2025 7:41 AM CDT [facility] NRBC 0.0 % 05/20/2025 7:41 AM CDT [facility] ABS NRBC 0.0 thou /cu mm 05/20/2025 7:41 AM CDT [facility] Blood BLOOD SPECIMEN / Unknown Butterfly / Unknown 05/20/2025 7:15 AM CDT 05/20/2025 7:30 AM CDT us Prince Carson NP HEMATOLOGY Final Result Performing Organization Address City/[facility]/ZIP Co de Phone Number [facility] [address] [place] [address], [place] * MAGNESIUM (05/19/2025 7:35 AM CDT) Only the most recent of4 resultswithin the time period is included. MAGNESIUM 1.8 1.6 - 2.4 mg/dL 05/19/2025 8:06 AM CDT [facility] Blood BLOOD SPECIMEN / Unknown Venipuncture / Unknown 05/19/2025 7:35 AM CDT 05/19/2025 7:42 AM CDT us Sarkis Edge RN CHEMISTRY Final Result [facility] [address] [address], [place] * SCAN-CARDIAC STRIP (05/19/2025 3:18 AM CDT) us Scanner OTHER Final Result * SCAN CORRESP-EKG RESULTS (05/18/2025 11:59 AM CDT) Narrative 05/18/2025 11:59 AM CDT Ordered by an unspecified provider. us Other Clinical Staff OTHER Final Resul t * (ABNORMAL) WBC TODAY (05/18/2025 8:39 AM CDT) WHITE BLOOD COUNT 12.1(H) 4.5 - 11.0 thou/cu mm 05/18/2025 9:12 AM CDT [facility] NRBC 0.0 % 05/18/2025 9:12 AM CDT [facility] ABS NRBC 0.0 thou /cu mm 05/18/2025 9:12 AM CDT [facility] Blood BLOOD SPECIMEN / Unknown Butterfly / Unknown 05/18/2025 8:39 AM CDT 05/18/2025 8:56 AM CDT Mello Casanova MD HEMATOLOGY Final Result [facility] [address] [place] [id number], [place] * (ABNORMAL) PRO-BNP (05/18/2025 8:39 AM CDT) PRO-BNP 7,429(H) <450 pg/mL 05/18/2025 9:39 AM CDT [facility] Blood BLOOD SPECIMEN / Unknown Butterfly / Unknown 05/18/2025 8:39 AM CDT 05/18/2025 8:56 AM CDT Narrative [facility] - 05/18/2025 9:39 AM CDT The [...] Mello Casanova MD SEND OUTS Final Result [facility] [address] [place] [address], [place] * SCAN-CARDIAC STRIP (05/18/2025 1:26 AM CDT) us Scanner OTHER Final Result * SCAN-CARDIAC STRIP (05/17/2025 2:13 PM CDT) us Scanner OTHER Final Result * SCAN-CARDIAC STRIP (05/17/2025 3:35 AM CDT) [...] of the 21st Century Cures Act, medical imaging exams and [...] administration of 20 mL Clariscan. MRA head: Frer-fy-wkvpyt imaging. MRA neck: Diaw-xq-hwjnma and postcontrast imaging following intravenous administration of [...] and postcentral gyri and left occipital lobe. Zrek-rf-bappnvam diffuse cerebral volume loss. No midline shift. Patchy FLAIR hyperintensities in the supratentorial white matter, typical for vekx-so-ubyfmpcv chronic microvascular ischemic changes. 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 No pathologic intracranial enhancement. The major arterial flow voids of the skull base are preserved. Thinning of the ocular lenses. Mild left maxillary sinus mucosal thickening. Mastoid air cells are clear. MRA head: The internal carotid, middle cerebral, and anterior cerebral arteries are patent. Hjok-oe-fwvrtlli right and mild left cavernous internal carotid [...] the right basal ganglia and cerebellum. 3. Vcgg-ey-rpzhgbvd diffuse cerebral volume loss and chronic microvascular ischemic changes. MRA head/neck: 1. Intracranial atherosclerotic disease, including eeqj-hc-wvietxol right and mild left cavernous internal carotid [...] of the 21st Century Cures Act, medical imaging exams and [...] administration of 20 mL Clariscan. MRA head: Rsqc-xg-axxlfs imaging. MRA neck: Ykkj-ub-dgprbc and postcontrast imaging following intravenous administration of [...] and postcentral gyri and left occipital lobe. Vrfa-sk-xywhtirq diffuse cerebral volume loss. No midline shift. Patchy FLAIR hyperintensities in the supratentorial white matter, typical for vkvx-vu-cwipucct chronic microvascular ischemic changes. 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 No pathologic intracranial enhancement. The major arterial flow voids of the skull base are preserved. Thinning of the ocular lenses. Mild left maxillary sinus mucosal thickening. Mastoid air cells are clear. MRA head: The internal carotid, middle cerebral, and anterior cerebral arteries are patent. Qvmx-jw-zczukzak right and mild left cavernous internal carotid [...] the right basal ganglia and cerebellum. 3. Kipl-jo-yyxmrtae diffuse cerebral volume loss and chronic microvascular ischemic changes. MRA head/neck: 1. Intracranial atherosclerotic disease, including spyw-qp-kpkasdjt right and mild left cavernous internal carotid [...] administration of 20 mL Clariscan. MRA head: Egez-ts-gawiqx imaging. MRA neck: Uhvl-pn-jsompm and postcontrast imaging following intravenous administration of [...] and postcentral gyri and left occipital lobe. Yequ-pt-aivghqqk diffuse cerebral volume loss. No midline shift. Patchy FLAIR hyperintensities in the supratentorial white matter, typical for vnky-dx-yldhlaux chronic microvascular ischemic changes. 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 No pathologic intracranial enhancement. The major arterial flow voids of the skull base are preserved. Thinning of the ocular lenses. Mild left maxillary sinus mucosal thickening. Mastoid air cells are clear. MRA head: The internal carotid, middle cerebral, and anterior cerebral arteries are patent. Tdet-pp-eesanxrl right and mild left cavernous internal carotid [...] the right basal ganglia and cerebellum. 3. Hlim-yt-tcrxpyzj diffuse cerebral volume loss and chronic microvascular ischemic changes. MRA head/neck: 1. Intracranial atherosclerotic disease, including kntd-ak-letrovth right and mild left cavernous internal carotid [...] administration of 20 mL Clariscan. MRA head: Hufc-eb-cpptdt imaging. MRA neck: Huis-cu-cnvibx and postcontrast imaging following intravenousadministration of 20 [...] and postcentral gyri and left occipital lobe. Qcyk-bs-ubwkhrcm diffuse cerebral volume loss. No midline shift. PatchyFLAIR hyperintensities in the supratentorial white matter, typical vsdvzwj-mm-ioumjyor chronic microvascular ischemic changes. Chronicinfarctions in the right basal ganglia and cerebellar hemispheres. No pathologic intracranial enhancement. The major arterial flow voids of the skull base are preserved. Thinning ofthe ocular lenses. Mild left maxillary sinus mucosal thickening. Mastoidair cells are clear. MRA head: The internal carotid, middle cerebral, and anterior cerebral arteries arepatent. Fxfm-tt-auyuvaxo right and mild left cavernous internal carotidartery [...] is dominant. The vertebral artery origins and M6oysyvomv are suboptimally evaluated. The vertebral arteries are otherwisewidely patent. Impression: MRI brain: 1. Moderate acute to early subacute left middle cerebral artery territoryinfarction. 2. 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 3. Sblh-rm-oxkqzvyt diffuse cerebral volume loss and chronic microvascularischemic changes. MRA head/neck: 1. Intracranial atherosclerotic disease, including qosy-sw-bjdagqtp rightand mild left cavernous internal carotid artery stenosis as well asmoderate stenosis of the posterior cerebral artery P2 segments. 2. Atherosclerotic irregularity of the proximal cervical internal carotidarteries without hemodynamically significant luminal narrowing. Dictated by Leobardo Tracey MD @ 05/16/2025 5:26:50 PM (Electronically Signed) us Clarita pichardo Result - Final * ECHO TTE COMPLETE W CONTRAST (05/16/2025 3:08 PM CDT) AORTIC VALVE MEAN PG 4 mmHg EJECTION FRACTION 69 % LVEDD 5.1 cm EJECTION FRACTION 65 - 70% PEAK TR VELOCITY 2.8 m/s Anatomical Region Laterality Modality Ultrasound 05/16/2025 2:24 PM CDT Narrative 05/16/2025 3:36 PM CDT ECHOCARDIOGRAM BECCA Ng [facility] : 1935 89 years Study Date: 05/16/2025 2:24:46 PM Gender: M BP: 136/63 mmHg Height: 177.00 cm BSA: 2.07 m Weight: 90.00 kg Tech: ROSA Referring MD: CLARITA PINO Site: [facility] Reading Location: [facility] Patient Location: Inpatient. Procedure: 2D w/ Contrast, [...] documentation: 2 ml diluted Definity, lot #[id number], [facility]# [id number] was administered peripherally to enhance visualization of all left ventricular segments. . This study was interpreted by an [facility] accredited facility. Final Procedure Note Brooke Joshua MD - 05/16/2025 ECHOCARDIOGRAM BECCA Ng [facility] : 1935 89 years Study Date: 05/16/2025 2:24:46 PM Gender: M BP: 136/63 mmHg Height: 177.00 cm BSA: 2.07 m Weight: 90.00 kg Tech: ROSA Allison MD: CLARITA PINO Site: [facility] Reading Location: [facility] Patient Location: Inpatient. Procedure: 2D w/ Contrast, [...] documentation: 2 ml diluted Definity, lot #[id number], [facility]#[id number] was administered peripherally to enhance visualization of allleft ventricular segments. . This study was interpreted by an [facility] accredited facility. Final us Clarita Pino MD [...] @ May 16 2025 1:57PM (Electronically Signed) [email or web address] Narrative 05/16/2025 1:57 PM CDT For Patients: [...] @ May 16 2025 1:57PM (Electronically Signed) [email or web address] us Roseanne Parson COOKER OPERATOR GENERAL IMAGING Final Res ult * XR HUMERUS MIN 2 VIEWS RIGHT PORTABLE (05/16/2025 11:01 AM CDT) Anatomical Region Laterality Modality HUMERI, HUMERUS R [employer] ángela 05/16/2025 1:55 PM CDT Impressions 05/16/2025 1:55 PM CDT 1. Soft tissue swelling. 2. Negative right humerus. Dictated by Nash Brunner MD @ May 16 2025 1:55PM (Electronically Signed) [email or web address] Narrative 05/16/2025 1:55 PM CDT For Patients: [...] @ May 16 2025 1:55PM (Electronically Signed) [email or web address] Roseanne Parson COOKER OPERATOR GENERAL IMAGING Final Res ult * (ABNORMAL) Hemoglobin A1C Screening (05/16/2025 7:42 AM CDT) HEMOGLOBIN A1C SCREENING 7.5(H) <=6.4 % 05/16/2025 4:09 PM CDT [facility] Blood BLOOD SPECIMEN / Unknown Non-Lab Venipuncture / Unknown 05/16/2025 7:42 AM CDT 05/16/2025 7:49 AM CDT Narrative [facility] - 05/16/2025 4:09 PM CDT (<5.7%) Normal (5.7% to 6.4%) Indicates prediabetes (>=6.5%) Confirms diabetes Falsely low levels may be seen with: Recent Transfusion, Recent Significant Blood Loss, Hemolytic Diseases, or Falsely elevated levels may be seen with: Untreated Anemias, Splenectomy Clarita Pino MD CHEMISTRY F inal Result Performing Organization Address [facility] Co de Phone Number [facility] [address] [place], [place] [phone], [place] * aPTT (05/16/2025 7:42 AM CDT) APTT 28 25 - 36 sec 05/16/2025 8:08 AM CDT [facility] Blood BLOOD SPECIMEN / Unknown Non-Lab Venipuncture / Unknown 05/16/2025 7:42 AM CDT 05/16/2025 7:49 AM CDT [facility] - 05/16/2025 8:08 AM CDT Therapeutic Range: 59-89 seconds Clarita Pino MD HEMATOLOGY F inal Result Performing Organization Address [facility] Co de Phone Number [facility] [address] [place] [address], [place] * (ABNORMAL) Protime - INR (05/16/2025 7:42 AM CDT) INR 1.1 <1.3 05/16/2025 8:08 AM CDT [facility] PROTIME 13.0(H) 10.6 - 12.4 sec 05/16/2025 8:08 AM CDT [facility] Blood BLOOD SPECIMEN / Unknown Non-Lab Venipuncture / Unknown 05/16/2025 7:42 AM CDT 05/16/2025 7:49 AM CDT Narrative [facility] - 05/16/2025 8:08 AM CDT Therapeutic Range [...] seconds if the patient is on UFH. Clarita Pino MD HEMATOLOGY F inal Result Performing Organization Address [facility]/ZIP Co de Phone Number [facility] [address] [place] [phone], [place] * Lipid Panel (05/16/2025 7:42 AM CDT) [facility] CHOLESTEROL,TOTAL 104 100 - 199 mg/dL 05/16/2025 8:36 AM CDT [facility] Comment: Cholesterol, Total Reference Ranges Desirable <200 mg/dL Borderline 200-239 mg/dL High >=240 mg/dL TRIGLYCERIDES 49 <150 mg/dL 05/16/2025 8:36 AM CDT [facility] HDL CHOLESTEROL 51 >40 mg/dL 8:36 AM CDT [facility] NON-HDL CHOLESTEROL 53 <145 mg/dl 05/16/2025 8:36 AM CDT [facility] CHOL/HDL RATIO 2.04 <4.50 05/16/2025 8:36 AM CDT [facility] LDL CHOLESTEROL 43 <=130 mg/dL 05/16/2025 8:36 AM CDT [facility] VLDL CHOLESTEROL 10 <=30 mg/dL 05/16/2025 8:36 AM CDT [facility] PROVIDER ORDERED STATUS RANDOM 05/16/2025 8:36 AM CDT [facility] Blood BLOOD SPECIMEN / Unknown Non-Lab Venipuncture / Unknown 05/16/2025 7:42 AM CDT 05/16/2025 7:49 AM CDT Clarita Pino MD CHEMISTRY F inal Result Performing Organization Address [facility]/ZIP Co de Phone Number [facility] [address] [place] [address], [place] * IR ANGIO NEURO-INTERVENTIONAL (05/15/2025 9:55 PM CDT) Anatomical Region Laterality Modality X-Ray Angiograph y Narrative 05/15/2025 10:05 PM CDT Neurointerventional Procedure Report Patient: Becca Ng [facility] (1935), Date: 05/15/2025 Physician(s): Juan Larose MD Procedure(s): Cerebral angiography: Selective catheter placement, left internal carotid artery, with angiography of the intracranial carotid circulation (CPT 07203) Ultrasound guidance for vascular access: right common femoral artery access (CPT +87429) Pre-operative diagnosis (indication): Acute left M1 occlusion Post-operative diagnosis: Same, see Impression Anesthesia: Lidocaine 1% local Consent: Emergency consent; family unavailable Time-out: Performed according to [place] Protocol. Description: The patient was placed in [...] MEDICARE PART B HB ONLY [place] BL[place] PB ONLY [place] HB ONLY Advance Directives * Full [...] Code Status Discussion: Not Discussed Care Teams Manager Imaging Relationship Specialty Start Date End Date Pcp, No . PCP - General 05/18/25
== END 2025-08-07 17:19 | disposition home or self-care (01) ==
LOC: NPINS 17:18
PROVIDERS: Visit Provider Nurse Practitioner Gerontology
DX: N39.41 Urge incontinence (principal); R41.82 Altered mental status, unspecified; R53.1 Weakness
CPT/HCPCS: 81001; 87086